=== PATIENT | male | born 1955 | race African-American/Black ===

== ENCOUNTER 2016-08-20 02:51 | Emergency (ER) | payer MEDICAID ==
[~2016-08-20] VITALS: Ht 165.1 cm; Wt 68.9 kg
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
[2016-08-20] MEDS ORDERED: Norco 5mg/325mg tab ORAL ONE (03:15)
[2016-08-20 03:28] VITALS: BP 137/73
[2016-08-20] MEDS ORDERED: IBUPROFEN600 MG ORAL (04:22)
[2016-08-20] MEDS ORDERED: TRAMADOL HCL50 MG ORAL (04:22)
[2016-08-20 04:26] VITALS: BP 137/73
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
== END 2016-08-20 04:26 | disposition home or self-care (01) ==
LOC: EMR 03:10
DX: S20.212A Contusion of left front wall of thorax, initial encounter (principal); E11.9 Type 2 diabetes mellitus without complications; V47.0XXA Car driver injured in collision with fixed or stationary object in nontraffic accident, initial encounter; Y93.9 Activity, unspecified; Y92.9 Unspecified place or not applicable; F17.200 Nicotine dependence, unspecified, uncomplicated
CPT/HCPCS: 99284

== ENCOUNTER 2016-11-26 05:18 | Emergency (ER) | payer MEDICAID ==
[~2016-11-26] VITALS: Ht 165.1 cm; Wt 67.6 kg
[~2016-11-26 05:18] MED LIST: IBUPROFEN600 MG ORAL; TRAMADOL HCL50 MG ORAL
[2016-11-26] MEDS ORDERED: NKM (05:36)
[2016-11-26 05:40] VITALS: BP 130/86
[2016-11-26] MEDS ORDERED: HYDROCODON-ACE1 EA15 ORAL (05:45)
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
[2016-11-26 05:52] VITALS: BP 130/86
== END 2016-11-26 05:52 | disposition home or self-care (01) ==
LOC: EMR 05:30
DX: S52.502D Unspecified fracture of the lower end of left radius, subsequent encounter for closed fracture with routine healing (principal); X58.XXXD Exposure to other specified factors, subsequent encounter; E11.9 Type 2 diabetes mellitus without complications
CPT/HCPCS: 99283

== ENCOUNTER 2016-12-16 07:13 | Emergency (ER) | payer MEDICAID ==
[~2016-12-16] VITALS: Ht 165.1 cm; Wt 67.1 kg
[~2016-12-16 07:13] MED LIST changes: +HYDROCODON-ACE1 EA15 ORAL; +NKM
[2016-12-16 07:36] VITALS: BP 126/89
[2016-12-16] MEDS ORDERED: IBUPROFEN600 MG ORAL (07:43)
[2016-12-16] MEDS ORDERED: TRAMADOL HCL50 MG ORAL (07:43)
[2016-12-16 07:50] VITALS: BP 126/89
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
== END 2016-12-16 07:50 | disposition home or self-care (01) ==
LOC: EMR 07:48
DX: S62.102D Fracture of unspecified carpal bone, left wrist, subsequent encounter for fracture with routine healing (principal); E11.9 Type 2 diabetes mellitus without complications
CPT/HCPCS: 99284

== ENCOUNTER 2017-02-06 05:04 | Emergency (ER) | payer MEDICAID ==
[~2017-02-06] VITALS: Ht 165.1 cm; Wt 64.4 kg
[2017-02-06 05:27] VITALS: BP 116/79
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
[2017-02-06] MEDS ORDERED: IBUPROFEN600 MG ORAL (05:45)
[2017-02-06 05:58] VITALS: BP 110/76
--- NOTE | 2017-02-06 11:25 | Diagnostic Imaging Report ---
Clinical Indication:PAIN Technique: 3 views of the left wrist Comparison: None Findings: There is an impacted comminuted posteriorly angulated fracture deformity of the distal radius, which enters the joint surface. No definite associated ulnar fracture. No ulnar styloid is visualized, however. No carpal fracture. Bones are osteoporotic. Impression: Positive for distal radial fracture, age indeterminate. Correlate with clinical findings This agrees with the ER physician findings reported in the electronic medical record
--- NOTE | 2017-02-06 11:25 | Diagnostic Imaging Report ---
Indication: SOB Technique: One view of the chest Comparison: none Findings: Lungs and pleural spaces are clear. Heart size is normal. Impression: No acute process
== END 2017-02-06 05:58 | disposition home or self-care (01) ==
LOC: EMR 05:23
DX: S52.502A Unspecified fracture of the lower end of left radius, initial encounter for closed fracture (principal); X58.XXXA Exposure to other specified factors, initial encounter; Y92.9 Unspecified place or not applicable; E11.9 Type 2 diabetes mellitus without complications
CPT/HCPCS: 71010; 99284

== ENCOUNTER 2017-11-03 10:34 | Emergency (ER) | payer MEDICAID ==
[~2017-11-03] VITALS: Ht 175.3 cm; Wt 61.2 kg
[2017-11-03 10:39] VITALS: BP 157/89
[2017-11-03] MEDS ORDERED: Norco 5mg/325mg tab ORAL ONE (11:00)
[2017-11-03] MEDS ORDERED: Tetanus/Diptheria/Pertussis Vaccine 0.5ml Syr IM ONE (11:00)
--- NOTE | 2017-11-03 11:54 | Diagnostic Imaging Report ---
EXAM: CT Chest Without Intravenous Contrast CLINICAL HISTORY: PAIN TECHNIQUE: Axial computed tomography images of the chest without intravenous contrast. For the combined chest, abdomen, and pelvis exams, CTDI is 10. 91 mGy and DLP is 701 mGy-cm. One or more of the following dose reduction techniques were used: automated exposure control, adjustment of the mA and/or kV according to patient size, use of iterative reconstruction technique. COMPARISON: No relevant prior studies available. FINDINGS: Lungs: Scattered paraseptal emphysematous changes prominently in the upper lung zones. The lungs are otherwise clear. Pleural space: Unremarkable. No pneumothorax. No significant effusion. Heart: Unremarkable. No cardiomegaly. No significant pericardial effusion. Bones/joints: Remote healed fracture deformities of the anterolateral aspects of the left fourth and fifth ribs. No dislocation. Soft tissues: Unremarkable. Vasculature: Atherosclerotic calcifications are noted within the aortic arch. No aneurysmal dilatation seen in the thoracic aorta. Lymph nodes: Unremarkable. No enlarged lymph nodes. IMPRESSION: 1. Scattered paraseptal emphysematous changes prominently in the upper lung zones. 2. Remote healed fracture deformities of the anterolateral aspects of the left fourth and fifth ribs. EXAM: CT Abdomen and Pelvis Without Intravenous Contrast CLINICAL HISTORY: PAIN TECHNIQUE: Axial computed tomography images of the abdomen and pelvis without intravenous contrast. For the combined chest, abdomen, and pelvis exams, CTDI is 10.91 mGy and DLP is 701 mGy-cm. One or more of the following dose reduction techniques were used: automated exposure control, adjustment of the mA and/or kV according to patient size, use of iterative reconstruction technique. COMPARISON: No relevant prior studies available. FINDINGS: Lung bases: Unremarkable. No mass. No consolidation. ABDOMEN: Liver: Mild hepatomegaly, measuring 19.6 cm craniocaudally. The liver otherwise appears unremarkable. Gallbladder and bile ducts: Unremarkable. No calcified stones. No ductal dilation. Pancreas: Unremarkable. No ductal dilation. Spleen: Unremarkable. No splenomegaly. Adrenals: Unremarkable. No mass. Kidneys and ureters: Unremarkable. No obstructing stones. No hydronephrosis. Stomach and bowel: Mild gaseous distention of the sigmoid colon, nonspecific. Otherwise appears unremarkable without focal wall thickening. No evidence of obstruction. Normal caliber of small bowel loops. Stomach and GE junction appear unremarkable. PELVIS: Appendix: No findings to suggest acute appendicitis. Bladder: Unremarkable. No stones. Reproductive: Unremarkable as visualized. ABDOMEN and PELVIS: Intraperitoneal space: Unremarkable. No free air. No significant fluid collection. Bones/joints: No acute fracture. No dislocation. Soft tissues: Unremarkable. Vasculature: Unremarkable. No abdominal aortic aneurysm. Lymph nodes: Unremarkable. No enlarged lymph nodes. IMPRESSION: 1. Mild hepatomegaly, measuring 19.6 cm craniocaudally. 2. Mild gaseous distention of the sigmoid colon, nonspecific.
--- NOTE | 2017-11-03 12:00 | Diagnostic Imaging Report ---
EXAM: CT Maxillofacial Without Intravenous Contrast CLINICAL HISTORY: PAIN TECHNIQUE: Axial computed tomography images of the face without intravenous contrast. CTDI is 28.19 mGy and DLP is 532.82 mGy-cm. One or more of the following dose reduction techniques were used: automated exposure control, adjustment of the mA and/or kV according to patient size, use of iterative reconstruction technique. COMPARISON: No relevant prior studies available. FINDINGS: Bones/joints: Comminuted mildly displaced nasal bone fracture with overlying soft tissue swelling. Mildly displaced fracture of the left anterior maxillary sinus wall. Dehiscence of the right lamina papyracea/medial right orbital wall. Soft tissues: Bilateral periorbital and maxillary soft tissue swelling. Orbits: See above. Orbits otherwise appear intact. Sinuses: Fluid level in the left maxillary sinus, opacification of the right maxillary sinus, and mucosal thickening in the ethmoid and sphenoid sinuses. IMPRESSION: 1. Comminuted and mildly displaced nasal bone fracture with overlying soft tissue swelling. 2. Mildly displaced fracture of the left anterior maxillary sinus wall. 3. Dehiscence of the right lamina papyracea/medial right orbital wall. 4. Fluid level in the left maxillary sinus, opacification of the right maxillary sinus, and mucosal thickening in the ethmoid and sphenoid sinuses. 5. Bilateral periorbital and maxillary soft tissue swelling.
--- NOTE | 2017-11-03 12:10 | Diagnostic Imaging Report ---
EXAM: CT Head Without Intravenous Contrast CLINICAL HISTORY: PAIN TECHNIQUE: Axial computed tomography images of the head/brain without intravenous contrast. CTDI is 70.38 mGy and DLP is 1316 mGy-cm. One or more of the following dose reduction techniques were used: automated exposure control, adjustment of the mA and/or kV according to patient size, use of iterative reconstruction technique. COMPARISON: CT of the facial bones dated 11/03/17 FINDINGS: Brain: Unremarkable. No evidence of acute intracranial hemorrhage. No significant white matter disease. No edema. No mass effect or midline shift. Ventricles: Unremarkable. No ventriculomegaly. Bones/joints: Dehiscence of the right lamina papyracea. Soft tissues: Bilateral periorbital soft tissue swelling. Sinuses: Mucosal thickening in the ethmoid and sphenoid sinuses with a fluid level in the left maxillary sinus and opacification of the right maxillary sinus. Mastoid air cells: Unremarkable as visualized. No mastoid effusion. IMPRESSION: 1. No acute intracranial findings. 2. Mucosal thickening in the ethmoid and sphenoid sinuses with a fluid level in the left maxillary sinus and opacification of the right maxillary sinus. 3. Bilateral periorbital soft tissue swelling.
[2017-11-03] MEDS ORDERED: NORCO 5-325 TA1 EACH ORAL (13:22)
[2017-11-03] MEDS ORDERED: AMOXICILLIN500 MG ORAL (13:22)
[2017-11-03 13:51] VITALS: BP 150/74
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
== END 2017-11-03 13:52 | disposition home or self-care (01) ==
LOC: EDBD 10:34 → EMR 11:47
DX: S02.2XXA Fracture of nasal bones, initial encounter for closed fracture (principal); S02.40DA Maxillary fracture, left side, initial encounter for closed fracture; S00.01XA Abrasion of scalp, initial encounter; Y04.2XXA Assault by strike against or bumped into by another person, initial encounter; Y92.9 Unspecified place or not applicable; Z23 Encounter for immunization
CPT/HCPCS: 70450; 70486; 71250; 74176; 90471; 90715; 99284

== ENCOUNTER 2019-06-22 16:40 | Emergency (ER) | payer MEDICARE, MEDICAID ==
[~2019-06-22] VITALS: Ht 165.1 cm; Wt 63.5 kg
[~2019-06-22 16:40] MED LIST changes: +AMOXICILLIN500 MG ORAL; +NORCO 5-325 TA1 EACH ORAL
[2019-06-22 16:45] VITALS: BP 126/92
--- NOTE | 2019-06-22 16:45 | NUR ---
ED Nurse Note: Patient was BIBA RA 67 from work for syncopal episode. PT admits to loss of conscious, denies any injury. AAO x4, VSS at this time.
--- NOTE | 2019-06-22 16:46 | NUR ---
ED Nurse Note: Patient presented with open wound on his left ring finger, stated it was a cut, and it got infected.
--- NOTE | 2019-06-22 17:15 | NUR ---
ED Nurse Note: blood specimen collected sent down
[2019-06-22 17:49] LABS: BASOPHILS % (AUTO) 1.3 % (0.0-2.0); EOSINOPHILS % (AUTO) 0.2 % (0.0-3.0); HEMATOCRIT 36.1 % (42.0-52.0); LYMPHOCYTES % (AUTO) 10.6 % (20.0-45.0); MEAN CORPUSCULAR VOLUME 100 FL (80-99); MONOCYTES % (AUTO) 7.1 % (1.0-10.0); NEUTROPHILS % (AUTO) 80.7 % (45.0-75.0); PLATELET COUNT 240 K/UL (150-450); RED CELL DISTRIBUTION WIDTH 16.7 % (11.6-14.8); WHITE BLOOD COUNT 10.6 K/UL (4.8-10.8)
[2019-06-22 17:55] LABS: INR 1.3 (0.9-1.1)
[2019-06-22 18:01] LABS: ANION GAP 13 mmol/L (5-15); BLOOD UREA NITROGEN 6 mg/dL (7-18); CALCIUM 8.6 MG/DL (8.5-10.1); CARBON DIOXIDE 22 MMOL/L (21-32); CHLORIDE 103 MMOL/L (98-107); CREATININE 1.3 MG/DL (0.55-1.30); POTASSIUM 3.2 MMOL/L (3.5-5.1); SODIUM 138 MMOL/L (136-145)
[2019-06-22 18:13] LABS: ALANINE AMINOTRANSFERASE 66 U/L (12-78); ALBUMIN 2.3 G/DL (3.4-5.0); ALBUMIN/GLOBULIN RATIO 0.4 (1.0-2.7); ALKALINE PHOSPHATASE 447 U/L (46-116); ASPARTATE AMINO TRANSFERASE 128 U/L (15-37); BILIRUBIN,TOTAL 2.4 MG/DL (0.2-1.0)
[2019-06-22 18:15] LABS: BILIRUBIN,DIRECT 1.4 MG/DL (0.0-0.3)
[2019-06-22 18:40] VITALS: BP 118/88
--- NOTE | 2019-06-22 18:41 | NUR ---
ED Nurse Note: Patient resting in the bed with eyes closed, VSS at this time, no acute distres toned.
--- NOTE | 2019-06-22 19:44 | NUR ---
HAND-OFF: Report given to Willie Hernandez RN.
[2019-06-22 20:00] VITALS: BP 121/79
--- NOTE | 2019-06-22 21:27 | NUR ---
ED Nurse Note: report given to luisa cruz of [facility]. patient to be admitted to [place] [id number] under the care of laura wallace.
--- NOTE | 2019-06-22 22:14 | Emergency Room Report ---
History of Present Illness General Chief Complaint: Syncope Source: Patient, EMS Present Illness HPI This patient states earlier today he was feeling lightheaded and had a syncopal episode at work. He denies injury or head trauma. He states that he has not felt very well the past few days. He states he has been coughing. He denies fever chills. He denies nausea or vomiting. He has no other complaints. Allergies: Coded Allergies: No Known Allergies (Unverified , 08/20/16) Patient History Past Medical History: see triage record, DM, HTN, other - HEP C Social History: Reports: drug use; Denies: smoking, alcohol use Reviewed Nursing Documentation: PMH: Agreed; PSxH: Agreed Nursing Documentation-PMH Past Medical History: No History, Except For Hx Hypertension: Yes Hx Diabetes: Yes Hx Neurological Problems: No - Left Radius fracture Review of Systems All Other Systems: negative except mentioned in HPI Physical Exam Vital Signs Date Time Temp Pulse Resp B/P (MAP) Pulse Ox O2 Delivery O2 Flow Rate FiO2 06/22/19 16:36 98.1 86 12 126/92 (103) 100 Room Air Sp02 EP Interpretation: reviewed, normal General Appearance: no apparent distress, alert, GCS 15, non-toxic Head: normocephalic, atraumatic Eyes: bilateral eye normal inspection, bilateral eye PERRL ENT: hearing grossly normal, normal pharynx, no angioedema, normal voice Neck: full range of motion, supple/symm/no masses Respiratory: chest non-tender, lungs clear, normal breath sounds, no respiratory distress, no retraction, no accessory muscle use, speaking full sentences Cardiovascular #1: regular rate, rhythm, no edema Gastrointestinal: normal bowel sounds, non tender, soft, non-distended, no guarding, no rebound Rectal: deferred Musculoskeletal: back normal, normal range of motion, gait/station normal, non- tender, other - Non-healing wound between the 4t and 5th digitis at the web space. Irregular and approximately 2cm. Neurologic: alert, motor strength/tone normal, oriented x3, sensory intact, responsive, speech normal Psychiatric: judgement/insight normal, memory normal, mood/affect normal, no suicidal/homicidal ideation Skin: no rash, normal color Medical Decision Making Diagnostic Impression: Primary Impression: Syncope Additional Impression: non-healing wound of hand ER Course This patient presents with multiple syncopal episodes. Overall, the patient is well-appearing. He denies head injury. He is neurologically intact. The patient's work-up in the emergency department is unremarkable. I feel that this patient should be admitted for further evaluation by cardiology and observation on telemetry. No acute emergency medical condition was identified. The patient was stable for transfer and was transferred to a contracted hospital at the request of the insurance company. Laboratory Tests Test 06/22/19 17:05 White Blood Count 10.6 K/UL (4.8-10.8) Red Blood Count 3.60 M/UL (4.70-6.10) L Hemoglobin 11.0 G/DL (14.2-18.0) L Hematocrit 36.1 % (42.0-52.0) L Mean Corpuscular Volume 100 FL (80-99) H Mean Corpuscular Hemoglobin 30.6 PG (27.0-31.0) Mean Corpuscular Hemoglobin Concent 30.6 G/DL (32.0-36.0) L Red Cell Distribution Width 16.7 % (11.6-14.8) H Platelet Count 240 K/UL (150-450) Mean Platelet Volume 8.8 FL (6.5-10.1) Neutrophils (%) (Auto) 80.7 % (45.0-75.0) H Lymphocytes (%) (Auto) 10.6 % (20.0-45.0) L Monocytes (%) (Auto) 7.1 % (1.0-10.0) Eosinophils (%) (Auto) 0.2 % (0.0-3.0) Basophils (%) (Auto) 1.3 % (0.0-2.0) Prothrombin Time 13.5 SEC (9.30-11.50) H Prothrombin Time INR 1.3 (0.9-1.1) H Activated Partial Thromboplast Time 25 SEC (23-33) Sodium Level 138 MMOL/L (136-145) Potassium Level 3.2 MMOL/L (3.5-5.1) L Chloride Level 103 MMOL/L (98-107) Carbon Dioxide Level 22 MMOL/L (21-32) Anion Gap 13 mmol/L (5-15) Blood Urea Nitrogen 6 mg/dL (7-18) L Creatinine 1.3 MG/DL (0.55-1.30) Estimate Glomerular Filtration Rate > 60 mL/min (>60) Glucose Level 177 MG/DL (74-106) H Calcium Level 8.6 MG/DL (8.5-10.1) Total Bilirubin 2.4 MG/DL (0.2-1.0) H Direct Bilirubin 1.4 MG/DL (0.0-0.3) H Aspartate Amino Transferase (AST) 128 U/L (15-37) H Alanine Aminotransferase (ALT) 66 U/L (12-78) Alkaline Phosphatase 447 U/L (46-116) H Troponin I 0.003 ng/mL (0.000-0.056) Total Protein 8.0 G/DL (6.4-8.2) Albumin 2.3 G/DL (3.4-5.0) L Globulin 5.7 g/dL Albumin/Globulin Ratio 0.4 (1.0-2.7) L EKG Diagnostic Results Rate: normal Rhythm: NSR ST Segments: other - NSST findings Rhythm Strip Diag. Results EP Interpretation: yes Rate: 80's Rhythm: NSR, no PVC's, no ectopy Chest X-Ray Diagnostic Results Chest X-Ray Diagnostic Results : Chest X-Ray Ordered: Yes # of Views/Limited/Complete: 1 View Indication: Other EP Interpretation: Yes Interpretation: no consolidation, no effusion, no pneumothorax, no acute cardiopulmonary disease Impression: No acute disease Electronically Signed by: Dayanna Zuñiga DO Last Vital Signs Date Time Temp Pulse Resp B/P (MAP) Pulse Ox O2 Delivery O2 Flow Rate FiO2 06/22/19 18:40 98.1 82 18 118/88 100 Room Air Disposition: ADMITTED INPATIENT Condition: Stable Referrals: NON PHYSICIAN (PCP) Dayanna Zuñiga DO Jun 22, 2019 22:14
[2019-06-22 22:30] VITALS: BP 121/79
[2019-06-22] MEDS ORDERED: Vancomycin 1 GM in NS 275 ML IVPB ONE (22:30)
--- NOTE | 2019-06-22 22:30 | NUR ---
ED Nurse Note: report given to [facility]. patient stable for transport. iv intact and patent. patient left ed via gurney with all belongings and transfer packet.
--- NOTE | 2019-06-23 10:54 | Diagnostic Imaging Report ---
Indication: Chest pain Technique: One view of the chest Comparison: 02/06/2017 Findings: Lungs and pleural spaces are clear. Heart size is normal. The aorta is tortuous. Findings are unchanged Impression: No acute process
== END 2019-06-22 22:30 | disposition other institution (70) ==
LOC: EDBD 16:40 → EMR 17:20
DX: R55 Syncope and collapse (principal); S61.402A Unspecified open wound of left hand, initial encounter; X58.XXXA Exposure to other specified factors, initial encounter; Y92.9 Unspecified place or not applicable; E11.9 Type 2 diabetes mellitus without complications; I10 Essential (primary) hypertension; Z86.19 Personal history of other infectious and parasitic diseases; R05 Cough; R07.9 Chest pain, unspecified
CPT/HCPCS: 36415; 71045; 80053; 82248; 84484; 85025; 85610; 85730; 93005; 96361; 96365; 99284; J3370; J7030; J7050

== ENCOUNTER 2019-07-12 05:05 | Inpatient (IN) | payer MEDICARE, MEDICAID ==
[~2019-07-12] VITALS: Ht 177.8 cm; Wt 72.6 kg
[2019-07-12 05:10] VITALS: BP 154/91
--- NOTE | 2019-07-12 05:10 | NUR ---
ED Nurse Note: Pt brought into ED from the street by JODIE AMADOR for c/o shortness of breath, cough and reported fever. Pt states he has been feeling short of breath for the last month and it has become worse. Pt was recently DC from [facility] days ago. Per JODIE, pt was given 1 breathing treatment en route with no relief. Audible wheezing noted. Pt is aaox4, breathing is labored, no cardiac distress. Pt connected to director pharmacovigilance and placed into gown. Pt oxgen saturation is 99% on room air at this time.
--- NOTE | 2019-07-12 05:10 | NUR ---
ED Nurse Note: Pt is wearing a mask upon ED arrival.
--- NOTE | 2019-07-12 05:10 | NUR ---
ED Nurse Note: Pt has open wound approx 1-2 inches in length to L 5th digit on hand with yellow discharge and foul odor. Pt placed in trauma room, COVID-19 precuations taken and safety measures in place. Pt has no fever at this time, temp is 98.1F rectal. Will continue to monitor pt.
--- NOTE | 2019-07-12 05:15 | NUR ---
ED Nurse Note: IV line established, blood drawn by RN and sent to lab.
--- NOTE | 2019-07-12 05:25 | Emergency Room Report ---
History of Present Illness General Chief Complaint: Dyspnea/Respdistress Source: Patient, Medical Record, EMS (Ronnie Easley MD) Present Illness HPI This is a 64-year-old male with history of high blood pressure and diabetes. He presents with complaint shortness of breath. Onset for 1 to 2 months per patient. Worse in the last few days. Fever started today. He was just discharged from [facility] after being seen here and transferred there for syncope. He said he was there for 5 days. He was just discharged 4 days ago. Symptoms worsened since he got discharged. Hard time breathing. EMS gave him breathing treatment and sent him here. Patient denies any nausea vomiting. Said he felt weak. Still smoking. Last cocaine use was a week ago. Denies any chest pain. Nothing made it better. Nothing made it worse. Nothing is nonproductive in nature. (Ronnie Easley MD) Allergies: Coded Allergies: No Known Allergies (Unverified , 08/20/16) COVID-19 Screening Contact w/high risk pt: Yes Recent Travel to affected area: No Experienced COVID-19 symptoms?: Yes COVID-19 symptoms experienced: Fever (T>100.4F or >38C), Shortness of Breath, Cough (Ronnie Easley MD) Patient History Past Medical History: see triage record, old chart reviewed, DM, HTN, COPD Past Surgical History: other Pertinent Family History: none Social History: Reports: smoking, alcohol use, drug use Immunizations: other Reviewed Nursing Documentation: PMH: Agreed; PSxH: Agreed (Ronnie Easley MD) Nursing Documentation-PMH Hx Hypertension: Yes Hx Diabetes: Yes Hx Neurological Problems: No - Left Radius fracture (Ronnie Easley MD) Review of Systems Constitutional: Reports: chills, fever, malaise, weakness Eye: Denies: eye pain, blurred vision ENT: Denies: ear pain, nose congestion, throat swelling Respiratory: Reports: cough, shortness of breath Cardiovascular: Denies: chest pain, palpitations Gastrointestinal: Denies: abdominal pain, diarrhea, nausea, vomiting Musculoskeletal: Denies: back pain, joint pain Skin: Denies: rash Neurological: Denies: headache, numbness Endocrine: Denies: increased thirst, increased urine Hematologic/Lymphatic: Denies: easy bruising All Other Systems: negative except mentioned in HPI (Ronnie Easley MD) Physical Exam Vital Signs Date Time Temp Pulse Resp B/P (MAP) Pulse Ox O2 Delivery O2 Flow Rate FiO2 07/12/19 05:02 100.0 100 22 136/72 (93) 92 Room Air Vitals with fever and hypoxia Sp02 EP Interpretation: reviewed, normal General Appearance: alert, mild distress, other - Ill-appearing Head: normocephalic, atraumatic Eyes: bilateral eye PERRL, bilateral eye EOMI ENT: hearing grossly normal, normal pharynx Neck: full range of motion, supple, no meningismus Respiratory: chest non-tender, decreased breath sounds, rhonchi - Mild Cardiovascular #1: regular rate, rhythm, no murmur Gastrointestinal: normal bowel sounds, non tender, no mass, no organomegaly, no bruit, non-distended Musculoskeletal: back normal, normal range of motion, gait/station normal Psychiatric: mood/affect normal (Ronnie Easley MD) Medical Decision Making Diagnostic Impression: Primary Impression: Suspected COVID-19 virus infection Additional Impressions: Community acquired pneumonia Qualified Codes: J18.9 - Pneumonia, unspecified organism Respiratory distress COPD exacerbation Cocaine abuse ER Course Patient presents with respiratory distress. He does have a low-grade fever with cough and congestion. On physical exam, laboratory data and diagnostic study, patient suspected to have coronavirus infection. Antibiotics given. CT scan pending. Patient is stable for transfer based on insurance will admit here. No evidence of ACS, PE, dissection to name a few. I will sign this patient out to Dr. Vera for final disposition. (Ronnie Easley MD) EKG Diagnostic Results Rate: normal Rhythm: NSR ST Segments: other - NSST changes (Ronnie Easley MD) Rhythm Strip Diag. Results EP Interpretation: yes Rate: 92 Rhythm: NSR, no PVC's, no ectopy (Ronnie Easley MD) Chest X-Ray Diagnostic Results Chest X-Ray Diagnostic Results : Chest X-Ray Ordered: Yes # of Views/Limited/Complete: 1 View Indication: Shortness of Breath EP Interpretation: Yes Interpretation: no effusion, no pneumothorax, other - Interstitial infiltrate in the right lower lobe Impression: Other - RLL interstitial infiltrate Electronically Signed by: Ronnie Easley MD (Ronnie Easley MD) CT/MRI/US Diagnostic Results CT/MRI/US Diagnostic Results : Impression Final Report EXAM: CT Chest Without Intravenous Contrast CLINICAL HISTORY: SOB TECHNIQUE: Axial computed tomography images of the chest without intravenous contrast. CTDI is 4.6 mGy and DLP is 161 mGy-cm. One or more of the following dose reduction techniques were used: automated exposure control, adjustment of the mA and/or kV according to patient size, use of iterative reconstruction technique. COMPARISON: 11/03/17 FINDINGS: Lungs: Exam mildly limited by patient respiratory motion. There is no evidence of airspace consolidation. No pulmonary edema. Mild emphysematous changes again seen with peripheral bulla in both upper lobes. Pleural space: Unremarkable. No pneumothorax. No significant effusion. Heart: Unremarkable. No cardiomegaly. No significant pericardial effusion. Bones/joints: No acute fracture or dislocation. Old, healed left-sided rib fractures again seen. Soft tissues: Unremarkable. Vasculature: Unremarkable. No thoracic aortic aneurysm. Lymph nodes: Unremarkable. No enlarged lymph nodes. IMPRESSION: No evidence of airspace consolidation or acute interstitial abnormality. Mild emphysematous changes. No pleural effusions or pneumothorax. Radiologist: Frank Mcelroy M.D. Electronically Signed: 07/12/19 07:38 Study ready at 07:31 and initial results transmitted at 07:38 (Robbie Vera MD) Last Vital Signs Date Time Temp Pulse Resp B/P (MAP) Pulse Ox O2 Delivery O2 Flow Rate FiO2 07/12/19 05:02 100.0 100 22 136/72 (93) 92 Room Air Status: improved (Ronnie Easley MD) Reevaluation Time: 08:43 Reevaluation Impression Assumed care of the patient approximately 6:30 AM from previous provider. Briefly, this 64-year-old male presenting for shortness of breath, cough with low-grade fever. Labs have returned largely within normal limits aside from elevated liver enzymes and bilirubin, cocaine positive, slight anemia. At the time of signout we are awaiting CT scan. Show no pleural effusion, no interstitial abnormality, no consolidation but note mild emphysematous changes. The patient received steroids, MDI inhaler, ceftriaxone azithromycin. The patient's symptoms and history are concerning for COVID-19 infection. Flu swabs are negative. Will send coronavirus swabs. Patient will be admitted with isolation precautions. Admit to panel physician. (Robbie Vera MD) Disposition: ADMITTED INPATIENT Condition: Serious Ronnie Easley MD Jul 12, 2019 05:25 Robbie Vera MD Jul 12, 2019 08:46
[2019-07-12] MEDS ORDERED: Acetaminophen 500mg (ES) tab ORAL ONE (05:30)
--- NOTE | 2019-07-12 05:35 | NUR ---
ED Nurse Note: Urine collected and sent to lab.
[2019-07-12 05:38] LABS: BASOPHILS % (AUTO) 1.2 % (0.0-2.0); EOSINOPHILS % (AUTO) 2.3 % (0.0-3.0); HEMATOCRIT 31.9 % (42.0-52.0); HEMOGLOBIN 10.5 G/DL (14.2-18.0); LYMPHOCYTES % (AUTO) 40.2 % (20.0-45.0); MEAN CORPUSCULAR VOLUME 94 FL (80-99); MONOCYTES % (AUTO) 15.8 % (1.0-10.0); NEUTROPHILS % (AUTO) 40.5 % (45.0-75.0); PLATELET COUNT 286 K/UL (150-450); RED CELL DISTRIBUTION WIDTH 15.1 % (11.6-14.8); WHITE BLOOD COUNT 9.1 K/UL (4.8-10.8)
[2019-07-12 05:59] LABS: ANION GAP 9 mmol/L (5-15); BLOOD UREA NITROGEN 9 mg/dL (7-18); CALCIUM 8.1 MG/DL (8.5-10.1); CARBON DIOXIDE 26 MMOL/L (21-32); CHLORIDE 105 MMOL/L (98-107); CREATININE 0.9 MG/DL (0.55-1.30); INR 1.1 (0.9-1.1); POTASSIUM 3.3 MMOL/L (3.5-5.1); SODIUM 140 MMOL/L (136-145)
[2019-07-12 06:08] LABS: APPEARANCE,URINE CLEAR; BILIRUBIN, URINE NEGATIVE (NEGATIVE); COLOR,URINE BROWN; GLUCOSE, URINE (UA) NEGATIVE (NEGATIVE); KETONES,URINE NEGATIVE (NEGATIVE); LEUKOCYTE ESTERASE ,URINE NEGATIVE (NEGATIVE); NITRITE,URINE NEGATIVE (NEGATIVE); PH,URINE 6 (4.5-8.0); PROTEIN,URINE 2+ (NEGATIVE); UROBILINOGEN,URINE 12 MG/DL (0.0-1.0)
[2019-07-12 06:12] LABS: ALANINE AMINOTRANSFERASE 89 U/L (12-78); ALBUMIN 2.7 G/DL (3.4-5.0); ALBUMIN/GLOBULIN RATIO 0.5 (1.0-2.7); ALKALINE PHOSPHATASE 416 U/L (46-116); ASPARTATE AMINO TRANSFERASE 156 U/L (15-37); BILIRUBIN,TOTAL 1.1 MG/DL (0.2-1.0); CKMB 2.8 NG/ML (0.0-3.6); CREATINE KINASE 272 U/L (26-308)
[2019-07-12 06:13] LABS: BILIRUBIN,DIRECT 0.9 MG/DL (0.0-0.3)
[2019-07-12] MEDS ORDERED: Azithromycin 500 MG in NS 275 ML IV ONE (06:30)
[2019-07-12] MEDS ORDERED: Solu-MEDROL 125mg Inj IVP ONE (06:30)
[2019-07-12] MEDS ORDERED: cefTRIAXone 1 GM in NS 55 ML IVPB ONE (06:30)
--- NOTE | 2019-07-12 06:30 | NUR ---
ED Nurse Note: Pt is sleeping at this time. No acute distress noted. Pt does not appear to be short of breath. IV antibx initiated. Will continue to monitor. All COVID-19 precautions taken, pt is wearing a mask.
[2019-07-12 06:40] VITALS: BP 123/71
--- NOTE | 2019-07-12 07:07 | Diagnostic Imaging Report ---
EXAM: XR Chest, 1 View CLINICAL HISTORY: SOB TECHNIQUE: Frontal view of the chest. COMPARISON: 06/22/19. FINDINGS: Lungs: Lungs are slightly hypoinflated. No definite airspace consolidation. No pulmonary edema. Minimal atelectasis seen in the lung bases. Pleural space: Unremarkable. No pneumothorax. Heart: Unremarkable. No cardiomegaly. Mediastinum: No mediastinal widening or shift. Bones/joints: No acute osseous abnormality. IMPRESSION: No definite acute cardiopulmonary abnormality.
--- NOTE | 2019-07-12 07:08 | NUR ---
ED Nurse Note: Pt in radiology
--- NOTE | 2019-07-12 07:08 | NUR ---
HAND-OFF: Report given to GUS Mckeon Pt is in CT scan at this time. No acute distress noted. Vital signs are stable.
--- NOTE | 2019-07-12 07:11 | NUR ---
ED Nurse Note: Report received from GUS Tiwari. Plan of care endorsed. Pt currently in radiology
--- NOTE | 2019-07-12 07:14 | NUR ---
ED Nurse Note: Pt back from radiology
--- NOTE | 2019-07-12 07:27 | NUR ---
ED Nurse Note: Pt sleeping comfortably in bed with stable vital signs. No signs of acute distress noted. Respirations even and unlabored on room air. 95% O2 saturation. Pt running azithromycin at prescribed rate.
--- NOTE | 2019-07-12 07:39 | Diagnostic Imaging Report ---
EXAM: CT Chest Without Intravenous Contrast CLINICAL HISTORY: SOB TECHNIQUE: Axial computed tomography images of the chest without intravenous contrast. CTDI is 4.6 mGy and DLP is 161 mGy-cm. One or more of the following dose reduction techniques were used: automated exposure control, adjustment of the mA and/or kV according to patient size, use of iterative reconstruction technique. COMPARISON: 11/03/17 FINDINGS: Lungs: Exam mildly limited by patient respiratory motion. There is no evidence of airspace consolidation. No pulmonary edema. Mild emphysematous changes again seen with peripheral bulla in both upper lobes. Pleural space: Unremarkable. No pneumothorax. No significant effusion. Heart: Unremarkable. No cardiomegaly. No significant pericardial effusion. Bones/joints: No acute fracture or dislocation. Old, healed left-sided rib fractures again seen. Soft tissues: Unremarkable. Vasculature: Unremarkable. No thoracic aortic aneurysm. Lymph nodes: Unremarkable. No enlarged lymph nodes. IMPRESSION: No evidence of airspace consolidation or acute interstitial abnormality. Mild emphysematous changes. No pleural effusions or pneumothorax.
--- NOTE | 2019-07-12 08:25 | NUR ---
ED Nurse Note: Pt desating to 88-90% on room air. Applied 2 L NC, pt now 95%. Respirations even and unlabored. No SOB noted.
[2019-07-12 08:49] VITALS: BP 129/74
--- NOTE | 2019-07-12 08:49 | NUR ---
ED Nurse Note: Report given to GUS Reyna in SDU
--- NOTE | 2019-07-12 09:10 | NUR ---
ED Nurse Note: Pt transferred safely on the monitor to SDU with rule out COVID precautions in place. Belongings list verified @ bedside
--- NOTE | 2019-07-12 09:10 | NUR ---
NURSE NOTES: received patient report from slime cruz from ER. patient came in via gurney. patient came in droplet px. on 2 Li NC. cardiac monitor technician initiated. SR on the monitor. IV line noted. VS taken and recorded.noted to be alert oriented. belongings checked. patient was oriented to the floor.under the care of Dr Alan. will continue to monitor.
[2019-07-12 09:22] VITALS: BP 145/78
--- NOTE | 2019-07-12 10:30 | NUR ---
NURSE NOTES: ATTEMPTED TO CALL DR FERNANDEZ FOR ADMISSION ORDERS. VOICEMAIL SAYS: "SABINA FERNANDEZ IS ON THE PHONE". WILL ATTEMP AGAIN LATER.
[2019-07-12 12:00] VITALS: BP 155/80
[2019-07-12] MEDS ORDERED: Nitroglycerin Subl 0.4mg tab SL PRN (13:00)
[2019-07-12] MEDS: Aspirin Baby 81mg ORAL SCH (14:00)
[2019-07-12] MEDS: Potassium Chloride 40 MEQ in 1/2 NS 1000ml 1,000 ML IV SCH (14:00)
--- NOTE | 2019-07-12 16:14 | History and Physical Report ---
DATE OF ADMISSION: 07/12/2019 CHIEF COMPLAINT AND REASON FOR HOSPITALIZATION: The patient is a 64-year-old homeless male admitted with, "I passed out." HISTORY OF PRESENT ILLNESS: The patient is a poor historian. Apparently, he was recently in [facility] after being seen in the emergency room for syncope at [place]. There was some complaint of difficulty breathing and he came to the emergency room again. There is a history of cocaine use and smoking. A COVID-19 test was done in the emergency room and is pending. There is no fever or chills. A CT of the chest and a chest x-ray were negative. PAST MEDICAL HISTORY: Apparently, he has diabetes and hypertension, but he is not taking medications. PAST SURGICAL HISTORY: Denies. ALLERGIES: Unable to state. HABITS: He is a smoker, uses cocaine. SOCIAL HISTORY: He is homeless. SYSTEM REVIEW: HEAD, EYES, EARS, NOSE, AND THROAT: Vision and hearing is good. ENDOCRINE: History of diabetes. PULMONARY: History of smoking. He is apparently short of breath. CARDIAC: No definite angina or GA. GASTROINTESTINAL: No nausea or vomiting. GENITOURINARY: No dysuria. NEUROLOGICAL: He states he passed out. No details. He is a poor historian. PHYSICAL EXAMINATION: GENERAL: The patient is lying in bed, in no acute distress. VITAL SIGNS: Temperature 96.1, pulse 88, respirations 19, and blood pressure 145/78. O2 saturation 100%. HEAD, EYES, EARS, NOSE, AND THROAT: Sclerae are nonicteric. Ocular motions intact in all directions. Oral mucosa moist. NECK: No adenopathy. LUNGS: Clear. HEART: Regular rhythm. No murmur. ABDOMEN: Soft without organomegaly or masses. EXTREMITIES: No edema, cyanosis, or clubbing. NEUROLOGIC: He is alert, responsive, withdrawn, asking to eat. Ocular motions intact in all directions. Smile symmetric. Tongue is midline. He moves all extremities. PERTINENT LABORATORY DATA: White count 9.1, hemoglobin 10.5, and platelets 286,000. Sodium 140, potassium 3.3, creatinine 0.9, glucose 110. Troponin 0.003. Alkaline phosphatase 416, has elevated ALT and AST. Bilirubin, total 1.1. CK total 272. BNP 89. IMPRESSION: 1. Possible syncope. 2. Homeless status. 3. Complaints of shortness of breath. Exam negative. Chest x-ray negative. 4. At risk for COVID-19 due to homeless status. PLAN: The patient will be observed. We will hydrate him. In view of the fact he has elevated liver enzymes, could be having rhabdomyolysis. We will give him supportive care. Hold off on any toxic medications. Observe neurologic status and pulmonary status. Channing Alan M.D. DR: RUBÉN JOB#: [id number] CC:
--- NOTE | 2019-07-12 17:16 | Infectious Diseases Prog Note ---
Assessment/Plan Assessment/Plan Full consult: A) 1) rule covid-19 infection, fevers, uri/bronchitis, viral syndrome, ? cap 2) pmh noted 3) allergies - nkda P) 1) azithromycin, ceftriaxone 2) f/u chest x-ray 3) thank you Subjective Allergies: Coded Allergies: No Known Allergies (Unverified , 08/20/16) Objective Vital Signs Last 24 Hour Vital Signs Date Time Temp Pulse Resp B/P (MAP) Pulse Ox O2 Delivery O2 Flow Rate FiO2 07/12/19 16:00 Nasal Cannula 2.0 07/12/19 15:20 88 07/12/19 12:00 97.9 92 21 155/80 (105) 97 07/12/19 12:00 Nasal Cannula 2.0 07/12/19 11:57 129 07/12/19 11:35 96.1 07/12/19 09:38 81 07/12/19 09:28 Nasal Cannula 2.0 07/12/19 09:22 96.1 88 19 145/78 (100) 100 07/12/19 09:10 97.8 71 22 131/72 99 Nasal Cannula 2.0 07/12/19 08:49 78 22 129/74 97 Nasal Cannula 2.0 07/12/19 06:40 98.1 88 22 123/71 97 Room Air 07/12/19 05:10 98.1 94 21 154/91 99 Room Air 07/12/19 05:10 100 22 Room Air 07/12/19 05:02 100.0 100 22 136/72 (93) 92 Room Air Height (Feet): 5 Height (Inches): 10.00 Weight (Pounds): 160 Microbiology Date/Time Source Procedure Growth Status 07/12/19 05:25 Nasal Nares - Final Complete 07/12/19 05:25 Nasal Nares - Final Complete 07/12/19 05:35 Rectum Received Laboratory Tests Test 07/12/19 05:15 07/12/19 05:40 White Blood Count 9.1 K/UL (4.8-10.8) Red Blood Count 3.40 M/UL (4.70-6.10) L Hemoglobin 10.5 G/DL (14.2-18.0) L Hematocrit 31.9 % (42.0-52.0) L Mean Corpuscular Volume 94 FL (80-99) Mean Corpuscular Hemoglobin 30.8 PG (27.0-31.0) Mean Corpuscular Hemoglobin Concent 32.7 G/DL (32.0-36.0) Red Cell Distribution Width 15.1 % (11.6-14.8) H Platelet Count 286 K/UL (150-450) Mean Platelet Volume 6.6 FL (6.5-10.1) Neutrophils (%) (Auto) 40.5 % (45.0-75.0) L Lymphocytes (%) (Auto) 40.2 % (20.0-45.0) Monocytes (%) (Auto) 15.8 % (1.0-10.0) H Eosinophils (%) (Auto) 2.3 % (0.0-3.0) Basophils (%) (Auto) 1.2 % (0.0-2.0) Prothrombin Time 12.1 SEC (9.30-11.50) H Prothromb Time International Ratio 1.1 (0.9-1.1) Activated Partial Thromboplast Time 27 SEC (23-33) Sodium Level 140 MMOL/L (136-145) Potassium Level 3.3 MMOL/L (3.5-5.1) L Chloride Level 105 MMOL/L (98-107) Carbon Dioxide Level 26 MMOL/L (21-32) Anion Gap 9 mmol/L (5-15) Blood Urea Nitrogen 9 mg/dL (7-18) Creatinine 0.9 MG/DL (0.55-1.30) Estimat Glomerular Filtration Rate > 60 mL/min (>60) Glucose Level 110 MG/DL (74-106) H Lactic Acid Level 1.60 mmol/L (0.4-2.0) Calcium Level 8.1 MG/DL (8.5-10.1) L Total Bilirubin 1.1 MG/DL (0.2-1.0) H Direct Bilirubin 0.9 MG/DL (0.0-0.3) H Aspartate Amino Transf (AST/SGOT) 156 U/L (15-37) H Alanine Aminotransferase (ALT/SGPT) 89 U/L (12-78) H Alkaline Phosphatase 416 U/L (46-116) H Total Creatine Kinase 272 U/L (26-308) Creatine Kinase MB 2.8 NG/ML (0.0-3.6) Creatine Kinase MB Relative Index 1.0 Troponin I 0.003 ng/mL (0.000-0.056) Pro-B-Type Natriuretic Peptide 89 pg/mL (0-125) Total Protein 8.6 G/DL (6.4-8.2) H Albumin 2.7 G/DL (3.4-5.0) L Globulin 5.9 g/dL Albumin/Globulin Ratio 0.5 (1.0-2.7) L Urine Color Brown Urine Appearance Clear Urine pH 6 (4.5-8.0) Urine Specific Boaz 1.020 (1.005-1.035) Urine Protein 2+ (NEGATIVE) H Urine Glucose (UA) Negative (NEGATIVE) Urine Ketones Negative (NEGATIVE) Urine Blood 2+ (NEGATIVE) H Urine Nitrite Negative (NEGATIVE) Urine Bilirubin Negative (NEGATIVE) Urine Urobilinogen 12 MG/DL (0.0-1.0) H Urine Leukocyte Esterase Negative (NEGATIVE) Urine RBC 2-4 /HPF (0 - 0) H Urine WBC 0-2 /HPF (0 - 0) Urine Squamous Epithelial Cells Occasional /LPF Urine Amorphous Sediment Few /LPF (NONE) H Urine Bacteria Few /HPF (NONE) Urine Mucus Few /LPF (NONE/OCC) H Urine Opiates Screen Negative (NEGATIVE) Urine Barbiturates Screen Negative (NEGATIVE) Phencyclidine (PCP) Screen Negative (NEGATIVE) Urine Amphetamines Screen Negative (NEGATIVE) Urine Benzodiazepines Screen Negative (NEGATIVE) Urine Cocaine Screen Positive (NEGATIVE) H Urine Marijuana (THC) Screen Negative (NEGATIVE) Current Medications Medications (Trade) Dose Ordered Sig/Pop Route PRN Reason Start Time Stop Time Status Last Admin Dose Admin Acetaminophen (Tylenol) 650 mg Q4H PRN ORAL Mild Pain or Fever 07/12/19 11:45 08/11/19 11:44 Aspirin (ASA) 81 mg DAILY ORAL 07/12/19 13:00 08/26/19 12:59 07/12/19 14:00 Azithromycin (Zithromax) 250 mg DAILY ORAL 07/13/19 09:00 07/20/19 08:59 Dextrose (Dextrose 50%) 25 ml Q30M PRN IV Hypoglycemia 07/12/19 13:00 10/10/19 12:59 Dextrose (Dextrose 50%) 50 ml Q30M PRN IV Hypoglycemia 07/12/19 13:00 10/10/19 12:59 Heparin Sodium (Porcine) (Heparin 5000 units/ml) 5,000 units EVERY 12 HOURS SUBQ 07/12/19 21:00 08/26/19 20:59 Nitroglycerin (Ntg) 0.4 mg Q5M PRN SL Prn Chest Pain 07/12/19 13:00 08/11/19 12:59 Potassium Chloride 40 meq/ Sodium Chloride 1,020 ml @ 75 mls/hr [id number] IV 07/12/19 13:30 08/11/19 13:29 07/12/19 14:00 Phong Singleton MD Jul 12, 2019 17:16
[2019-07-12] MEDS ORDERED: NS 275ml ONE (17:27)
--- NOTE | 2019-07-12 19:14 | NUR ---
HAND-OFF: Report given to gary cruz.
--- NOTE | 2019-07-12 19:15 | NUR ---
NURSE NOTES: Received patient from GUS Reyna. Patient is aaox4, vss, and no acute distress. Patient is cooperative, clean, on room air, and on sports bookmaker. IV site on left hand 22g and is patent and intact. Left hand 5th digit has an open wound nondraining covered with a bandage. Bed at its lowest position, call light in reach and x3 bed rails are up.
--- NOTE | 2019-07-12 19:15 | NUR ---
NURSE NOTES: Received report from Rod Blake RN. Addendum: 07/12/19 at 2249 by Ben Gabriel RN Wrong patient
[2019-07-12 20:00] VITALS: BP 153/89
--- NOTE | 2019-07-12 20:15 | Consultation ---
DATE OF CONSULTATION: 07/12/2019 INFECTIOUS DISEASE CONSULTATION CONSULTING PHYSICIAN: Phong Singleton M.D. ATTENDING PHYSICIAN: Channing Alan M.D. REFERRING PHYSICIAN: Channing Alan M.D. REASON FOR CONSULTATION: Possible COVID-19 infection, possible community-acquired pneumonia, fevers. CHIEF COMPLAINT: The patient's chief complaint coming into the hospital is pneumonia with possible COVID-19 infection or Coronavirus-19 infection. HISTORY OF PRESENT ILLNESS: This is a very pleasant 64-year-old male who comes in to [facility] with cough and congestion. The patient had low-grade fevers. The patient has had symptoms for at least several days. Imaging showed the following. Chest x-ray showed no acute disease and also CT scan of the chest showed the following, it showed no evidence airspace consolidations, just shows emphysematous changes. Infectious Disease consultation is requested. He is being treated empirically for community-acquired pneumonia with Rocephin and azithromycin. Saturations are fairly stable on 2 liters at 97%. Case communicated with Dr. Johnny Alan. Discussed with RN in the [facility]. We will continue Rocephin and azithromycin for now pending workup. The patient also has been given steroids. REVIEW OF SYSTEMS: CONSTITUTIONAL: Main issue is low-grade fevers. No chills. No weight loss or night sweats mentioned. HEAD AND NECK: No headache or neck stiffness. No dysphagia or thrush. CARDIAC: No chest pain or palpitations. GASTROINTESTINAL: No nausea, vomiting, abdominal pain, or diarrhea. GENITOURINARY: No dysuria or frequency. No Rodgers. No central line. PULMONARY: He has cough and congestion. No significant sputum production dry cough. Mild shortness of breath. SKIN: No rash. EXTREMITIES: No extremity pain. NEUROLOGIC: No seizures or focal changes. Generalized fatigue may be, but no focal weakness. PAST MEDICAL HISTORY: The patient has a past medical history of diabetes and hypertension. He also has history of COPD and also looks like emphysema. ALLERGIES: No known drug allergies. No antibiotic allergies. SOCIAL HISTORY: Positive for smoking. No alcohol. No IV drug abuse. It looks he does have history of cocaine use, but most significantly has history of smoking. FAMILY HISTORY: Noncontributory. Negative for tuberculosis or cancer. MEDICATIONS: Upon reviewing the MAR, the patient is on following medications. He is on azithromycin, Rocephin heparin, potassium, aspirin, nitroglycerin, IV fluids. He has been given methylprednisolone also. Again antibiotics Rocephin and azithromycin. Outside medications noted and reconciliated. PHYSICAL EXAMINATION: VITAL SIGNS: Temperature 97.9, pulse rate is 92, respiratory rate 21, blood pressure 155/80, saturation 97% on 2 liters, T-max 100.0. GENERAL: Alert, responsive, no acute distress. He has a cough. He has a face mask for COVID-19 isolation. He is in COVID-19 isolation. HEAD AND NECK: Normocephalic. No JVD. No icterus HEART: Regular. No gallop or murmur. ABDOMEN: Soft. Positive bowel sounds. Nontender. LUNGS: Fairly clear. Maybe occasional rhonchi, but no obvious rales. SKIN: No rash or dermatitis. MUSCULOSKELETAL: No effusion. Legs without cellulitis. PERIPHERAL VASCULAR: No cyanosis or gangrene. GENITOURINARY: No Rodgers. LINE SITES: Without phlebitis. NEUROLOGIC: Intact. Nonfocal. Alert and oriented. LABORATORY DATA: Creatinine 0.9. White count 9.1, hemoglobin 10.5. Influenza screen negative. IMAGING STUDIES: Chest x-ray shows no acute disease noted and reviewed. CT scan of the chest showed no airspace disease noted and reviewed. ASSESSMENT AND PLAN: 1. The patient has possible COVID-19 infection. He has fevers and respiratory symptoms. I would continue COVID-19 isolation. Await COVID-19 testing, which was done. He also certainly has upper respiratory infection/bronchitis with COPD exacerbation. He has emphysema. Rule out underlying other viral syndrome. However, influenza screen is negative. Rule out community-acquired pneumonia. This time, I agree with Rocephin and azithromycin for Streptococcus pneumoniae coverage and atypical coverage. Continue Rocephin and azithromycin for possible community-acquired pneumonia. At this time, I do not think there is indication for hydroxychloroquine based on negative chest x-ray and CT scanning and respiratory status been stable at this time. Monitor closely. If there is any worsening respiratory status, we will consider starting hydroxychloroquine in addition to azithromycin. Monitor the patient clinically. Continue isolation pending COVID-19 testing. 2. The patient has history of emphysema and COPD. 3. Diabetes. 4. Hypertension. 5. Blood sugar and blood pressure treatment per primary care team for diabetes and hypertension. 6. No known drug allergies. 7. Social history positive for smoking. 8. Family history noncontributory. 9. MAR was noted. 10. Case was discussed with RN. 11. Case was discussed with Dr. Alan. 12. Case was discussed with RN about isolation and treatment. 13. Continue treatment per primary consultants. Phong Singleton M.D. DR: GEN JOB#: [id number] CC:
[2019-07-12] MEDS: Heparin 5000 units/ml inj SUBQ SCH (20:25)
[2019-07-13] VITALS: BP 148/79
[2019-07-13] MEDS: Potassium Chloride 40 MEQ in 1/2 NS 1000ml 1,000 ML IV SCH (03:26)
[2019-07-13 04:00] VITALS: BP 135/80
--- NOTE | 2019-07-13 04:27 | NUR ---
NURSE NOTES: Patient resting well with no complaints. Patient is cooperative and expresses his appreciation.
[2019-07-13 05:11] LABS: BASOPHILS % (AUTO) 0.4 % (0.0-2.0); HEMATOCRIT 27.9 % (42.0-52.0); HEMOGLOBIN 9.3 G/DL (14.2-18.0); LYMPHOCYTES % (AUTO) 14.9 % (20.0-45.0); MEAN CORPUSCULAR VOLUME 95 FL (80-99); MONOCYTES % (AUTO) 9.3 % (1.0-10.0); NEUTROPHILS % (AUTO) 75.4 % (45.0-75.0); PLATELET COUNT 247 K/UL (150-450); RED BLOOD COUNT 2.94 M/UL (4.70-6.10); WHITE BLOOD COUNT 13.4 K/UL (4.8-10.8)
[2019-07-13 05:23] LABS: ALANINE AMINOTRANSFERASE 74 U/L (12-78); ALBUMIN 2.2 G/DL (3.4-5.0); ALBUMIN/GLOBULIN RATIO 0.4 (1.0-2.7); ALKALINE PHOSPHATASE 333 U/L (46-116); ANION GAP 11 mmol/L (5-15); ASPARTATE AMINO TRANSFERASE 120 U/L (15-37); BILIRUBIN,TOTAL 1.2 MG/DL (0.2-1.0); BLOOD UREA NITROGEN 12 mg/dL (7-18); CALCIUM 8.4 MG/DL (8.5-10.1); CARBON DIOXIDE 20 MMOL/L (21-32); CHLORIDE 107 MMOL/L (98-107); CREATINE KINASE 227 U/L (26-308); CREATININE 0.8 MG/DL (0.55-1.30); POTASSIUM 5.5 MMOL/L (3.5-5.1); SODIUM 138 MMOL/L (136-145)
[2019-07-13 05:35] LABS: BILIRUBIN,DIRECT 0.4 MG/DL (0.0-0.3)
[2019-07-13] MEDS: cefTRIAXone 1 GM in D5W 50 ML IVPB SCH (05:42)
--- NOTE | 2019-07-13 06:54 | NUR ---
HAND-OFF: Report given to GUS Reyna.
--- NOTE | 2019-07-13 07:02 | NUR ---
NURSE NOTES: received patient report from gary cruz. patient is on bed asleep. not in acute distress.no acute events from last night. bed i slow and locked for safety. will follow plan of care.
[2019-07-13 08:00] VITALS: BP 156/89
[2019-07-13] MEDS: Aspirin Baby 81mg ORAL SCH (08:58)
[2019-07-13] MEDS: Azithromycin 250mg tab ORAL SCH (08:58)
[2019-07-13] MEDS: Heparin 5000 units/ml inj SUBQ SCH ×2 (08:59→22:09)
--- NOTE | 2019-07-13 09:00 | NUR ---
NURSE NOTES: dr lawson made aware that patients K level today is 5.5. Per dr lawson, he will check the labs. no new order recieved.
--- NOTE | 2019-07-13 10:26 | NUR ---
NURSING AUTOMATIC TRANSMISSION MECHANIC NOTE: Received phone call from RN Maribell Guthrie stating that she was having difficulty reaching Dr. Alan regarding patient's elevated Potassium. I called his office number and received a recording asking to leave a message, but system then disconnected. I called Dr. Alan on his cell phone and relayed message that Maribell needs to speak to him about lab values. Dr. Alan replied that he would look at EMR now
--- NOTE | 2019-07-13 10:43 | General Progress Note ---
Assessment/Plan Problem List: (1) Cocaine abuse ICD Codes: F14.10 - Cocaine abuse, uncomplicated SNOMED: 24891906 (2) COPD exacerbation ICD Codes: J44.1 - Chronic obstructive pulmonary disease with (acute) exacerbation SNOMED: 420659141 (3) Suspected COVID-19 virus infection ICD Codes: R68.89 - Other general symptoms and signs SNOMED: 034690926 (4) Syncopal episodes ICD Codes: R55 - Syncope and collapse SNOMED: 853856263 Assessment/Plan: poor historian, no distress, K 5.5 dc kcl, await covid 19, not clear if really had syncope, homeless SW eval Subjective Constitutional: Reports: weakness HEENT: Reports: no symptoms Cardiovascular: Reports: no symptoms Respiratory: Reports: cough Gastrointestinal/Abdominal: Reports: no symptoms Genitourinary: Reports: no symptoms Neurologic/Psychiatric: Reports: no symptoms Endocrine: Reports: no symptoms Hematologic/Lymphatic: Reports: anemia Allergies: Coded Allergies: No Known Allergies (Unverified , 08/20/16) Objective Last 24 Hour Vital Signs Date Time Temp Pulse Resp B/P (MAP) Pulse Ox O2 Delivery O2 Flow Rate FiO2 07/13/19 08:00 97.2 79 21 156/89 (111) 96 07/13/19 08:00 75 07/13/19 07:15 Nasal Cannula 2.0 07/13/19 04:00 98.6 83 18 135/80 (98) 97 07/13/19 04:00 Nasal Cannula 2.0 07/13/19 03:37 90 07/13/19 00:00 98.2 82 16 148/79 (102) 100 07/13/19 00:00 Nasal Cannula 2.0 07/12/19 23:30 111 07/12/19 20:00 98.8 88 18 153/89 (110) 98 07/12/19 20:00 84 07/12/19 20:00 Nasal Cannula 2.0 07/12/19 16:00 Nasal Cannula 2.0 07/12/19 15:20 88 07/12/19 12:00 97.9 92 21 155/80 (105) 97 07/12/19 12:00 Nasal Cannula 2.0 07/12/19 11:57 129 07/12/19 11:35 96.1 Intake and Output 07/12/19 07/13/19 19:00 07:00 Intake Total 300 ml 1322.5 ml Output Total 1300 ml Balance 300 ml 22.5 ml Intake Oral 500 ml IV Total 300 ml 822.5 ml Output Urine Total 1300 ml # Voids 3 4 # Bowel Movements 1 Laboratory Tests 07/13/19 03:35: White Blood Count 13.4H, Red Blood Count 2.94L, Hemoglobin 9.3L, Hematocrit 27.9L, Mean Corpuscular Volume 95, Mean Corpuscular Hemoglobin 31.5H, Mean Corpuscular Hemoglobin Concent 33.2, Red Cell Distribution Width 15.0H, Platelet Count 247, Mean Platelet Volume 7.5, Neutrophils (%) (Auto) 75.4H, Lymphocytes (%) (Auto) 14.9L, Monocytes (%) (Auto) 9.3, Eosinophils (%) (Auto) 0.0, Basophils (%) (Auto) 0.4, Sodium Level 138, Potassium Level 5.5#H, Chloride Level 107, Carbon Dioxide Level 20L, Anion Gap 11, Blood Urea Nitrogen 12, Creatinine 0.8, Estimat Glomerular Filtration Rate > 60, Glucose Level 114H , Calcium Level 8.4L, Total Bilirubin 1.2H, Direct Bilirubin 0.4H, Aspartate Amino Transf (AST/SGOT) 120H, Alanine Aminotransferase (ALT/SGPT) 74, Alkaline Phosphatase 333H, Total Creatine Kinase 227, Troponin I 0.004, Total Protein 7.8 , Albumin 2.2L, Globulin 5.6, Albumin/Globulin Ratio 0.4L Height (Feet): 5 Height (Inches): 10.00 Weight (Pounds): 160 General Appearance: no apparent distress, alert EENT: normal ENT inspection Neck: normal alignment Cardiovascular: normal rate Respiratory/Chest: lungs clear Abdomen: non tender Edema: no edema noted Arm (L), no edema noted Arm (R), no edema noted Leg (L), no edema noted Leg (R), no edema noted Pedal (L), no edema noted Pedal (R), no edema noted Generalized Neurologic: crystal mounter II-XII grossly normal Channing Alan MD Jul 13, 2019 10:43
--- NOTE | 2019-07-13 11:03 | NUR ---
*-* NO INSURANCE INFORMATION ON THE BAT UNABLE TO SEND CLINICALS OR REVIEWS *-*
[2019-07-13 12:00] VITALS: BP 157/98
--- NOTE | 2019-07-13 12:54 | Pulmonology Progress Note ---
Assessment/Plan Assessment/Plan Pulmonary Consultation HPI Patient is a 64-year-old male with a past medical history of COPD, Emphysema, Hypertension and Diabetes. He presents with complaint shortness for 1 to 2 months, worse in the last few days. Feverish for one day, feeling weak, malaise. Recently admitted to [facility] with syncope, patient is homeless, smoking history. Denies any nausea vomiting. Last cocaine use was a week ago. Denies any chest pain. Being r/o for Covid19 Allergies: Coded Allergies: No Known Allergies Past Medical History: COPD, Emphysema, Hypertension and Diabetes, left radius fracture All Other Systems: negative except mentioned in HPI Physical Exam Vital Signs Noted General Appearance: alert, comfortable Head: normocephalic, atraumatic Eyes: bilateral eye PERRL, bilateral eye EOMI ENT: hearing grossly normal, normal pharynx Neck: full range of motion, supple, no meningismus Respiratory: chest non-tender, decreased breath sounds, occasional rhonchi Cardiovascular: regular rate, rhythm, normal HS1/HS2, no murmur Gastrointestinal: normal bowel sounds, non tender, no mass, no organomegaly, no bruit, non-distended Musculoskeletal: back normal, normal range of motion, gait/station normal, no edema Impression: COPD exacerbation Emphysema On empiric antibiotics per ID Suspected COVID-19 virus infection - awaiting r/o No pneumonia on CT chest Hypertension Diabetes Cocaine abuseSmoking history Homeless Plan: Continue current AB Bronchodilators Solumedrol PPX O2 PRN PRACTICING UROLOGIST medications Await cultures/viral studies EKG: Rate: normal Rhythm: NSR ST Segments: other - NSST changes Chest X-Ray: no effusion, no pneumothorax, no infiltrates i CT Chest : Lungs: Exam mildly limited by patient respiratory motion. There is no evidence of airspace consolidation. No pulmonary edema. Mild emphysematous changes again seen with peripheral bulla in both upper lobes. Pleural space: Unremarkable. No pneumothorax. No significant effusion. Heart: Unremarkable. No cardiomegaly. No significant pericardial effusion. Bones/joints: No acute fracture or dislocation. Old, healed left-sided rib fractures again seen. Soft tissues: Unremarkable. Vasculature: Unremarkable. No thoracic aortic aneurysm. Lymph nodes: Unremarkable. No enlarged lymph nodes. IMPRESSION: No evidence of airspace consolidation or acute interstitial abnormality. Mild emphysematous changes. No pleural effusions or pneumothorax. Subjective ROS Limited/Unobtainable: No Constitutional: Reports: fever Respiratory: Reports: dry cough, shortness of breath Allergies: Coded Allergies: No Known Allergies (Unverified , 08/20/16) Objective Last 24 Hour Vital Signs Date Time Temp Pulse Resp B/P (MAP) Pulse Ox O2 Delivery O2 Flow Rate FiO2 07/13/19 12:00 97.3 76 20 157/98 (117) 96 07/13/19 08:00 97.2 79 21 156/89 (111) 96 07/13/19 08:00 75 07/13/19 07:15 Nasal Cannula 2.0 07/13/19 04:00 98.6 83 18 135/80 (98) 97 07/13/19 04:00 Nasal Cannula 2.0 07/13/19 03:37 90 07/13/19 00:00 98.2 82 16 148/79 (102) 100 07/13/19 00:00 Nasal Cannula 2.0 07/12/19 23:30 111 07/12/19 20:00 98.8 88 18 153/89 (110) 98 07/12/19 20:00 84 07/12/19 20:00 Nasal Cannula 2.0 07/12/19 16:00 Nasal Cannula 2.0 07/12/19 15:20 88 Intake and Output 07/12/19 07/13/19 19:00 07:00 Intake Total 300 ml 1322.5 ml Output Total 1300 ml Balance 300 ml 22.5 ml Intake Oral 500 ml IV Total 300 ml 822.5 ml Output Urine Total 1300 ml # Voids 3 4 # Bowel Movements 1 Microbiology Date/Time Source Procedure Growth Status 07/12/19 05:30 Blood Blood Culture - Preliminary NO GROWTH AFTER 24 HOURS Resulted 07/12/19 05:15 Blood Blood Culture - Preliminary NO GROWTH AFTER 24 HOURS Resulted 07/12/19 05:25 Nasal Nares - Final Complete 07/12/19 05:25 Nasal Nares - Final Complete 07/12/19 05:35 Rectum Received Laboratory Tests 07/13/19 03:35: White Blood Count 13.4H, Red Blood Count 2.94L, Hemoglobin 9.3L, Hematocrit 27.9L, Mean Corpuscular Volume 95, Mean Corpuscular Hemoglobin 31.5H, Mean Corpuscular Hemoglobin Concent 33.2, Red Cell Distribution Width 15.0H, Platelet Count 247, Mean Platelet Volume 7.5, Neutrophils (%) (Auto) 75.4H, Lymphocytes (%) (Auto) 14.9L, Monocytes (%) (Auto) 9.3, Eosinophils (%) (Auto) 0.0, Basophils (%) (Auto) 0.4, Sodium Level 138, Potassium Level 5.5#H, Chloride Level 107, Carbon Dioxide Level 20L, Anion Gap 11, Blood Urea Nitrogen 12, Creatinine 0.8, Estimat Glomerular Filtration Rate > 60, Glucose Level 114H , Calcium Level 8.4L, Total Bilirubin 1.2H, Direct Bilirubin 0.4H, Aspartate Amino Transf (AST/SGOT) 120H, Alanine Aminotransferase (ALT/SGPT) 74, Alkaline Phosphatase 333H, Total Creatine Kinase 227, Troponin I 0.004, Total Protein 7.8 , Albumin 2.2L, Globulin 5.6, Albumin/Globulin Ratio 0.4L Current Medications Medications (Trade) Dose Ordered Sig/Pop Route PRN Reason Start Time Stop Time Status Last Admin Dose Admin Acetaminophen (Tylenol) 650 mg Q4H PRN ORAL Mild Pain or Fever 07/12/19 11:45 08/11/19 11:44 Aspirin (ASA) 81 mg DAILY ORAL 07/12/19 13:00 08/26/19 12:59 07/13/19 08:58 Azithromycin (Zithromax) 250 mg DAILY ORAL 07/13/19 09:00 07/20/19 08:59 07/13/19 08:58 Ceftriaxone Sodium 1 gm/ Dextrose 50 ml @ 100 mls/hr Q24H IVPB 07/13/19 06:00 07/20/19 05:59 07/13/19 05:42 Dextrose (Dextrose 50%) 25 ml Q30M PRN IV Hypoglycemia 07/12/19 13:00 10/10/19 12:59 Dextrose (Dextrose 50%) 50 ml Q30M PRN IV Hypoglycemia 07/12/19 13:00 10/10/19 12:59 Heparin Sodium (Porcine) (Heparin 5000 units/ml) 5,000 units EVERY 12 HOURS SUBQ 07/12/19 21:00 08/26/19 20:59 07/13/19 08:59 Nitroglycerin (Ntg) 0.4 mg Q5M PRN SL Prn Chest Pain 07/12/19 13:00 08/11/19 12:59 Sodium Chloride 1,000 ml @ 100 mls/hr Q10H IV 07/13/19 10:45 08/12/19 10:44 07/13/19 12:36 Gerry Suarez MD Jul 13, 2019 12:54
--- NOTE | 2019-07-13 13:15 | Diagnostic Imaging Report ---
Indication: Dyspnea Comparison: 07/12/2019 A single view chest radiograph was obtained. Findings: No definite infiltrate or pulmonary vascular congestion identified. The heart is enlarged. The aorta is mildly enlarged consistent with atherosclerotic vascular disease. The bones are osteopenic. There are thoracic vertebral enthesophytes at multiple levels. Impression: No acute disease
--- NOTE | 2019-07-13 13:20 | NUR ---
Social Work This Sw received a consult due to homelessness. Patient is in isolation, coughing. This sW spoke with patient via intercom into his room, who admits he has been living in a car with friend, Martin "[place]." Patient admitted to substance abuse (Cocaine), while denied any mental health concerns (denied SI/HI, depression or anxiety). This SW provided safety education regarding living with friend in car, regarding any contagious illness.' Patient explains he has some other friends who are helping him with other housing options, but uncertain when this will be. This SW educated patient regarding applying for low income housing, along with providing additional winter longterm, Board/Care placement, Transitional Housing and Share Housing information. Patient explains he receives 800-900 dollars per month from [employer] and planning to apply for low income housing. This SW also educated the health risks involved regarding substance abuse and encouraged to quit using (substance abuse resources provided). Clothing provided (pants, t-shirt and light sweatshirt). Patient was unable to identify definite plans for discharge location at this time, stating the possibility to discharge back to the car with his friend. Nursing to assist with transportation, when medically cleared. Homeless Discharge Planning checklist to completed with patient, prior to discharge. No other needs/concern present at this time.
--- NOTE | 2019-07-13 14:13 | NUR ---
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 100.1 HR 100 RR 22 B/P 136/72 K 3.3 AST 156 ALT 89 ALK PHOS 416 COVID-19 PENDING UA+ PROTEIN,BLOOD,UROBILINOGEN,RBC,WBC,BACTERIA,MUCUS URINE TOX+ COCAINE CXR= NEGATIVE CHEST CT= Mild emphysematous changes. IS: SOLU MEDROL IV AZITHROMYCIN IV TYLENOL ROCEPHIN IV DROPLET ISOLATION ADMITTED TO STEP DOWN STEP DOWN STATUS DCP PENDING HOSPITAL STAY
[2019-07-13 16:00] VITALS: BP 145/73
--- NOTE | 2019-07-13 19:40 | NUR ---
NURSE NOTES: Received pt from GUS Reyna. will continue plan of care.
[2019-07-13 20:00] VITALS: BP 157/108
--- NOTE | 2019-07-13 20:30 | NUR ---
NURSE NOTES: pt observed resting in bed, AO X4, denies pain at this time. pt is on room air, saturation: 100%; no s/sx of respiratory distress noted. air sampling and monitoring shows SR at this time; no acute cardiac distress noted. LH 22 g IV site is patent and intact, running 1/2 NS at 100 cc/hr. skin alterations noted. urinal at bedside. bed in lowest position and locked, siderails up X3, call light within reach. will continue to monitor.
--- NOTE | 2019-07-13 22:15 | NUR ---
NURSE NOTES: pt c/o nausea and vomiting; BP noted to be elevated at 157/108. will inform Dr. Alan.
--- NOTE | 2019-07-13 22:27 | NUR ---
NURSE NOTES: called and spoke with Dr. Alan regarding pt's BP of 157/108 and pt's complaint of upset stomach and nausea. per Dr. Alan, not treating BP at this time. order given for Tiny. will carry out new orders.
[2019-07-14] VITALS: BP 141/92
[2019-07-14 04:00] VITALS: BP 149/96
[2019-07-14] MEDS: cefTRIAXone 1 GM in D5W 50 ML IVPB SCH (05:31)
[2019-07-14 06:36] LABS: BASOPHILS % (AUTO) 0.8 % (0.0-2.0); EOSINOPHILS % (AUTO) 1.1 % (0.0-3.0); HEMOGLOBIN 11.7 G/DL (14.2-18.0); LYMPHOCYTES % (AUTO) 22.3 % (20.0-45.0); MEAN CORPUSCULAR VOLUME 94 FL (80-99); MONOCYTES % (AUTO) 8.6 % (1.0-10.0); NEUTROPHILS % (AUTO) 67.2 % (45.0-75.0); PLATELET COUNT 275 K/UL (150-450); RED BLOOD COUNT 3.83 M/UL (4.70-6.10); RED CELL DISTRIBUTION WIDTH 14.6 % (11.6-14.8); WHITE BLOOD COUNT 9.5 K/UL (4.8-10.8)
[2019-07-14 06:48] LABS: ALANINE AMINOTRANSFERASE 93 U/L (12-78); ALBUMIN 2.3 G/DL (3.4-5.0); ALBUMIN/GLOBULIN RATIO 0.4 (1.0-2.7); ALKALINE PHOSPHATASE 373 U/L (46-116); ANION GAP 13 mmol/L (5-15); ASPARTATE AMINO TRANSFERASE 169 U/L (15-37); BILIRUBIN,TOTAL 1.8 MG/DL (0.2-1.0); BLOOD UREA NITROGEN 10 mg/dL (7-18); CALCIUM 8.4 MG/DL (8.5-10.1); CARBON DIOXIDE 21 MMOL/L (21-32); CHLORIDE 103 MMOL/L (98-107); POTASSIUM 3.9 MMOL/L (3.5-5.1); SODIUM 137 MMOL/L (136-145)
[2019-07-14 06:53] LABS: BILIRUBIN,DIRECT 1.3 MG/DL (0.0-0.3)
[2019-07-14 07:22] LABS: AMMONIA 63 umol/L (11-32)
--- NOTE | 2019-07-14 07:43 | NUR ---
HAND-OFF: Report given to GUS Del Toro. endorsed plan of care.
--- NOTE | 2019-07-14 08:00 | NUR ---
NURSE NOTES: Report received from Marleny WEBER. Patient is observed in bed, awake, alert, oriented, and able to make needs known. Respiratory even and unlabored. Denies pain at this time. Bed is in lowest position with side rails up x2 and brakes are engaged. Encouraged patient to use call light when in need of assistance, pt verbalized understanding. Will continue to monitor.
[2019-07-14 08:20] VITALS: BP 148/82
[2019-07-14] MEDS: Aspirin Baby 81mg ORAL SCH (08:34)
[2019-07-14] MEDS: Azithromycin 250mg tab ORAL SCH (08:34)
[2019-07-14] MEDS: Heparin 5000 units/ml inj SUBQ SCH (08:37)
--- NOTE | 2019-07-14 08:48 | General Progress Note ---
Assessment/Plan Problem List: (1) Cocaine abuse ICD Codes: F14.10 - Cocaine abuse, uncomplicated SNOMED: 86656224 (2) COPD exacerbation ICD Codes: J44.1 - Chronic obstructive pulmonary disease with (acute) exacerbation SNOMED: 768257485 (3) Suspected COVID-19 virus infection ICD Codes: R68.89 - Other general symptoms and signs SNOMED: 026274602 (4) Syncopal episodes ICD Codes: R55 - Syncope and collapse SNOMED: 453353003 Assessment/Plan: poor historian, no distress, K 5.5 dc kcl, await covid 19, negative, not clear if really had syncope, homeless SW eval elevated lft may be from drugs or etoh, no distress, dc home after SW eval Subjective Constitutional: Reports: weakness HEENT: Reports: no symptoms Cardiovascular: Reports: no symptoms Respiratory: Reports: cough Gastrointestinal/Abdominal: Reports: no symptoms Genitourinary: Reports: no symptoms Neurologic/Psychiatric: Reports: no symptoms Endocrine: Reports: no symptoms Allergies: Coded Allergies: No Known Allergies (Unverified , 08/20/16) Objective Last 24 Hour Vital Signs Date Time Temp Pulse Resp B/P (MAP) Pulse Ox O2 Delivery O2 Flow Rate FiO2 07/14/19 08:20 98.0 77 22 148/82 (104) 97 07/14/19 07:46 Nasal Cannula 2.0 07/14/19 04:00 98.3 76 22 149/96 (113) 97 07/14/19 04:00 Nasal Cannula 2.0 07/14/19 04:00 78 07/14/19 00:00 99.2 85 22 141/92 (108) 97 07/14/19 00:00 Nasal Cannula 2.0 07/14/19 00:00 81 07/13/19 20:00 Nasal Cannula 2.0 07/13/19 20:00 97.7 77 22 157/108 (124) 100 07/13/19 20:00 74 07/13/19 16:00 97.6 87 19 145/73 (97) 95 07/13/19 16:00 Room Air 07/13/19 15:12 74 07/13/19 12:00 Nasal Cannula 2.0 07/13/19 12:00 97.3 76 20 157/98 (117) 96 07/13/19 11:38 70 Intake and Output 07/13/19 07/14/19 19:00 07:00 Intake Total 1190 ml 1244.99 ml Output Total 1200 ml 1150 ml Balance -10 ml 94.99 ml Intake Oral 550 ml 60 ml IV Total 640 ml 1184.99 ml Output Urine Total 1200 ml 1150 ml # Voids 4 Laboratory Tests 07/14/19 05:40: White Blood Count 9.5, Red Blood Count 3.83L, Hemoglobin 11.7L, Hematocrit 36.0L , Mean Corpuscular Volume 94, Mean Corpuscular Hemoglobin 30.7, Mean Corpuscular Hemoglobin Concent 32.6, Red Cell Distribution Width 14.6, Platelet Count 275, Mean Platelet Volume 7.2, Neutrophils (%) (Auto) 67.2, Lymphocytes (% ) (Auto) 22.3, Monocytes (%) (Auto) 8.6, Eosinophils (%) (Auto) 1.1, Basophils ( %) (Auto) 0.8, Sodium Level 137, Potassium Level 3.9, Chloride Level 103, Carbon Dioxide Level 21, Anion Gap 13, Blood Urea Nitrogen 10, Creatinine 1.0, Estimat Glomerular Filtration Rate > 60, Glucose Level 96, Calcium Level 8.4L, Total Bilirubin 1.8H, Direct Bilirubin 1.3H, Aspartate Amino Transf (AST/SGOT) 169H, Alanine Aminotransferase (ALT/SGPT) 93H, Alkaline Phosphatase 373H, Ammonia 63H, Total Protein 8.2, Albumin 2.3L, Globulin 5.9, Albumin/Globulin Ratio 0.4L Height (Feet): 5 Height (Inches): 10.00 Weight (Pounds): 160 General Appearance: no apparent distress, alert EENT: normal ENT inspection Neck: normal alignment Cardiovascular: normal rate Respiratory/Chest: lungs clear Abdomen: non tender, soft Edema: no edema noted Arm (L), no edema noted Arm (R), no edema noted Leg (L), no edema noted Leg (R), no edema noted Pedal (L), no edema noted Pedal (R), no edema noted Generalized Neurologic: turbinated bone grinder II-XII grossly normal Channing Alan MD Jul 14, 2019 08:48
--- NOTE | 2019-07-14 10:54 | NUR ---
CORPORATION OFFICER NOTE SW notified this pt will be discharged today. SW met w/ pt and clarified DC plan. PT reports he plans to go to his car but he does not know where his car is at. Per SW note, pt reported SW that his car is located at [facility] and [facility]. Pt plans to call his uncle w/o name given, if he can p/u pt. Pt declined this SW to contact his uncle for DC planning. Pt reports he will attempt to call him by self. Pt reports he received community resource and the emergency group home list. Pt has appropriate clothing for the whether. Pt is to be discharged to his preferred location. Transportation pending P/U vs. Bus pass. EMILIA relayed all information to assigned RN.
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
--- NOTE | 2019-07-14 13:02 | NUR ---
NURSE NOTES: Charge nurse and primary RN contacted family member multiple times, however, no answer. Patient states, "He is probably on lunch. I can go home by myself." Bus pass was provided for the patient. Belongings are given back to the patient. IV catheter is removed, skin is asymptomatic, no hematoma noted. funnel setter removed and returned to the polysomnograph tech. Patient is stable. Patient verbalized understanding regarding discharge instructions.
--- NOTE | 2019-07-14 14:34 | NUR ---
*-* INSURANCE *-* ALL CLINICALS AND REVIEWS HAVE BEEN FAXED TO: [facility] P:[phone] F:[phone] (FAX ALL CLINICALS HERE AND TO [facility] [phone])
--- NOTE | 2019-07-15 13:21 | NUR ---
*-* INSURANCE *-* UNABLE TO SEND DISCHARGE SUMMARY NO IN THE SYSTEM YET
--- NOTE | 2019-07-15 14:16 | Discharge Summary ---
Discharge Summary Discharge Summary _ DATE OF ADMISSION: 07/12/2019 DATE OF DISCHARGE: 07/14/2019 DISCHARGED BY: Dr. Alan REASON FOR ADMISSION: 64 years old male, homeless, with past medical history of hypertension, COPD, diabetes mellitus, presented with low-grade fever , cough and congestion. Patient was suspected of coronavirus infection. Laboratory work-up revealed no leukocytosis, hemoglobin 10.5, hematocrit 31.9. Troponin negative. EKG revealed sinus rhythm , no acute ischemic changes. Potassium 3.3. Stable renal parameters. AST 166, ALT 89. Urinalysis revealed +2 protein, no evidence of urinary tract infection. Urine toxicology screen was positive for cocaine. Chest x-ray demonstrated no definite acute cardiopulmonary abnormality. CT of the chest showed no evidence of airspace consolidation. Mild emphysematous changes. No pleural effusion or pneumothorax. Patient subsequently admitted for further management. CONSULTANTS: pulmonary Dr. Suarez ID specialist Dr. Singleton [facility] COURSE: Patient admitted and started on IV hydration. Patient received IV Solu-Medrol in emergency department. Supplemental oxygen provided and titrated to keep pulse oximetry above 92%. Pulmonary toilet with bronchodilator provided. Patient started on empiric antibiotic as per ID specialist recommendation. Blood cultures were negative. Influenza screen was negative. Coronavirus test came back negative. DVT prophylaxis provided. Antiplatelet therapy with aspirin continued. Follow-up chest x-ray revealed no acute cardiopulmonary pathology. Renal parameters and electrolytes were closely monitored. Electrolytes corrected as needed. Elevated LFTs possibly due to drug abuse. It was unclear if patient had a syncopal episode and he claimed.. Patient clinically stabilized. Low-grade fever resolved. Patient was ready for discharge home. The treating physician and consultants had assessed and agreed that patient was medically stable for discharge to an outpatient disposition. FINAL DIAGNOSES: COPD exacerbation Emphysema Suspected COVID 19 -ruled out Viral syndrome Hypertension Diabetes Cocaine abuse Smoking history Homeless Syncopal episode DISCHARGE MEDICATIONS: See Medication Reconciliation list. DISCHARGE INSTRUCTIONS: Patient was discharged to outpatient position. Follow-up with a primary care provider in 1 week. Patient was counseled on abstinence from illicit street drugs and smoking cessation. I have been assigned to dictate discharge summary for this account. I was not involved in the patient's management. Nancy Freitas NP Jul 15, 2019 14:16
--- NOTE | 2019-07-16 10:58 | NUR ---
*-* INSURANCE *-* DISCHARGE SUMMARY HAS BEEN FAXED TO: [facility] P:[phone] F:[phone] (FAX ALL CLINICALS HERE AND TO [facility] [phone])
== END 2019-07-14 13:29 | disposition home or self-care (01) | DRG 140 ==
LOC: EDBD 05:05 → EMR 05:25 → 2W 08:34 → EDBEDREQ 08:39
DX: J44.1 Chronic obstructive pulmonary disease with (acute) exacerbation (principal); B34.9 Viral infection, unspecified; E11.9 Type 2 diabetes mellitus without complications; I10 Essential (primary) hypertension; F17.200 Nicotine dependence, unspecified, uncomplicated; F14.10 Cocaine abuse, uncomplicated; Z59.0 Homelessness; R55 Syncope and collapse; Z03.818 Encounter for observation for suspected exposure to other biological agents ruled out
CPT/HCPCS: 36415; 71045; 71250; 80053; 80307; 81003; 82140; 82248; 82550; 82553; 83605; 83880; 84484; 85025; 85610; 85730; 86710; 87040; 87081; 87635; 93005; 96365; 96368; 96375; 99285

== ENCOUNTER 2019-09-10 12:07 | Inpatient (IN) | payer MEDICARE, OTHER ==
[~2019-09-10] VITALS: Ht 165.1 cm; Wt 63.5 kg
--- NOTE | 2019-09-10 12:10 | NUR ---
ED Nurse Note: Patient was BIBA RA 68 due to generalized weakness and blurred vision. [place]. Patient stated that he's vomiting blood since last night. Patient is AAOx4.
--- NOTE | 2019-09-10 12:10 | NUR ---
ED Nurse Note: ERMD at bedside
[2019-09-10] MEDS ORDERED: Folic Acid 1 MG, Magnesium Sulfate 2,000 MG, Multivitamin - 12 Injection 10 ML, Thiamin... IV ONE ×5 (12:15)
[2019-09-10] MEDS ORDERED: Pantoprazole Inj IVP ONE (12:15)
[2019-09-10] MEDS ORDERED: Pantoprazole 80 MG in NS 250 ML IV ONE (12:15)
--- NOTE | 2019-09-10 12:23 | Emergency Room Report ---
History of Present Illness General Chief Complaint: Gastrointestinal Bleed Source: Patient, EMS Present Illness HPI Patient is a 64-year-old male past medical history of diabetes and alcohol abuse who presents to the ER after vomiting blood. Patient states that he started vomiting blood last night. He complains of generalized weakness. He states that he might of passed out. He complains of blurry vision. Patient denies any chest pain or shortness of breath. Patient complains of some upper abdominal pain. Patient denies any diarrhea or constipation. Patient was brought in by EMS. Patient is a transient. 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 Patient History Reviewed Nursing Documentation: PMH: Agreed; PSxH: Agreed Nursing Documentation-PMH Hx Cardiac Problems: Yes - htn Hx Hypertension: Yes Hx COPD: Yes Hx Diabetes: Yes Hx Neurological Problems: No Review of Systems All Other Systems: negative except mentioned in HPI Physical Exam Vital Signs Date Time Temp Pulse Resp B/P (MAP) Pulse Ox O2 Delivery O2 Flow Rate FiO2 09/10/19 12:03 98.8 100 20 112/69 (83) 100 Room Air Sp02 EP Interpretation: reviewed, normal General Appearance: alert, GCS 15, non-toxic, other - Poorly groomed dry blood on his shirt, Chronically Ill Head: normocephalic, atraumatic Eyes: bilateral eye normal inspection, bilateral eye PERRL ENT: dry mucus membranes Neck: full range of motion, supple/symm/no masses Respiratory: chest non-tender, speaking full sentences Cardiovascular #1: tachycardia Cardiovascular #2: 2+ carotid (R), 2+ carotid (L) Gastrointestinal: other - Epigastric and right upper quadrant tenderness to palpation with no guarding or rebound Rectal: deferred Genitourinary: no CVA tenderness Musculoskeletal: normal range of motion Neurologic: alert, motor strength/tone normal, oriented x3, sensory intact, responsive, speech normal Psychiatric: no suicidal/homicidal ideation, anxious Skin: no rash Lymphatic: no adenopathy Procedures Critical Care Time Critical Care Time Total critical care time: Approximately 75 minutes. Due to a high probability of clinically significant, life threatening deterioration, the patient required my highest level of preparedness to intervene emergently and I personally spent this critical care time directly and personally managing the patient. This critical care time included obtaining a history; examining the patient; pulse oximetry; ordering and review of studies; arranging urgent treatment with development of a management plan; evaluation of patient's response to treatment ; frequent reassessment; and, discussions with other providers.This critical care time was performed to assess and manage the high probability of imminent, life-threatening deterioration that could result in multi-organ failure. It was exclusive of separately billable procedures and treating other patients and teaching time. Please see MDM section and the rest of the note for further information on patient assessment and treatment. Medical Decision Making Diagnostic Impression: Primary Impression: Gastrointestinal hemorrhage Additional Impressions: Anemia Sepsis Transaminitis ER Course Patient with history of alcohol abuse and upper GI bleed. Patient pancultured. Patient has sepsis. Patient started on Protonix 80 mg IV push and started on drip at 8 mg/h. Patient also started on octreotide 50 mcg IV push and 50/h. Patient found to be anemic. 1 unit of packed red blood cells has been given. Patient also given 2 g of cefepime IV. Patient given 30 cc/kg of IV fluids. Patient also started on banana bag due to his history of alcoholism. Laboratory Tests Test 09/10/19 12:37 09/10/19 13:45 White Blood Count 11.8 K/UL (4.8-10.8) H Red Blood Count 2.35 M/UL (4.70-6.10) L Hemoglobin 7.5 G/DL (14.2-18.0) L Hematocrit 22.7 % (42.0-52.0) L Mean Corpuscular Volume 97 FL (80-99) Mean Corpuscular Hemoglobin 31.8 PG (27.0-31.0) H Mean Corpuscular Hemoglobin Concent 32.9 G/DL (32.0-36.0) Red Cell Distribution Width 18.3 % (11.6-14.8) H Platelet Count 201 K/UL (150-450) Mean Platelet Volume 6.8 FL (6.5-10.1) Neutrophils (%) (Auto) % (45.0-75.0) Lymphocytes (%) (Auto) % (20.0-45.0) Monocytes (%) (Auto) % (1.0-10.0) Eosinophils (%) (Auto) % (0.0-3.0) Basophils (%) (Auto) % (0.0-2.0) Differential Total Cells Counted 100 Neutrophils % (Manual) 76 % (45-75) H Lymphocytes % (Manual) 17 % (20-45) L Monocytes % (Manual) 6 % (1-10) Eosinophils % (Manual) 1 % (0-3) Basophils % (Manual) 0 % (0-2) Band Neutrophils 0 % (0-8) Nucleated Red Blood Cells 3 /100 WBC Platelet Estimate Adequate Platelet Morphology Normal Hypochromasia 3+ Anisocytosis 2+ Prothrombin Time 15.2 SEC (9.30-11.50) H Prothrombin Time INR 1.4 (0.9-1.1) H Activated Partial Thromboplast Time 25 SEC (23-33) Sodium Level 144 MMOL/L (136-145) Potassium Level 3.8 MMOL/L (3.5-5.1) Chloride Level 111 MMOL/L (98-107) H Carbon Dioxide Level 21 MMOL/L (21-32) Anion Gap 12 mmol/L (5-15) Blood Urea Nitrogen 30 mg/dL (7-18) H Creatinine 1.2 MG/DL (0.55-1.30) Estimated Glomerular Filtration Rate > 60 mL/min (>60) Glucose Level 106 MG/DL (74-106) Lactic Acid Level 2.50 mmol/L (0.4-2.0) H Pending Calcium Level 8.1 MG/DL (8.5-10.1) L Phosphorus Level 3.6 MG/DL (2.5-4.9) Magnesium Level 2.0 MG/DL (1.8-2.4) Total Bilirubin 3.3 MG/DL (0.2-1.0) H Direct Bilirubin 2.0 MG/DL (0.0-0.3) H Aspartate Amino Transferase (AST) 110 U/L (15-37) H Alanine Aminotransferase (ALT) 60 U/L (12-78) Alkaline Phosphatase 234 U/L (46-116) H Total Creatine Kinase 120 U/L (26-308) Troponin I 0.007 ng/mL (0.000-0.056) Total Protein 7.0 G/DL (6.4-8.2) Albumin 2.3 G/DL (3.4-5.0) L Globulin 4.7 g/dL Albumin/Globulin Ratio 0.5 (1.0-2.7) L Lipase 222 U/L (73-393) Serum Alcohol < 3 mg/dL EKG Diagnostic Results EKG Time: 12:32 EP Interpretation: mD Tuyet Rate: normal Rhythm: NSR ST Segments: no acute changes ASA given to the pt in ED: No Chest X-Ray Diagnostic Results Chest X-Ray Diagnostic Results : Chest X-Ray Ordered: Yes # of Views/Limited/Complete: 1 View Indication: Other - vomiting EP Interpretation: Yes Interpretation: no consolidation, no effusion, no pneumothorax, no acute cardiopulmonary disease Impression: No acute disease Electronically Signed by: MD Shena Benz Last Vital Signs Date Time Temp Pulse Resp B/P (MAP) Pulse Ox O2 Delivery O2 Flow Rate FiO2 09/10/19 12:03 98.8 100 20 112/69 (83) 100 Room Air Disposition: ADMITTED INPATIENT Condition: Critical Physician Consult: Dr. Yasmany Tran No Active Prescriptions or Reported Meds Referrals: NOT CHOSEN IPA/,REFERRING (PCP) Evaluation Current Stage of Sepsis: Severe Sepsis Possible Source: GI Tract/Intra-Abdominal Problems: (1) Gastrointestinal bleeding ICD Codes: K92.2 - Gastrointestinal hemorrhage, unspecified SNOMED: 26037501 (2) COPD (chronic obstructive pulmonary disease) ICD Codes: J44.9 - Chronic obstructive pulmonary disease, unspecified SNOMED: 23013164 (3) Anemia ICD Codes: D64.9 - Anemia, unspecified SNOMED: 419343081 (4) ETOH abuse ICD Codes: F10.10 - Alcohol abuse, uncomplicated SNOMED: 96094204 (5) Diabetes mellitus ICD Codes: E11.9 - Type 2 diabetes mellitus without complications SNOMED: 05992075 (6) Hepatitis C ICD Codes: B19.20 - Unspecified viral hepatitis C without hepatic coma SNOMED: 31646541 Focused Exam Allergies: Coded Allergies: No Known Allergies (Unverified , 08/20/16) Date Exam Occurred: September 10, 2019 Time Exam Occurred: 13:00 Laboratory Studies Laboratory Tests Test 09/10/19 15:25 09/10/19 16:12 09/11/19 07:25 Venous Blood pH 7.474 Venous Blood Partial Pressure CO2 25.7 Venous Blood Partial Pressure O2 202.1 Venous Blood HCO3 18.5 Venous Blood Total Carbon Dioxide 25.7 Venous Blood Base Excess -4.7 Venous Blood Carboxyhemoglobin 3.3 % (0.5-1.5) H Methemoglobin 1.3 Urine Color Pale yellow Urine Appearance Slightly cloudy Urine pH 7 (4.5-8.0) Urine Specific Crockett 1.010 (1.005-1.035) Urine Protein Negative (NEGATIVE) Urine Glucose (UA) Negative (NEGATIVE) Urine Ketones Negative (NEGATIVE) Urine Blood 2+ (NEGATIVE) H Urine Nitrite Negative (NEGATIVE) Urine Bilirubin Negative (NEGATIVE) Urine Urobilinogen Normal MG/DL (0.0-1.0) Urine Leukocyte Esterase 3+ (NEGATIVE) H Urine RBC 2-4 /HPF (0 - 0) H Urine WBC 2-4 /HPF (0 - 0) Urine Squamous Epithelial Cells None /LPF (NONE/OCC) Urine Bacteria Few /HPF (NONE) Urine Opiates Screen Negative (NEGATIVE) Urine Barbiturates Screen Negative (NEGATIVE) Phencyclidine (PCP) Screen Negative (NEGATIVE) Urine Amphetamines Screen Negative (NEGATIVE) Urine Benzodiazepines Screen Negative (NEGATIVE) Urine Cocaine Screen Positive (NEGATIVE) H Urine Marijuana (THC) Screen Negative (NEGATIVE) White Blood Count 9.1 K/UL (4.8-10.8) Red Blood Count 2.37 M/UL (4.70-6.10) L Hemoglobin 7.6 G/DL (14.2-18.0) L Hematocrit 22.2 % (42.0-52.0) L Mean Corpuscular Volume 94 FL (80-99) Mean Corpuscular Hemoglobin 31.9 PG (27.0-31.0) H Mean Corpuscular Hemoglobin Concent 34.1 G/DL (32.0-36.0) Red Cell Distribution Width 17.5 % (11.6-14.8) H Platelet Count 168 K/UL (150-450) Mean Platelet Volume 6.4 FL (6.5-10.1) L Neutrophils (%) (Auto) % (45.0-75.0) Lymphocytes (%) (Auto) % (20.0-45.0) Monocytes (%) (Auto) % (1.0-10.0) Eosinophils (%) (Auto) % (0.0-3.0) Basophils (%) (Auto) % (0.0-2.0) Differential Total Cells Counted 100 Neutrophils % (Manual) 78 % (45-75) H Lymphocytes % (Manual) 9 % (20-45) L Monocytes % (Manual) 11 % (1-10) H Eosinophils % (Manual) 2 % (0-3) Basophils % (Manual) 0 % (0-2) Band Neutrophils 0 % (0-8) Platelet Estimate Adequate Platelet Morphology Normal Anisocytosis 1+ Erythrocyte Sedimentation Rate 50 MM/HR (0-20) H Reticulocyte Count 3.5 % (0.5-2.0) H Sodium Level 142 MMOL/L (136-145) Potassium Level 3.5 MMOL/L (3.5-5.1) Chloride Level 112 MMOL/L (98-107) H Carbon Dioxide Level 22 MMOL/L (21-32) Anion Gap 8 mmol/L (5-15) Blood Urea Nitrogen 23 mg/dL (7-18) H Creatinine 1.2 MG/DL (0.55-1.30) Estimat Glomerular Filtration Rate > 60 mL/min (>60) Glucose Level 85 MG/DL (74-106) Calcium Level 7.4 MG/DL (8.5-10.1) L Iron Level 27 ug/dL (50-175) L Total Iron Binding Capacity 275 ug/dL (250-450) Percent Iron Saturation 10 % (15-50) L Unsaturated Iron Binding 248 ug/dL (112-346) Lactate Dehydrogenase 220 U/L (81-234) Carcinoembryonic Antigen Pending Vitamin B12 Level 572 PG/ML (193-986) Folate 24.7 NG/ML (8.6-58.9) Vital Signs Last 24 Hour Vital Signs Date Time Temp Pulse Resp B/P (MAP) Pulse Ox O2 Delivery O2 Flow Rate FiO2 09/11/19 12:00 Room Air 09/11/19 12:00 97.1 74 16 133/84 (100) 98 09/11/19 11:32 70 09/11/19 10:50 97.4 80 19 132/70 100 Room Air 09/11/19 10:45 81 20 128/76 98 Room Air 09/11/19 10:41 97.6 87 18 132/82 100 Nasal Cannula 3 09/11/19 08:00 68 09/11/19 08:00 98.1 79 16 127/83 (98) 98 09/11/19 08:00 97.1 78 16 129/91 (104) 97 09/11/19 08:00 Room Air 09/11/19 04:00 Room Air 09/11/19 04:00 75 09/11/19 04:00 98.0 84 17 124/74 (91) 98 09/11/19 00:00 81 09/11/19 00:00 Room Air 09/11/19 00:00 98.2 84 17 133/64 (87) 98 09/10/19 20:00 98.4 84 17 141/75 (97) 97 09/10/19 20:00 Room Air 09/10/19 19:43 Room Air 09/10/19 19:22 90 09/10/19 16:05 97.8 89 17 09/10/19 15:05 98.1 86 21 09/10/19 15:00 98.1 90 20 09/10/19 14:55 97.9 95 21 Respiratory Exam: Clear Cardiovascular Exam: RRR Capillary Refill: Less Than 2 Seconds Peripheral Pulse: Strong Shena Benz M.D. September 10, 2019 12:23
[2019-09-10] MEDS ORDERED: SandoSTATIN 50mcg Inj IV ONE (12:30)
[2019-09-10] MEDS ORDERED: SandoSTATIN 50mcg Inj IVP ONE (12:30)
--- NOTE | 2019-09-10 12:30 | NUR ---
ED Nurse Note: Patient to CT Scan
--- NOTE | 2019-09-10 12:45 | NUR ---
ED Nurse Note: Patient returned from CT
--- NOTE | 2019-09-10 13:15 | NUR ---
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
[2019-09-10 13:26] VITALS: BP 112/69
[2019-09-10] MEDS ORDERED: Thiamine HCl 100 MG in D5W 110 ML IVPB SCH (13:30)
[2019-09-10] MEDS ORDERED: Folic Acid 1 MG, Magnesium Sulfate 2,000 MG, Multivitamin - 12 Injection 10 ML in Sodiu... IV SCH (13:30)
[2019-09-10 13:31] LABS: ANION GAP 12 mmol/L (5-15); BLOOD UREA NITROGEN 30 mg/dL (7-18); CALCIUM 8.1 MG/DL (8.5-10.1); CARBON DIOXIDE 21 MMOL/L (21-32); CHLORIDE 111 MMOL/L (98-107); CREATININE 1.2 MG/DL (0.55-1.30); POTASSIUM 3.8 MMOL/L (3.5-5.1); SODIUM 144 MMOL/L (136-145)
--- NOTE | 2019-09-10 13:35 | Diagnostic Imaging Report ---
EXAM: CT CT Head no Contrast INDICATION: Altered mental status. Blurred vision. Syncope. TECHNIQUE: Axial images of the brain were obtained with subsequent sagittal and coronal reformats. All CT scans at this facility are performed using dose modulation techniques as appropriate to a performed exam including the following: automated exposure control with adjustment of the mA and/or kV according to patient size. COMPARISON STUDY: None. RADIATION DOSE: CTDIvol: 53.4 mGy DLP: 1018.8 mGy-cm Dose information generated by the CT scanner is available in PACS. FINDINGS: There is age-related volume loss. There is no acute large territory cortical infarct, hemorrhage, mass effect or shift. Ventricles and cisterns as well as brainstem and posterior fossa appear unremarkable. The sellar region is normal. Sinuses, mastoid air cells and bony calvarium appear intact. Old fracture of the medial wall right orbit noted. IMPRESSION: Age related senescent changes. No acute intracranial abnormality. Old fracture medial wall right orbit.
[2019-09-10 13:38] LABS: HEMATOCRIT 22.7 % (42.0-52.0); HEMOGLOBIN 7.5 G/DL (14.2-18.0); MEAN CORPUSCULAR VOLUME 97 FL (80-99); PLATELET COUNT 201 K/UL (150-450); RED BLOOD COUNT 2.35 M/UL (4.70-6.10); RED CELL DISTRIBUTION WIDTH 18.3 % (11.6-14.8); WHITE BLOOD COUNT 11.8 K/UL (4.8-10.8)
--- NOTE | 2019-09-10 13:40 | Diagnostic Imaging Report ---
EXAM: CT CT Abdomen Pelvis WO Contrast INDICATION: Abdominal pain. Vomiting blood. COMPARISON: 11/03/2017 TECHNIQUE: Axial images were obtained through the abdomen pelvis without intravenous contrast. Sagittal and coronal reformats are generated. All CT scans at this facility are performed using dose modulation techniques as appropriate to a performed exam including the following: automated exposure control with adjustment of the mA and/or kV according to patient size. RADIATION DOSE: CTDIvol: 3.4 mGy DLP: 176.2 mGy-cm Dose information generated by the CT scanner is available in PACS. FINDINGS: The lung bases are clear. There is a cirrhotic liver with nodular hepatic contour. No discrete space-occupying lesion identified on this nonenhanced scan. The spleen is not enlarged. Gallbladder is without sludge or stone and there is no wall thickening. The pancreas is unremarkable. Adrenals are normal in morphology. The kidneys are normal in size, shape and axis. Small bowel loops are nondistended. Mild increased stool lucencies noted throughout the colon. The appendix is not visualized. There is no free fluid or free air. No pathologic adenopathy demonstrated. Urinary bladder appears unremarkable. There is no suspicious superficial soft tissue or osseous abnormality. IMPRESSION: CIRRHOTIC LIVER. NO SPACE-OCCUPYING LESION NOTED ON THIS NONENHANCED SCAN. MILD INCREASED STOOL LUCENCIES IN THE COLON.
[2019-09-10 13:41] LABS: INR 1.4 (0.9-1.1)
[2019-09-10 13:43] LABS: ALANINE AMINOTRANSFERASE 60 U/L (12-78); ALBUMIN 2.3 G/DL (3.4-5.0); ALBUMIN/GLOBULIN RATIO 0.5 (1.0-2.7); ALKALINE PHOSPHATASE 234 U/L (46-116); ASPARTATE AMINO TRANSFERASE 110 U/L (15-37); BILIRUBIN,TOTAL 3.3 MG/DL (0.2-1.0); CREATINE KINASE 120 U/L (26-308); PHOSPHORUS 3.6 MG/DL (2.5-4.9)
[2019-09-10] MEDS ORDERED: Cefepime HCl 2 GM in D5W 55 ML IVPB ONE (13:45)
[2019-09-10] MEDS: Sandostatin 500mcg in NS 500ml IV SCH ×2 (13:46→22:58)
[2019-09-10] MEDS ORDERED: Pantoprazole Inj ONE (13:51)
--- NOTE | 2019-09-10 13:55 | Diagnostic Imaging Report ---
Procedure: XRAY Chest 1v Reason for study: Chest pain. Comparison films: None. FINDINGS: A single one view chest is obtained. Vascularity is normal. The lung fleming are clear bilaterally. Cardiac and mediastinal silhouette are within normal limits. CP angles are sharp. The bony thorax appear unremarkable. IMPRESSION: NO ACUTE CARDIOPULMONARY DISEASE.
--- NOTE | 2019-09-10 14:50 | NUR ---
ED Nurse Note: Blood transfusion initiated.
--- NOTE | 2019-09-10 15:04 | Diagnostic Imaging Report ---
EXAM: ULTRASOUND US ABD Complete CLINICAL HISTORY: Reason For Exam: ABD PAIN. COMPARISON: None TECHNIQUE: Ultrasound examination of the abdomen includes grayscale images, and color and spectral doppler analysis. FINDINGS: The liver is heterogeneous with suggestion of nodularity of hepatic contour. This could represent early cirrhosis. Spleen is within normal limits. Gallbladder is slightly contracted. Common bile duct measures 3 mm. Pancreas as well as aorta and cava are not well seen due to bowel gas. Kidneys appear unremarkable. IMPRESSION: APPARENT CIRRHOTIC CHANGES OF THE LIVER. SLIGHTLY CONTRACTED GALLBLADDER. MIDLINE STRUCTURES NOT WELL SEEN DUE TO OVERLYING BOWEL GAS.
--- NOTE | 2019-09-10 15:05 | NUR ---
ED Nurse Note: No transfusion reaction for the first 15mins. Rate increased to 125ml/hr
--- NOTE | 2019-09-10 15:34 | NUR ---
ED Nurse Note: . alonzob collected
--- NOTE | 2019-09-10 16:38 | NUR ---
ED Nurse Note: Report given to Addy
[2019-09-10 16:50] LABS: BILIRUBIN, URINE NEGATIVE (NEGATIVE); COLOR,URINE PALE YELLOW; GLUCOSE, URINE (UA) NEGATIVE (NEGATIVE); KETONES,URINE NEGATIVE (NEGATIVE); LEUKOCYTE ESTERASE ,URINE 3+ (NEGATIVE); NITRITE,URINE NEGATIVE (NEGATIVE); PH,URINE 7 (4.5-8.0); PROTEIN,URINE NEGATIVE (NEGATIVE); UROBILINOGEN,URINE NORMAL MG/DL (0.0-1.0)
--- NOTE | 2019-09-10 17:00 | NUR ---
NURSE NOTES: Received report from GUS Mccarthy. Patient arrived to unit in stable condition. No s/sx of SOB, breathing is even and unlabored on room air. GUS Mccarthy initiated ordered 1 unit of PRBC blood transfusion. VS BP 132/83, HR 78, Temp 97.5F. Denies any presence of pain or discomfort at this time. Patient is alert and oriented x 4. Patient is NPO, asking for food. Kept NPO at this time awaiting further orders from GI consult. Explained to patient and verbalized understanding. Bed is in lowest position, brakes engaged. Call light is kept within easy reach. Will continue to monitor patient.
[2019-09-10 17:25] LABS: APPEARANCE,URINE SLIGHTLY CLOUDY
--- NOTE | 2019-09-10 18:00 | NUR ---
NURSE NOTES: Dr. Esqueda seen and examined patient at bedside.
--- NOTE | 2019-09-10 18:01 | History & Physical ---
History and Physical History & Physicial Dictated for Int Med-DR Vital no. [id number]. Alphonse Esqueda MD September 10, 2019 18:01
--- NOTE | 2019-09-10 18:15 | NUR ---
NURSE NOTES: Per Dr. Esqueda will put in orders himself. Made Dr. Esqueda aware of lactic acid of 2.80. Dr. Esqueda acknowledged and gave no new orders at this time. Will continue to monitor patient.
--- NOTE | 2019-09-10 19:30 | NUR ---
HAND-OFF: Report given to GUS Ariraga.
--- NOTE | 2019-09-10 19:35 | NUR ---
NURSE NOTES: Pt received from GUS Daly alert and oriented x4 with no acute s/s of distress noted. On RA, saturating at 98%. cafeteria monitor - Sinus Rhythm (80s). IV site noted on L fa 20g, running to Octeotride and Protonix drip as ordered. 1 unit of PRBC finished with NS flushing on R fa 20g. Per AM nurse, potential EGD planned for tomorrow pending Quintin's confirmation. weight shifter RN left message with Dr. Ribeiro to confirm, currently awaiting call back. Bed in lowest position, call light and belongings within reach.
[2019-09-10 20:00] VITALS: BP 141/75
--- NOTE | 2019-09-10 21:50 | NUR ---
NURSE NOTES: Pt c/o of upper arm chronic pain, asking for PRN pain med for relief. RN left message with Dr. Vital, pending call back for orders.
--- NOTE | 2019-09-10 22:00 | History and Physical Report ---
DATE OF ADMISSION: 09/10/2019 CHIEF COMPLAINT: Patient is a 64-year-old male, who presents with a chief complaint of vomiting blood. HISTORY OF PRESENT ILLNESS: Patient has a history of alcohol use. Patient was admitted to [facility] in June 2019. Please see history and physical and discharge summary dictated at that time. Patient is homeless. Patient had 3 episodes of vomiting bright red blood starting last evening. Patient states he has been very weak. Patient may have passed out. Patient presented to [facility] emergency room. Patient was noted to have vomited bright red blood. Patient's hemoglobin was found to be 7.5. Patient is admitted with upper GI hemorrhage and anemia due to blood loss. REVIEW OF SYSTEMS: CONSTITUTIONAL: Patient denies weight loss or weight gain. Patient denies fevers or chills. HEENT: Patient denies ear or throat pain. Patient denies headache. CARDIOVASCULAR: Patient denies palpitations or chest pain. CHEST: Patient denies wheeze or shortness of breath. ABDOMINAL: Patient complains of hematemesis as above. Patient denies diarrhea or constipation. Patient complains of nausea with vomiting. NEUROMUSCULAR: Patient denies seizures. Patient complains of generalized weakness. GENITOURINARY: Patient denies dysuria or increased frequency of urination. PAST MEDICAL HISTORY: Significant for: 1. Diabetes type 2. 2. Hypertension. 3. Chronic obstructive pulmonary disease. PAST SURGICAL HISTORY: Patient denies. CURRENT MEDICATIONS: Patient denies. ALLERGIES: No known drug allergies. SOCIAL HISTORY: Patient is homeless. Patient admits to tobacco use of one-half pack per day. Patient admits to alcohol use of 4 cans of beer daily. Patient admits to sporadic cocaine use. PHYSICAL EXAMINATION: VITAL SIGNS: Temperature 98.8, respirations 20, pulse 100, blood pressure 112/69. GENERAL: Patient is well-developed, well-nourished male, in no apparent distress. HEENT: Eyes, pupils are equal and responsive to light and accommodation. Extraocular movements are intact. NECK: Supple without lymphadenopathy. CHEST: Lungs are clear to auscultation bilaterally without wheezes or rales. CARDIOVASCULAR: Tachycardic, regular rhythm. S1, S2 normal without murmurs, rubs, or gallops. ABDOMEN: Soft, nontender, nondistended. Positive bowel sounds. No evidence of hepatosplenomegaly. Currently, no rebound or guarding noted. EXTREMITIES: Negative for clubbing, cyanosis, or edema. RECTAL/GENITAL: Not performed. NEUROLOGIC: Cranial nerves II through XII are grossly intact without focal deficits. Motor strength is 5/5 bilaterally. Deep tendon reflexes are 2+ plantar. LABORATORY STUDIES: WBC 11.8, hemoglobin 7.5, hematocrit 22.7, platelets 201,000. Sodium 144, potassium 3.8, chloride 111, CO2 21, BUN 30, creatinine 1.2, glucose 106. Lactic acid 2.50. Total bilirubin 3.3, direct bilirubin 2.0, AST elevated at 110, alkaline phosphatase elevated at . A CT of the abdomen and pelvis revealed liver cirrhosis. ASSESSMENT: This is a 64-year-old male. 1. Hematemesis. 2. Upper GI hemorrhage. 3. Alcoholic cirrhosis of liver. 4. Anemia of acute blood loss. 5. Diabetes type 2. 6. Hypertension. 7. Chronic obstructive pulmonary disease. 8. Elevated liver function tests. 9. Homelessness. TREATMENT: 1. Hematemesis/upper gastrointestinal hemorrhage. A Gastroenterology consultation has been obtained with Dr. Zander Ribeiro. Patient may require emergent endoscopy during this hospitalization. We will follow recommendations of Gastroenterology. Patient has been started on intravenous Protonix and Sandostatin. 2. Alcoholic cirrhosis of liver. 3. Anemia of acute blood loss. Patient has been typed and crossed for 2 units of packed RBCs. Transfuse when available. Serial CBCs will be performed. Anemia is probably secondary to upper gastrointestinal hemorrhage as above. 4. Diabetes type 2. NovoLog sliding scale has been instituted. 5. Hypertension. Patient is currently hypotensive. 6. Chronic obstructive pulmonary disease. A Pulmonary consultation has been obtained with Dr. Mark Torres. We will follow recommendations of Pulmonary. 7. Elevated liver function tests. 8. Homelessness. Alphonse Esqueda M.D. DR: SUKHDEEP JOB#: [id number] CC:
--- NOTE | 2019-09-10 22:33 | NUR ---
NURSE NOTES: Per Dr. Vital, give Troy 5mg q6h PO PRN for pain. Will carry out orders accordingly.
--- NOTE | 2019-09-10 22:36 | NUR ---
NURSE NOTES: RN endorsed to patient protocol to swab for MRSA, VRE and CRE in homeless patients. Pt agreed to nasal MRSA swab but refused rectal VRE and CRE swab.
[2019-09-10] MEDS: HYDROcodone/Acetamin 5/325 tab ORAL PRN (22:46)
[2019-09-11] VITALS (11 sets, daily range): BP systolic 124–160; BP diastolic 62–95
--- NOTE | 2019-09-11 00:21 | NUR ---
NURSE NOTES: Pt swabbed nasally for MRSA, sent to lab.
[2019-09-11] MEDS: HYDROcodone/Acetamin 5/325 tab ORAL PRN ×2 (05:19→22:07)
--- NOTE | 2019-09-11 07:35 | NUR ---
HAND-OFF: Report given to GUS Kulkarni. Plan of care endorsed.
[2019-09-11 07:51] LABS: ANION GAP 8 mmol/L (5-15); BLOOD UREA NITROGEN 23 mg/dL (7-18); CALCIUM 7.4 MG/DL (8.5-10.1); CARBON DIOXIDE 22 MMOL/L (21-32); CHLORIDE 112 MMOL/L (98-107); CREATININE 1.2 MG/DL (0.55-1.30); POTASSIUM 3.5 MMOL/L (3.5-5.1); SODIUM 142 MMOL/L (136-145)
--- NOTE | 2019-09-11 08:00 | NUR ---
NURSE NOTES: recvd pt. Pt is AOx4, pt is on room air with no sign of sob or resp distress. Pt is appearing SR on monitor and storage bin tender. IV site noted on L fa 20g, running to Octeotride. Bed in lowest position, call light and belongings within reach.
[2019-09-11 08:08] LABS: HEMATOCRIT 22.2 % (42.0-52.0); HEMOGLOBIN 7.6 G/DL (14.2-18.0); MEAN CORPUSCULAR VOLUME 94 FL (80-99); PLATELET COUNT 168 K/UL (150-450); RED BLOOD COUNT 2.37 M/UL (4.70-6.10); RED CELL DISTRIBUTION WIDTH 17.5 % (11.6-14.8); WHITE BLOOD COUNT 9.1 K/UL (4.8-10.8)
--- NOTE | 2019-09-11 08:46 | Pre-Procedure Note/Attestation ---
Pre-Procedure Note/Attestation Complete Prior to Procedure Planned Procedure: not applicable Procedure Narrative: egd Indications for Procedure Pre-Operative Diagnosis: gib Attestation I attest that I discussed the nature of the procedure; its benefits; risks and complications; and alternatives (and the risks and benefits of such alternatives ), prior to the procedure, with the patient (or the patient's legal sales representatives). I attest that, if there was a reasonable possibility of needing a blood transfusion, the patient (or the patient's legal sales representatives) was given the [facility] standardized written summary, pursuant to the [place] Blood Safety Act ([place] Health and Safety Code # 1645, as amended). I attest that I re-evaluated the patient just prior to the surgery and that there has been no change in the patient's H&P, except as documented below: Zander Ribeiro MD September 11, 2019 08:45
--- NOTE | 2019-09-11 09:30 | NUR ---
NURSE NOTES: Pt schedule for EGD, pt has been NPO, consent signed.
--- NOTE | 2019-09-11 09:35 | NUR ---
NURSE NOTES: Dr. De Oliveira notified we called Eitan Schafer [phone] Rebecca Anna Addendum: 09/11/19 at 1038 by Cely Guzman RN above notes 237 wrong entry,discard
[2019-09-11] MEDS ORDERED: Lidocaine 1% MPF 10mg/ml 5ml ONE (10:00)
[2019-09-11] MEDS ORDERED: Phytonadione 1 MG in D5W 55 ML IVPB SCH (10:00)
--- NOTE | 2019-09-11 10:03 | Anethesia Preoperative Eval ---
Anesthesia Pre-op PMH/ROS General Date of Evaluation: September 11, 2019 Time of Evaluation: 10:03 Anesthesiologist: jesus ASA Score: ASA 3 Mallampati Score Class I : Soft palate, uvula, fauces, pillars visible Class II: Soft palate, uvula, fauces visible Class III: Soft palate, base of uvula visible Class IV: Only hard plate visible Mallampati Classification: Class II Surgeon: marian Diagnosis: gi bleed Surgical Procedure: egd w/bx Anesthesia History: none Social History: alcohol use Family History: no anesthesia problems Allergies: Coded Allergies: No Known Allergies (Unverified , 08/20/16) Medications: see eMAR Patient NPO?: Yes Past Medical History Cardiovascular: Reports: HTN Pulmonary: Reports: COPD Gastrointestinal/Genitourinary: Reports: other - hepatitis, gi bleed Endocrine: Reports: DM Anesthesia Pre-op Phys. Exam Physician Exam Last Vital Signs Date Time Temp Pulse Resp B/P (MAP) Pulse Ox O2 Delivery O2 Flow Rate FiO2 09/11/19 04:00 Room Air 09/11/19 04:00 75 09/11/19 04:00 98.0 17 124/74 (91) 98 Constitutional: NAD Neurologic: CN 2-12 intact Cardiovascular: RRR Respiratory: CTA Gastrointestinal: S/NT/ND Airway Exam Mallampati Score: Class II MO: limited Neck: flexible TMD: 2fb ROM: limited Teeth: missing Anesthesia Pre-op A/P Labs Hematology Test 09/10/19 12:37 09/11/19 07:25 White Blood Count 11.8 K/UL (4.8-10.8) H 9.1 K/UL (4.8-10.8) Red Blood Count 2.35 M/UL (4.70-6.10) L 2.37 M/UL (4.70-6.10) L Hemoglobin 7.5 G/DL (14.2-18.0) L 7.6 G/DL (14.2-18.0) L Hematocrit 22.7 % (42.0-52.0) L 22.2 % (42.0-52.0) L Mean Corpuscular Volume 97 FL (80-99) 94 FL (80-99) Mean Corpuscular Hemoglobin 31.8 PG (27.0-31.0) H 31.9 PG (27.0-31.0) H Mean Corpuscular Hemoglobin Concent 32.9 G/DL (32.0-36.0) 34.1 G/DL (32.0-36.0) Red Cell Distribution Width 18.3 % (11.6-14.8) H 17.5 % (11.6-14.8) H Platelet Count 201 K/UL (150-450) 168 K/UL (150-450) Mean Platelet Volume 6.8 FL (6.5-10.1) 6.4 FL (6.5-10.1) L Neutrophils (%) (Auto) % (45.0-75.0) % (45.0-75.0) Lymphocytes (%) (Auto) % (20.0-45.0) % (20.0-45.0) Monocytes (%) (Auto) % (1.0-10.0) % (1.0-10.0) Eosinophils (%) (Auto) % (0.0-3.0) % (0.0-3.0) Basophils (%) (Auto) % (0.0-2.0) % (0.0-2.0) Differential Total Cells Counted 100 100 Neutrophils % (Manual) 76 % (45-75) H 78 % (45-75) H Lymphocytes % (Manual) 17 % (20-45) L 9 % (20-45) L Monocytes % (Manual) 6 % (1-10) 11 % (1-10) H Eosinophils % (Manual) 1 % (0-3) 2 % (0-3) Basophils % (Manual) 0 % (0-2) 0 % (0-2) Band Neutrophils 0 % (0-8) 0 % (0-8) Nucleated Red Blood Cells 3 /100 WBC Platelet Estimate Adequate Adequate Platelet Morphology Normal Normal Hypochromasia 3+ Anisocytosis 2+ 1+ Coagulation Test 09/10/19 12:37 Prothrombin Time 15.2 SEC (9.30-11.50) H Prothromb Time International Ratio 1.4 (0.9-1.1) H Activated Partial Thromboplast Time 25 SEC (23-33) Chemistry Test 09/10/19 12:37 5/28/20 13:45 09/11/19 07:25 Sodium Level 144 MMOL/L (136-145) 142 MMOL/L (136-145) Potassium Level 3.8 MMOL/L (3.5-5.1) 3.5 MMOL/L (3.5-5.1) Chloride Level 111 MMOL/L (98-107) H 112 MMOL/L (98-107) H Carbon Dioxide Level 21 MMOL/L (21-32) 22 MMOL/L (21-32) Anion Gap 12 mmol/L (5-15) 8 mmol/L (5-15) Blood Urea Nitrogen 30 mg/dL (7-18) H 23 mg/dL (7-18) H Creatinine 1.2 MG/DL (0.55-1.30) 1.2 MG/DL (0.55-1.30) Estimat Glomerular Filtration Rate > 60 mL/min (>60) > 60 mL/min (>60) Glucose Level 106 MG/DL (74-106) 85 MG/DL (74-106) Lactic Acid Level 2.50 mmol/L (0.4-2.0) H 2.80 mmol/L (0.66-2.22) H Calcium Level 8.1 MG/DL (8.5-10.1) L 7.4 MG/DL (8.5-10.1) L Phosphorus Level 3.6 MG/DL (2.5-4.9) Magnesium Level 2.0 MG/DL (1.8-2.4) Total Bilirubin 3.3 MG/DL (0.2-1.0) H Direct Bilirubin 2.0 MG/DL (0.0-0.3) H Aspartate Amino Transf (AST/SGOT) 110 U/L (15-37) H Alanine Aminotransferase (ALT/SGPT) 60 U/L (12-78) Alkaline Phosphatase 234 U/L (46-116) H Total Creatine Kinase 120 U/L (26-308) Troponin I 0.007 ng/mL (0.000-0.056) Total Protein 7.0 G/DL (6.4-8.2) Albumin 2.3 G/DL (3.4-5.0) L Globulin 4.7 g/dL Albumin/Globulin Ratio 0.5 (1.0-2.7) L Lipase 222 U/L (73-393) Risk Assessment & Plan Assessment: asa3 Plan: mac Status Change Before Surgery: No Pre-Antibiotics Drug: Shari Guzman MD September 11, 2019 10:03
[2019-09-11] MEDS ORDERED: NS 500ML IVPB ONE (10:15)
[2019-09-11] MEDS ORDERED: DiphenhydrAMINE 50mg/ml Inj IVP PRN (10:15)
[2019-09-11] MEDS ORDERED: Midazolam 2mg/2ml Inj IVP PRN (10:15)
[2019-09-11] MEDS ORDERED: Atropine Inj 1mg/10ml Syr IV PRN (10:15)
[2019-09-11] MEDS ORDERED: fentaNYL 100 mcg/2 mL IV PRN (10:15)
[2019-09-11] MEDS: Sandostatin 500mcg in NS 500ml IV SCH ×4 (10:56→22:55)
--- NOTE | 2019-09-11 10:58 | NUR ---
CASE MANAGEMENT:INITIAL REVIEW 64 YR OLD HOMELESS MALE BIBA TO ED CC;GASTROINTESTINAL BLEED SI;GASTROINTESTINAL BLEED 98.8 100 21 112/69 100% ON RA WBC 11.8 H/H 7.5/22.7 CL 111 BUN 30 CA 8.1 LAC ACID 2.80 T-BILI 3.3 ALK P HOS 234 ALB 2.3 PT 15.2 INR 1.4 UA+ BLOOD, LEUKOCYTE, RBC TOXICOLOGY (+) COCAINE HEAD CT ~ NO ACUTE INTRACRANIAL ABNORMALITY ABD /PELVIS CT W/O CONTRAST~ CIRRHOTIC LIVER. NO SPACE-OCCUPYING LESION NOTED ON THIS NONENHANCED SCAN. MILD INCREASED STOOL LUCENCIES IN THE COLON. CXR ~ NO ACUTE CARDIOPULMONARY DISEASE. ABD US ~ APPARENT CIRRHOTIC CHANGES OF THE LIVER. IS;IVF NS BOLUS PROTONIX IV ONCE OCTREOTIDE IV O NCE THIAMINE IV ONCE CEFEPIME IV ONCE ADMITTED TO MED SURG @ 1641 ON 09/10/19 MED SURG STATUS DCP;PATIENT IS HOMELESS
--- NOTE | 2019-09-11 11:02 | Immediate Post-Op Evaluation ---
Immediate Post-Op Evalulation Immediate Post-Op Evalulation Procedure: egd w/bx Date of Evaluation: September 11, 2019 Time of Evaluation: 10:53 IV Fluids: 150ml 0.9 ns Blood Products: none Estimated Blood Loss: negligible Blood Pressure Systolic: 132 Blood Pressure Diastolic: 82 Pulse Rate: 87 Respiratory Rate: 18 O2 Sat by Pulse Oximetry: 100 Temperature (Fahrenheit): 97.6 Pain Score (1-10): 0 Nausea: No Vomiting: No Complications none Patient Status: awake, reacts, patent Hydration Status: adequate Drug: Shari Guzman MD September 11, 2019 11:02
--- NOTE | 2019-09-11 11:03 | 48 Hour Post Anesthesia Eval ---
Post Anesthesia Evaluation Procedure: egd w/bx Date of Evaluation: September 11, 2019 Time of Evaluation: 10:55 Blood Pressure Systolic: 132 0: 70 Pulse Rate: 80 Respiratory Rate: 18 Temperature (Fahrenheit): 97.6 O2 Sat by Pulse Oximetry: 100 Airway: patent Nausea: No Vomiting: No Pain Intensity: 0 Hydration Status: adequate Cardiopulmonary Status: stable Mental Status/LOC: patient returned to baseline Post-Anesthesia Complications: none Follow-up care needed: N/A Shari Hernandez MD September 11, 2019 11:03
--- NOTE | 2019-09-11 11:27 | NUR ---
*-* INSURANCE *-* ALL CLINICALS AND REVIEWS HAVE BEEN FAXED TO: [employer] P: [phone] F: [phone] Addendum: 09/14/19 at 1159 by MISTY SESAY CM [employer]ION P:[phone] F:[phone] (FAX ALL CLINICALS HERE AND TO [facility] [phone]
--- NOTE | 2019-09-11 12:36 | Consultation ---
History of Present Illness General Date patient seen: September 11, 2019 Chief Complaint: Gastrointestinal Bleed Present Illness HPI 64-year-old male with past medical history of diabetes, COPD, homelessness and alcohol abuse presented to the ER after vomiting blood since night prior to admission He complains of generalized weakness. Patient complains of some upper abdominal pain. Patient denies any diarrhea or constipation. He was recently hospitalized at [facility] for COPD exacerbation. He was then tested negative for Covid. Allergies: Coded Allergies: No Known Allergies (Unverified , 08/20/16) Medication History No Active Prescriptions or Reported Meds Patient History Healthcare decision maker Resuscitation status Advanced Directive on File Past Medical/Surgical History Past Medical/Surgical History: (1) ETOH abuse (2) COPD (chronic obstructive pulmonary disease) (3) Diabetes mellitus (4) Hepatitis C Review of Systems All Other Systems: negative except mentioned in HPI Physical Exam General Appearance: WD/WN, no apparent distress Lines, tubes and drains: peripheral HEENT: normocephalic, atraumatic Neck: non-tender, normal alignment Respiratory/Chest: chest wall non-tender, lungs clear Cardiovascular/Chest: normal peripheral pulses, normal rate Abdomen: normal bowel sounds, non tender Genitourinary/Rectal: normal genital exam, normal rectal exam Extremities: normal range of motion, non-tender Skin Exam: normal pigmentation 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 Last 24 Hour Vital Signs Date Time Temp Pulse Resp B/P (MAP) Pulse Ox O2 Delivery O2 Flow Rate FiO2 09/11/19 12:00 Room Air 09/11/19 12:00 97.1 74 16 133/84 (100) 98 09/11/19 11:32 70 09/11/19 10:50 97.4 80 19 132/70 100 Room Air 09/11/19 10:45 81 20 128/76 98 Room Air 09/11/19 10:41 97.6 87 18 132/82 100 Nasal Cannula 3 09/11/19 08:00 68 09/11/19 08:00 98.1 79 16 127/83 (98) 98 09/11/19 08:00 97.1 78 16 129/91 (104) 97 09/11/19 08:00 Room Air 09/11/19 04:00 Room Air 09/11/19 04:00 75 09/11/19 04:00 98.0 84 17 124/74 (91) 98 09/11/19 00:00 81 09/11/19 00:00 Room Air 09/11/19 00:00 98.2 84 17 133/64 (87) 98 09/10/19 20:00 98.4 84 17 141/75 (97) 97 09/10/19 20:00 Room Air 09/10/19 19:43 Room Air 09/10/19 19:22 90 09/10/19 16:05 97.8 89 17 09/10/19 15:05 98.1 86 21 09/10/19 15:00 98.1 90 20 09/10/19 14:55 97.9 95 21 09/10/19 13:26 90 18 Room Air 09/10/19 13:26 98.8 98 18 112/69 100 Room Air Intake and Output 09/10/19 09/11/19 19:00 07:00 Output Total 800 ml Balance -800 ml Output Urine Total 800 ml # Voids 1 # Bowel Movements 1 Laboratory Tests Test 09/10/19 12:37 09/10/19 13:45 09/10/19 15:25 09/10/19 16:12 White Blood Count 11.8 K/UL (4.8-10.8) H Red Blood Count 2.35 M/UL (4.70-6.10) L Hemoglobin 7.5 G/DL (14.2-18.0) L Hematocrit 22.7 % (42.0-52.0) L Mean Corpuscular Volume 97 FL (80-99) Mean Corpuscular Hemoglobin 31.8 PG (27.0-31.0) H Mean Corpuscular Hemoglobin Concent 32.9 G/DL (32.0-36.0) Red Cell Distribution Width 18.3 % (11.6-14.8) H Platelet Count 201 K/UL (150-450) Mean Platelet Volume 6.8 FL (6.5-10.1) Neutrophils (%) (Auto) % (45.0-75.0) Lymphocytes (%) (Auto) % (20.0-45.0) Monocytes (%) (Auto) % (1.0-10.0) Eosinophils (%) (Auto) % (0.0-3.0) Basophils (%) (Auto) % (0.0-2.0) Differential Total Cells Counted 100 Neutrophils % (Manual) 76 % (45-75) H Lymphocytes % (Manual) 17 % (20-45) L Monocytes % (Manual) 6 % (1-10) Eosinophils % (Manual) 1 % (0-3) Basophils % (Manual) 0 % (0-2) Band Neutrophils 0 % (0-8) Nucleated Red Blood Cells 3 /100 WBC Platelet Estimate Adequate Platelet Morphology Normal Hypochromasia 3+ Anisocytosis 2+ Prothrombin Time 15.2 SEC (9.30-11.50) H Prothromb Time International Ratio 1.4 (0.9-1.1) H Activated Partial Thromboplast Time 25 SEC (23-33) Sodium Level 144 MMOL/L (136-145) Potassium Level 3.8 MMOL/L (3.5-5.1) Chloride Level 111 MMOL/L (98-107) H Carbon Dioxide Level 21 MMOL/L (21-32) Anion Gap 12 mmol/L (5-15) Blood Urea Nitrogen 30 mg/dL (7-18) H Creatinine 1.2 MG/DL (0.55-1.30) Estimat Glomerular Filtration Rate > 60 mL/min (>60) Glucose Level 106 MG/DL (74-106) Lactic Acid Level 2.50 mmol/L (0.4-2.0) H 2.80 mmol/L (0.66-2.22) H Calcium Level 8.1 MG/DL (8.5-10.1) L Phosphorus Level 3.6 MG/DL (2.5-4.9) Magnesium Level 2.0 MG/DL (1.8-2.4) Total Bilirubin 3.3 MG/DL (0.2-1.0) H Direct Bilirubin 2.0 MG/DL (0.0-0.3) H Aspartate Amino Transf (AST/SGOT) 110 U/L (15-37) H Alanine Aminotransferase (ALT/SGPT) 60 U/L (12-78) Alkaline Phosphatase 234 U/L (46-116) H Total Creatine Kinase 120 U/L (26-308) Troponin I 0.007 ng/mL (0.000-0.056) Total Protein 7.0 G/DL (6.4-8.2) Albumin 2.3 G/DL (3.4-5.0) L Globulin 4.7 g/dL Albumin/Globulin Ratio 0.5 (1.0-2.7) L Lipase 222 U/L (73-393) Serum Alcohol < 3 mg/dL Venous Blood pH 7.474 Venous Blood Partial Pressure CO2 25.7 Venous Blood Partial Pressure O2 202.1 Venous Blood HCO3 18.5 Venous Blood Total Carbon Dioxide 25.7 Venous Blood Base Excess -4.7 Venous Blood Carboxyhemoglobin 3.3 % (0.5-1.5) H Methemoglobin 1.3 Urine Color Pale yellow Urine Appearance Slightly cloudy Urine pH 7 (4.5-8.0) Urine Specific [place] 1.010 (1.005-1.035) Urine Protein Negative (NEGATIVE) Urine Glucose (UA) Negative (NEGATIVE) Urine Ketones Negative (NEGATIVE) Urine Blood 2+ (NEGATIVE) H Urine Nitrite Negative (NEGATIVE) Urine Bilirubin Negative (NEGATIVE) Urine Urobilinogen Normal MG/DL (0.0-1.0) Urine Leukocyte Esterase 3+ (NEGATIVE) H Urine RBC 2-4 /HPF (0 - 0) H Urine WBC 2-4 /HPF (0 - 0) Urine Squamous Epithelial Cells None /LPF (NONE/OCC) Urine Bacteria Few /HPF (NONE) Urine Opiates Screen Negative (NEGATIVE) Urine Barbiturates Screen Negative (NEGATIVE) Phencyclidine (PCP) Screen Negative (NEGATIVE) Urine Amphetamines Screen Negative (NEGATIVE) Urine Benzodiazepines Screen Negative (NEGATIVE) Urine Cocaine Screen Positive (NEGATIVE) H Urine Marijuana (THC) Screen Negative (NEGATIVE) Test 09/11/19 07:25 White Blood Count 9.1 K/UL (4.8-10.8) Red Blood Count 2.37 M/UL (4.70-6.10) L Hemoglobin 7.6 G/DL (14.2-18.0) L Hematocrit 22.2 % (42.0-52.0) L Mean Corpuscular Volume 94 FL (80-99) Mean Corpuscular Hemoglobin 31.9 PG (27.0-31.0) H Mean Corpuscular Hemoglobin Concent 34.1 G/DL (32.0-36.0) Red Cell Distribution Width 17.5 % (11.6-14.8) H Platelet Count 168 K/UL (150-450) Mean Platelet Volume 6.4 FL (6.5-10.1) L Neutrophils (%) (Auto) % (45.0-75.0) Lymphocytes (%) (Auto) % (20.0-45.0) Monocytes (%) (Auto) % (1.0-10.0) Eosinophils (%) (Auto) % (0.0-3.0) Basophils (%) (Auto) % (0.0-2.0) Differential Total Cells Counted 100 Neutrophils % (Manual) 78 % (45-75) H Lymphocytes % (Manual) 9 % (20-45) L Monocytes % (Manual) 11 % (1-10) H Eosinophils % (Manual) 2 % (0-3) Basophils % (Manual) 0 % (0-2) Band Neutrophils 0 % (0-8) Platelet Estimate Adequate Platelet Morphology Normal Anisocytosis 1+ Sodium Level 142 MMOL/L (136-145) Potassium Level 3.5 MMOL/L (3.5-5.1) Chloride Level 112 MMOL/L (98-107) H Carbon Dioxide Level 22 MMOL/L (21-32) Anion Gap 8 mmol/L (5-15) Blood Urea Nitrogen 23 mg/dL (7-18) H Creatinine 1.2 MG/DL (0.55-1.30) Estimat Glomerular Filtration Rate > 60 mL/min (>60) Glucose Level 85 MG/DL (74-106) Calcium Level 7.4 MG/DL (8.5-10.1) L Height (Feet): 5 Height (Inches): 5.00 Weight (Pounds): 140 Medications Current Medications Medications (Trade) Dose Ordered Sig/Pop Route PRN Reason Start Time Stop Time Status Last Admin Dose Admin Acetaminophen/ Hydrocodone Bitart ([place] 5/325) 1 tab Q6H PRN ORAL For Pain 09/10/19 22:45 09/17/19 22:44 09/11/19 05:19 Octreotide Acetate 500 mcg/ Sodium Chloride 500 ml @ 50 mls/hr Q10H IV 09/10/19 13:00 10/10/19 12:59 09/11/19 12:18 Pantoprazole (Protonix) 40 mg DAILY ORAL 09/12/19 09:00 10/12/19 08:59 Sodium Chloride 1,000 ml @ 10 mls/hr Q24H ONCE IV 09/10/19 13:44 09/11/19 13:43 09/10/19 14:26 Assessment/Plan Problem List: (1) Gastrointestinal bleeding ICD Codes: K92.2 - Gastrointestinal hemorrhage, unspecified SNOMED: 13220311 (2) COPD (chronic obstructive pulmonary disease) ICD Codes: J44.9 - Chronic obstructive pulmonary disease, unspecified SNOMED: 75515744 (3) Anemia ICD Codes: D64.9 - Anemia, unspecified SNOMED: 344856364 (4) ETOH abuse ICD Codes: F10.10 - Alcohol abuse, uncomplicated SNOMED: 09043907 (5) Diabetes mellitus ICD Codes: E11.9 - Type 2 diabetes mellitus without complications SNOMED: 03554655 (6) Hepatitis C ICD Codes: B19.20 - Unspecified viral hepatitis C without hepatic coma SNOMED: 62632733 Assessment/Plan: NPO iv fluids GI evaluation EGD soon. check electrolytes sliding scale respiratory treatment titrate fio2 to sat of 92% dvt prophylaxis. Mark Torres MD September 11, 2019 12:36
[2019-09-11 13:05] LABS: LACTATE DEHYDROGENASE 220 U/L (81-234)
[2019-09-11 13:52] LABS: % IRON SATURATION 10 % (15-50); IRON 27 ug/dL (50-175); TOTAL IRON BINDING CAPACITY 275 ug/dL (250-450)
--- NOTE | 2019-09-11 14:00 | Consultation ---
DATE OF CONSULTATION: 09/10/2019 CONSULTING PHYSICIAN: Zander Ribeiro MD. CHIEF COMPLAINT: Hematemesis. HISTORY OF PRESENT ILLNESS: The patient is alcoholic. Apparently, he has history of heavy drinking, came to the hospital with vomiting blood, three episodes of it. The patient was recently admitted to the hospital and was discharged at the end of June. PAST MEDICAL HISTORY: 1. History of diabetes, type 2. 2. Hypertension. 3. COPD. ALLERGIES: No known drug allergies. MEDICATIONS: Please see medication reconciliation list. FAMILY HISTORY: Noncontributory. SOCIAL HISTORY: The patient is homeless. He smokes about half pack of cigarettes per day. Also drinks alcohol on daily basis. Denies any IV drug abuse. The patient had prior history of cocaine abuse and sporadically still using cocaine. REVIEW OF SYSTEMS: A 10-point review of systems was performed and pertinent positives in the HPI. PHYSICAL EXAMINATION: VITAL SIGNS: Temperature is 98, pulse 84, respirations 17, blood pressure is . HEENT: Normocephalic, atraumatic. Mild pale conjunctivae. NECK: Supple. No evidence of obvious lymphadenopathy. CARDIOVASCULAR: Regular rate and rhythm. Plus S1 and S2. LUNGS: Decreased breath sounds bilaterally diffusely on the supine exam. ABDOMEN: Soft. Bowel sounds are present. Minimal tenderness to palpation in the epigastric area. No rebound. No guarding. No peritoneal sign. EXTREMITIES: No cyanosis. No clubbing. No edema. LABORATORY DATA: White count is 11.8, hemoglobin 7.5, hematocrit 22.7, platelet count is 201. ASSESSMENT AND PLAN: This is a 64-year-old patient, homeless, alcoholic, tobacco user, cocaine user, came to the hospital with hematemesis with hemoglobin of 7.5. Plan to transfuse 1 unit of blood, given 1 unit of fresh frozen plasma, given INR of 1.4. The patient to be on Protonix. Plan to do an endoscopy tomorrow morning. The patient was seen on September 10, 2019. I want to thank, Dr. Esqueda for this kind referral. Zander Ribeiro M.D. DR: SHERIN JOB#: [id number] CC: Alphonse Esqueda MD.; Fax#: [phone]
--- NOTE | 2019-09-11 15:05 | NUR ---
CFO CONTROLLER NOTE PT is identified as homeless. PT's last admission was 07/12/2019-07/14/2019. Pt presents as A&O 4x, ambulatory w/o DMEs and independent w/ ADLs. Pt reports he drank ETOH prior to admission. Per chart review, pt was p/u under bridge. Pt declined to inform this SW where he is currently staying and his next destination. Pt states "I will find a place to go. Don't worry." PT denies other substance abuse issue. Pt declined counseling/tx intervention on ETOH abuse. Pt denies mental health issues. Pt did not disclose detailed psychosocial information. Pt did not provide any emergency contact at this time. Pt provided his uncle's number (unknown name) [phone] but did not provide verbal consent to contact. Pt wants to be discharged to his preferred location upon DC. If pt is medically cleared and DC to preferred location, bus pass will be provided. Pt did not share any concerns/needs at this time. SW to F/U as needed.
--- NOTE | 2019-09-11 15:35 | NUR ---
NURSE NOTES: Blood transfusion started at 1530, VS: BP 120/50 HR 72 Temp 97.9
--- NOTE | 2019-09-11 17:45 | Procedure Note ---
DATE OF PROCEDURE: 09/11/2019 SURGEON: Zander Ribeiro MD. REFERRING PHYSICIAN: Oleg Vital MD, and Selwyn White MD. PROCEDURE: Upper endoscopy with biopsy and banding of varices. ANESTHESIA: Per Dr. Jaquez. INSTRUMENT: Olympus adult flexible upper endoscope. INDICATION: Upper GI bleeding. The procedure, risks, benefits, and possible consequences, including hemorrhage, aspiration, perforation and infection, and alternative treatments, were explained to the patient/legal guardian by Dr. Zander Ribeiro and the patient/legal guardian understood and accepted these risks. DESCRIPTION OF PROCEDURE: After informed consent was obtained and the patient was adequately sedated, Olympus upper endoscope was advanced from the mouth into second portion of the duodenum and retroflexion was performed in the stomach. There was diffuse gastritis. Random biopsy from antrum was obtained to rule out H. pylori infection. The patient had evidence of two 3 columns of esophageal varices, the biggest one was right at the GE junction. At this time, we removed the scope. Banding device was placed. Total of 3 bands were placed in the distal esophagus. The patient tolerated the procedure very well without any complication. SUMMARY OF FINDINGS: 1. Esophageal varices, status post banding x3. 2. Gastritis, status post biopsy. RECOMMENDATIONS: Follow up biopsy results. Start clear-liquid diet today and advance as tolerated. Monitor hemoglobin and hematocrit, and transfuse as needed. The patient needs to get workup for cirrhosis. I want to thank, Dr. Vital and Dr. White, for this kind referral. Zander Ribeiro M.D. DR: Mateus JOB#: [id number] CC: Oleg Vital M.D.; Fax#: [phone] SELWYN WHITE M.D. ; FAX#: [phone]
--- NOTE | 2019-09-11 18:43 | Internal Med Progress Note ---
Subjective Physician Name Oleg Vital Attending Physician Oleg Vital MD Current Medications Medications (Trade) Dose Ordered Sig/Pop Route PRN Reason Start Time Stop Time Status Last Admin Dose Admin Acetaminophen/ Hydrocodone Bitart ([place] 5/325) 1 tab Q6H PRN ORAL For Pain 09/10/19 22:45 09/17/19 22:44 09/11/19 05:19 Octreotide Acetate 500 mcg/ Sodium Chloride 500 ml @ 50 mls/hr Q10H IV 09/10/19 13:00 10/10/19 12:59 09/11/19 12:18 Pantoprazole (Protonix) 40 mg DAILY ORAL 09/12/19 09:00 10/12/19 08:59 Allergies: Coded Allergies: No Known Allergies (Unverified , 08/20/16) Subjective awake, alert, responsive, No chest pain or SOB, Hgb: 7.6 Objective Last Vital Signs Date Time Temp Pulse Resp B/P (MAP) Pulse Ox O2 Delivery O2 Flow Rate FiO2 09/11/19 17:52 80 18 100 09/11/19 16:00 97.9 138/72 (94) 09/11/19 16:00 Room Air 09/11/19 10:41 3 Laboratory Tests Test 09/11/19 07:25 White Blood Count 9.1 K/UL (4.8-10.8) Red Blood Count 2.37 M/UL (4.70-6.10) L Hemoglobin 7.6 G/DL (14.2-18.0) L Hematocrit 22.2 % (42.0-52.0) L Mean Corpuscular Volume 94 FL (80-99) Mean Corpuscular Hemoglobin 31.9 PG (27.0-31.0) H Mean Corpuscular Hemoglobin Concent 34.1 G/DL (32.0-36.0) Red Cell Distribution Width 17.5 % (11.6-14.8) H Platelet Count 168 K/UL (150-450) Mean Platelet Volume 6.4 FL (6.5-10.1) L Neutrophils (%) (Auto) % (45.0-75.0) Lymphocytes (%) (Auto) % (20.0-45.0) Monocytes (%) (Auto) % (1.0-10.0) Eosinophils (%) (Auto) % (0.0-3.0) Basophils (%) (Auto) % (0.0-2.0) Differential Total Cells Counted 100 Neutrophils % (Manual) 78 % (45-75) H Lymphocytes % (Manual) 9 % (20-45) L Monocytes % (Manual) 11 % (1-10) H Eosinophils % (Manual) 2 % (0-3) Basophils % (Manual) 0 % (0-2) Band Neutrophils 0 % (0-8) Platelet Estimate Adequate Platelet Morphology Normal Anisocytosis 1+ Erythrocyte Sedimentation Rate 50 MM/HR (0-20) H Reticulocyte Count 3.5 % (0.5-2.0) H Sodium Level 142 MMOL/L (136-145) Potassium Level 3.5 MMOL/L (3.5-5.1) Chloride Level 112 MMOL/L (98-107) H Carbon Dioxide Level 22 MMOL/L (21-32) Anion Gap 8 mmol/L (5-15) Blood Urea Nitrogen 23 mg/dL (7-18) H Creatinine 1.2 MG/DL (0.55-1.30) Estimat Glomerular Filtration Rate > 60 mL/min (>60) Glucose Level 85 MG/DL (74-106) Calcium Level 7.4 MG/DL (8.5-10.1) L Iron Level 27 ug/dL (50-175) L Total Iron Binding Capacity 275 ug/dL (250-450) Percent Iron Saturation 10 % (15-50) L Unsaturated Iron Binding 248 ug/dL (112-346) Lactate Dehydrogenase 220 U/L (81-234) Carcinoembryonic Antigen Pending Vitamin B12 Level 572 PG/ML (193-986) Folate 24.7 NG/ML (8.6-58.9) Intake and Output 09/10/19 09/11/19 18:59 06:59 Output Total 800 ml Balance -800 ml Output Urine Total 800 ml # Voids 1 # Bowel Movements 1 Objective General: No acute distress, awake and alert HEENT: NCAT, sclera anicteric, PERRL, EOMI. Neck: Supple, no significant jugular venous distention, Lungs: Good inspiratory effort, decrease air at bases, no Wheeze or Rales. Heart: Regular rate and rhythm, normal S1/S2, no murmurs Abdomen: soft, nontender, + distended, + bowel sounds. / Rectal: Refused and deferred. Extremities: No Cyanosis , clubbing or edema. Neuro: A&O x 3, Able to move all extremities Skin: warm, no rash Assessment/Plan Assessment/Plan ASSESSMENT: This is a 64-year-old male. 1. Hematemesis. 2. Upper GI hemorrhage. 3. Alcoholic cirrhosis of liver. 4. Anemia of acute blood loss. 5. Diabetes type 2. 6. Hypertension. 7. Chronic obstructive pulmonary disease. 8. Elevated liver function tests. 9. Homelessness. TREATMENT: 1. Hematemesis/upper gastrointestinal hemorrhage. A Gastroenterology consultation has been obtained with Dr. Zander Ribeiro. 2. Alcoholic cirrhosis of liver. 3. Anemia of acute blood loss. Patient has been typed and crossed for 2 units of packed RBCs. Transfuse when available. Serial CBCs will be performed. Anemia is probably secondary to upper gastrointestinal hemorrhage as above. 4. Diabetes type 2. NovoLog sliding scale has been instituted. 5. Hypertension. Patient is currently hypotensive. 6. Chronic obstructive pulmonary disease. A Pulmonary consultation has been obtained with Dr. Mark Torres. We will follow recommendations of Pulmonary. 7. Elevated liver function tests. 8. Homelessness. Transfuse PRBC, Monitor labs in AM. EGD (09/11/2019) 1. Esophageal varices, status post banding x3. 2. Gastritis, status post biopsy. RECOMMENDATIONS: Follow up biopsy results. Start clear-liquid diet today and advance as tolerated. Monitor hemoglobin and hematocrit, and transfuse as needed. The patient needs to get workup for cirrhosis. Oleg Vital MD September 11, 2019 18:43
--- NOTE | 2019-09-11 19:02 | Diagnostic Imaging Report ---
Indication: Abdominal pain, abnormal liver function tests and renal function tests Technique: Solorzano-scale and duplex images of the upper abdomen were obtained Comparison: 09/10/2019 Findings: Interim development of trace ascites fluid Gallbladder demonstrates wall thickening, wall measuring up to 4 mm in thickness. No gallstones. No pericholecystic fluid. Sonographic Brower's sign is negative. Common bile duct measures for mm in diameter. No intrahepatic biliary ductal dilatation. Liver demonstrates coarsened echogenicity. It demonstrates surface nodularity Portal vein and hepatic veins are patent. Pancreas is obscured by bowel gas. Spleen is unremarkable. Left kidney measures 9.2 cm in length. Right kidney measures 9.9 cm length. Both kidneys demonstrate normal echogenicity. There is no hydronephrosis. No focal abnormality . Partially obscured. Impression: Evidence of hepatic cirrhosis, also previously described Trace ascites. This is a new finding since ultrasound of the previous day Negative for gallstones. There is mild gallbladder wall thickening. This is probably edema secondary to the hepatic abnormality, but the possibility of acute acalculous cholecystitis should also be considered. Negative for dilated bile ducts Note inability to visualize the pancreas
--- NOTE | 2019-09-11 19:50 | NUR ---
NURSE NOTES: Received pt from GUS Kulkarni. Pt awake, alert, and c/o hunger. Bed in lowest position. Call light within reach. Will continue to monitor.
[2019-09-11 21:19] LABS: INR 1.3 (0.9-1.1)
[2019-09-12 03:22] VITALS: BP 138/76
[2019-09-12] MEDS: HYDROcodone/Acetamin 5/325 tab ORAL PRN ×2 (06:16→14:53)
--- NOTE | 2019-09-12 07:18 | NUR ---
NURSE NOTES: Received report from Xenia WEBER.
--- NOTE | 2019-09-12 07:27 | NUR ---
HAND-OFF: Report given to GUS Vila. Pt stable.
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
[2019-09-12 07:32] LABS: HEMATOCRIT 25.7 % (42.0-52.0); MEAN CORPUSCULAR VOLUME 92 FL (80-99); PLATELET COUNT 176 K/UL (150-450); RED CELL DISTRIBUTION WIDTH 17.3 % (11.6-14.8); WHITE BLOOD COUNT 8.2 K/UL (4.8-10.8)
[2019-09-12 07:47] LABS: ALANINE AMINOTRANSFERASE 63 U/L (12-78); ALBUMIN/GLOBULIN RATIO 0.5 (1.0-2.7); ALKALINE PHOSPHATASE 184 U/L (46-116); ANION GAP 5 mmol/L (5-15); ASPARTATE AMINO TRANSFERASE 123 U/L (15-37); BILIRUBIN,TOTAL 3.1 MG/DL (0.2-1.0); BLOOD UREA NITROGEN 13 mg/dL (7-18); CALCIUM 7.2 MG/DL (8.5-10.1); CARBON DIOXIDE 25 MMOL/L (21-32); CHLORIDE 105 MMOL/L (98-107); POTASSIUM 3.1 MMOL/L (3.5-5.1); SODIUM 135 MMOL/L (136-145)
[2019-09-12 07:48] LABS: BILIRUBIN,DIRECT 2.4 MG/DL (0.0-0.3)
[2019-09-12 07:50] LABS: PHOSPHORUS 2.9 MG/DL (2.5-4.9)
[2019-09-12 07:55] LABS: AMMONIA 74 umol/L (11-32)
[2019-09-12 08:00] VITALS: BP 142/78
[2019-09-12 12:00] VITALS: BP 133/76
--- NOTE | 2019-09-12 12:30 | Internal Med Progress Note ---
Subjective Date of Service: September 12, 2019 Physician Name Alphonse Esqueda Attending Physician Oleg Vital MD Current Medications Medications (Trade) Dose Ordered Sig/Pop Route PRN Reason Start Time Stop Time Status Last Admin Dose Admin Acetaminophen/ Hydrocodone Bitart ([place] 5/325) 1 tab Q6H PRN ORAL For Pain 09/10/19 22:45 09/17/19 22:44 09/12/19 06:16 Pantoprazole (Protonix) 40 mg DAILY ORAL 09/12/19 09:00 10/12/19 08:59 09/12/19 08:45 Allergies: Coded Allergies: No Known Allergies (Unverified , 08/20/16) ROS Limited/Unobtainable: No Constitutional: Reports: no symptoms HEENT: Reports: no symptoms Cardiovascular: Reports: no symptoms Respiratory: Reports: no symptoms Gastrointestinal/Abdominal: Reports: no symptoms Genitourinary: Reports: no symptoms Neurologic/Psychiatric: Reports: no symptoms Subjective 64 YO M admitted with hematemesis. Now esophageal varices. S/P endoscopy with banding 09/11/19. Cover for Int med-Dr Vital. Step down unit Objective Last Vital Signs Date Time Temp Pulse Resp B/P (MAP) Pulse Ox O2 Delivery O2 Flow Rate FiO2 09/12/19 08:00 96.9 70 21 142/78 (99) 97 09/12/19 08:00 Room Air 09/11/19 10:41 3 Laboratory Tests Test 09/11/19 20:50 09/12/19 06:22 Prothrombin Time 14.0 SEC (9.30-11.50) H Prothromb Time International Ratio 1.3 (0.9-1.1) H Activated Partial Thromboplast Time 27 SEC (23-33) White Blood Count 8.2 K/UL (4.8-10.8) Red Blood Count 2.80 M/UL (4.70-6.10) L Hemoglobin 9.0 G/DL (14.2-18.0) L Hematocrit 25.7 % (42.0-52.0) L Mean Corpuscular Volume 92 FL (80-99) Mean Corpuscular Hemoglobin 32.1 PG (27.0-31.0) H Mean Corpuscular Hemoglobin Concent 35.0 G/DL (32.0-36.0) Red Cell Distribution Width 17.3 % (11.6-14.8) H Platelet Count 176 K/UL (150-450) Mean Platelet Volume 6.5 FL (6.5-10.1) Neutrophils (%) (Auto) % (45.0-75.0) Lymphocytes (%) (Auto) % (20.0-45.0) Monocytes (%) (Auto) % (1.0-10.0) Eosinophils (%) (Auto) % (0.0-3.0) Basophils (%) (Auto) % (0.0-2.0) Differential Total Cells Counted 100 Neutrophils % (Manual) 64 % (45-75) Lymphocytes % (Manual) 25 % (20-45) Monocytes % (Manual) 7 % (1-10) Eosinophils % (Manual) 4 % (0-3) H Basophils % (Manual) 0 % (0-2) Band Neutrophils 0 % (0-8) Platelet Estimate Adequate Platelet Morphology Normal Hypochromasia 1+ Anisocytosis 1+ Sodium Level 135 MMOL/L (136-145) L Potassium Level 3.1 MMOL/L (3.5-5.1) L Chloride Level 105 MMOL/L (98-107) Carbon Dioxide Level 25 MMOL/L (21-32) Anion Gap 5 mmol/L (5-15) Blood Urea Nitrogen 13 mg/dL (7-18) Creatinine 1.0 MG/DL (0.55-1.30) Estimat Glomerular Filtration Rate > 60 mL/min (>60) Glucose Level 96 MG/DL (74-106) Calcium Level 7.2 MG/DL (8.5-10.1) L Phosphorus Level 2.9 MG/DL (2.5-4.9) Magnesium Level 1.8 MG/DL (1.8-2.4) Total Bilirubin 3.1 MG/DL (0.2-1.0) H Direct Bilirubin 2.4 MG/DL (0.0-0.3) H Aspartate Amino Transf (AST/SGOT) 123 U/L (15-37) H Alanine Aminotransferase (ALT/SGPT) 63 U/L (12-78) Alkaline Phosphatase 184 U/L (46-116) H Ammonia 74 umol/L (11-32) H Total Protein 6.4 G/DL (6.4-8.2) Albumin 2.0 G/DL (3.4-5.0) L Globulin 4.4 g/dL Albumin/Globulin Ratio 0.5 (1.0-2.7) L Hepatitis A IgM Antibody Pending Hepatitis B Surface Antigen Pending Hepatitis B Core IgM Antibody Pending Hepatitis C Antibody Pending Microbiology Date/Time Source Procedure Growth Status 09/10/19 12:37 Blood Blood Culture - Preliminary NO GROWTH AFTER 24 HOURS Resulted 09/10/19 12:37 Blood Blood Culture - Preliminary NO GROWTH AFTER 24 HOURS Resulted 09/10/19 16:12 Urine,Clean Catch Urine Culture - Final Mixed Urogenital Contaminants Complete Intake and Output 09/11/19 09/12/19 19:00 07:00 Intake Total 1120 ml 350 ml Output Total 1200 ml 500 ml Balance -80 ml -150 ml Intake Oral 950 ml IV Total 170 ml 350 ml Output Urine Total 1200 ml 500 ml Estimated Blood Loss 0 ml Objective PHYSICAL EXAMINATION: GENERAL: Patient is well-developed, well-nourished male, in no apparent distress. HEENT: Eyes, pupils are equal and responsive to light and accommodation. Extraocular movements are intact. NECK: Supple without lymphadenopathy. CHEST: Lungs are clear to auscultation bilaterally without wheezes or rales. CARDIOVASCULAR: Tachycardic, regular rhythm. S1, S2 normal without murmurs, rubs, or gallops. ABDOMEN: Soft, nontender, nondistended. Positive bowel sounds. No evidence of hepatosplenomegaly. Currently, no rebound or guarding noted. EXTREMITIES: Negative for clubbing, cyanosis, or edema. RECTAL/GENITAL: Not performed. NEUROLOGIC: Cranial nerves II through XII are grossly intact without focal deficits. Motor strength is 5/5 bilaterally. Deep tendon reflexes are 2+ plantar. Assessment/Plan Assessment/Plan ASSESSMENT: This is a 64-year-old male. 1. Hematemesis. 2. Upper GI hemorrhage. 3. Alcoholic cirrhosis of liver. 4. Anemia of acute blood loss. 5. Diabetes type 2. 6. Hypertension. 7. Chronic obstructive pulmonary disease. 8. Elevated liver function tests. 9. Homelessness. 10 Esophageal varices. TREATMENT: 1. Hematemesis/upper gastrointestinal hemorrhage. A Gastroenterology consultation has been obtained with Dr. Zander Ribeiro. Continue intravenous Protonix and Sandostatin. 2. Alcoholic cirrhosis of liver. 3. Anemia of acute blood loss. S/P transfusion 2 units of packed RBCs. 4. Diabetes type 2. NovoLog sliding scale has been instituted. 5. Hypertension. Patient is currently hypotensive. 6. Chronic obstructive pulmonary disease. A Pulmonary consultation has been obtained with Dr. Mark Torres. We will follow recommendations of Pulmonary. 7. Elevated liver function tests. 8. Homelessness. 9. S/P endoscopy 09/11/19=esophageal varices, S/P banding Alphonse Esqueda MD September 12, 2019 12:30
--- NOTE | 2019-09-12 14:30 | NUR ---
NURSE NOTES: Called and received T.O from Dr. Torres for Kcl 40 meq. po x 1.
[2019-09-12 16:00] VITALS: BP 138/66
--- NOTE | 2019-09-12 19:16 | NUR ---
HAND-OFF: Report given to Adan WEBER. Pt. remain stable.
--- NOTE | 2019-09-12 19:20 | NUR ---
NURSE NOTES: Report received from GUS Warren. Observed pt lying in the bed, awake, denies any pain at this time. SR on cardiac rehabilitation program director. On room air with no sob. IV on R FA, asymptomatic. No distress noted at this time. Bed in the lowest position. Side rails up x3. Will continue to monitor.
[2019-09-12 20:00] VITALS: BP 121/66
--- NOTE | 2019-09-12 21:00 | NUR ---
HAND-OFF: Report given to GUS Michaels.
--- NOTE | 2019-09-12 21:05 | NUR ---
NURSE NOTES: Received pt from GUS Rocha. Pt awake, alert, and talkative. Bed in lowest position. Call light within reach. Will continue to monitor.
[2019-09-13] VITALS (7 sets, daily range): BP systolic 102–123; BP diastolic 61–75
--- NOTE | 2019-09-13 01:10 | Pulmonology Progress Note ---
Subjective ROS Limited/Unobtainable: No Allergies: Coded Allergies: No Known Allergies (Unverified , 08/20/16) Objective Last 24 Hour Vital Signs Date Time Temp Pulse Resp B/P (MAP) Pulse Ox O2 Delivery O2 Flow Rate FiO2 09/13/19 00:00 97.2 78 20 112/74 (87) 98 09/13/19 00:00 Room Air 09/13/19 00:00 78 09/12/19 20:00 98.2 71 20 121/66 (84) 100 09/12/19 20:00 Room Air 09/12/19 20:00 75 09/12/19 16:00 97.7 68 23 138/66 (90) 100 09/12/19 16:00 59 09/12/19 16:00 Room Air 09/12/19 12:00 Room Air 09/12/19 12:00 96.1 74 20 133/76 (95) 98 09/12/19 11:41 65 09/12/19 08:00 96.9 70 21 142/78 (99) 97 09/12/19 08:00 Room Air 09/12/19 08:00 66 09/12/19 04:00 70 09/12/19 03:27 Room Air 09/12/19 03:22 98.2 79 138/76 (96) 97 Intake and Output 09/12/19 09/13/19 19:00 07:00 Intake Total 650 ml Output Total 900 ml Balance -250 ml Intake Oral 650 ml Output Urine Total 900 ml General Appearance: WD/WN HEENT: normocephalic, atraumatic Respiratory: chest wall non-tender, lungs clear Cardiovascular: normal peripheral pulses, normal rate Abdomen: normal bowel sounds, soft, non tender Genitourinary: normal external genitalia Skin: no rash Microbiology Date/Time Source Procedure Growth Status 09/10/19 12:37 Blood Blood Culture - Preliminary NO GROWTH AFTER 24 HOURS Resulted 09/10/19 12:37 Blood Blood Culture - Preliminary NO GROWTH AFTER 24 HOURS Resulted 09/10/19 16:12 Urine,Clean Catch Urine Culture - Final Mixed Urogenital Contaminants Complete Laboratory Tests 09/12/19 06:22: White Blood Count 8.2, Red Blood Count 2.80L, Hemoglobin 9.0L, Hematocrit 25.7L , Mean Corpuscular Volume 92, Mean Corpuscular Hemoglobin 32.1H, Mean Corpuscular Hemoglobin Concent 35.0, Red Cell Distribution Width 17.3H, Platelet Count 176, Mean Platelet Volume 6.5, Neutrophils (%) (Auto) , Lymphocytes (%) (Auto) , Monocytes (%) (Auto) , Eosinophils (%) (Auto) , Basophils (%) (Auto) , Differential Total Cells Counted 100, Neutrophils % ( Manual) 64, Lymphocytes % (Manual) 25, Monocytes % (Manual) 7, Eosinophils % ( Manual) 4H, Basophils % (Manual) 0, Band Neutrophils 0, Platelet Estimate Adequate, Platelet Morphology Normal, Hypochromasia 1+, Anisocytosis 1+, Sodium Level 135L, Potassium Level 3.1L, Chloride Level 105, Carbon Dioxide Level 25, Anion Gap 5, Blood Urea Nitrogen 13, Creatinine 1.0, Estimat Glomerular Filtration Rate > 60, Glucose Level 96, Calcium Level 7.2L, Phosphorus Level 2.9 , Magnesium Level 1.8, Total Bilirubin 3.1H, Direct Bilirubin 2.4H, Aspartate Amino Transf (AST/SGOT) 123H, Alanine Aminotransferase (ALT/SGPT) 63, Alkaline Phosphatase 184H, Ammonia 74H, Total Protein 6.4, Albumin 2.0L, Globulin 4.4, Albumin/Globulin Ratio 0.5L, Hepatitis A IgM Antibody [Pending], Hepatitis B Surface Antigen [Pending], Hepatitis B Core IgM Antibody [Pending], Hepatitis C Antibody [Pending] Current Medications Medications (Trade) Dose Ordered Sig/Pop Route PRN Reason Start Time Stop Time Status Last Admin Dose Admin Acetaminophen/ Hydrocodone Bitart ([place] 5/325) 1 tab Q6H PRN ORAL For Pain 09/10/19 22:45 09/17/19 22:44 09/12/19 14:53 Cetylpyridinium Chloride (Cepacol) 1 lozg EVERY 2 HOURS PRN CONSTANZA For Cough 09/12/19 16:45 12/11/19 16:44 09/12/19 17:47 Pantoprazole (Protonix) 40 mg DAILY ORAL 09/12/19 09:00 10/12/19 08:59 09/12/19 08:45 Assessment/Plan Problems: (1) Gastrointestinal bleeding (2) COPD (chronic obstructive pulmonary disease) (3) Anemia (4) ETOH abuse (5) Diabetes mellitus (6) Hepatitis C Assessment/Plan doing better no more bleeding prbc prn f/u GI recommendations prbc prn Mark Torres MD September 13, 2019 01:10
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
--- NOTE | 2019-09-13 07:02 | NUR ---
HAND-OFF: Report given to GUS Vila. Pt stable.
[2019-09-13 07:15] LABS: BASOPHILS % (AUTO) 0.5 % (0.0-2.0); EOSINOPHILS % (AUTO) 1.8 % (0.0-3.0); HEMATOCRIT 26.2 % (42.0-52.0); HEMOGLOBIN 9.1 G/DL (14.2-18.0); LYMPHOCYTES % (AUTO) 18.8 % (20.0-45.0); MEAN CORPUSCULAR VOLUME 92 FL (80-99); MONOCYTES % (AUTO) 9.2 % (1.0-10.0); NEUTROPHILS % (AUTO) 69.7 % (45.0-75.0); PLATELET COUNT 193 K/UL (150-450); RED BLOOD COUNT 2.85 M/UL (4.70-6.10); RED CELL DISTRIBUTION WIDTH 17.2 % (11.6-14.8); WHITE BLOOD COUNT 9.9 K/UL (4.8-10.8)
--- NOTE | 2019-09-13 07:17 | Pulmonology Progress Note ---
Subjective ROS Limited/Unobtainable: No Allergies: Coded Allergies: No Known Allergies (Unverified , 08/20/16) Subjective pulse ox stable on RA labs pending for thsi am no signs of bleeding Objective Last 24 Hour Vital Signs Date Time Temp Pulse Resp B/P (MAP) Pulse Ox O2 Delivery O2 Flow Rate FiO2 09/13/19 04:00 99.0 73 20 112/64 (80) 100 09/13/19 04:00 81 09/13/19 04:00 Room Air 09/13/19 00:00 97.2 78 20 112/74 (87) 98 09/13/19 00:00 Room Air 09/13/19 00:00 78 09/12/19 20:00 98.2 71 20 121/66 (84) 100 09/12/19 20:00 Room Air 09/12/19 20:00 75 09/12/19 16:00 97.7 68 23 138/66 (90) 100 09/12/19 16:00 59 09/12/19 16:00 Room Air 09/12/19 12:00 Room Air 09/12/19 12:00 96.1 74 20 133/76 (95) 98 09/12/19 11:41 65 09/12/19 08:00 96.9 70 21 142/78 (99) 97 09/12/19 08:00 Room Air 09/12/19 08:00 66 Intake and Output 09/12/19 09/13/19 19:00 07:00 Intake Total 650 ml Output Total 900 ml Balance -250 ml Intake Oral 650 ml Output Urine Total 900 ml # Voids 3 # Bowel Movements 1 Microbiology Date/Time Source Procedure Growth Status 09/10/19 12:37 Blood Blood Culture - Preliminary NO GROWTH AFTER 48 HOURS Resulted 09/10/19 12:37 Blood Blood Culture - Preliminary NO GROWTH AFTER 48 HOURS Resulted 09/10/19 16:12 Urine,Clean Catch Urine Culture - Final Mixed Urogenital Contaminants Complete Laboratory Tests 09/13/19 06:50: White Blood Count [Pending], Red Blood Count [Pending], Hemoglobin [Pending], Hematocrit [Pending], Mean Corpuscular Volume [Pending], Mean Corpuscular Hemoglobin [Pending], Mean Corpuscular Hemoglobin Concent [Pending], Red Cell Distribution Width [Pending], Platelet Count [Pending], Mean Platelet Volume [ Pending], Neutrophils (%) (Auto) [Pending], Lymphocytes (%) (Auto) [Pending], Monocytes (%) (Auto) [Pending], Eosinophils (%) (Auto) [Pending], Basophils (%) (Auto) [Pending], Sodium Level [Pending], Potassium Level [Pending], Chloride Level [Pending], Carbon Dioxide Level [Pending], Blood Urea Nitrogen [Pending], Creatinine [Pending], Estimat Glomerular Filtration Rate [Pending], Glucose Level [Pending], Calcium Level [Pending], Total Bilirubin [Pending], Aspartate Amino Transf (AST/SGOT) [Pending], Alanine Aminotransferase (ALT/SGPT) [Pending] , Alkaline Phosphatase [Pending], Ammonia [Pending], Total Protein [Pending], Albumin [Pending], Globulin [Pending] Current Medications Medications (Trade) Dose Ordered Sig/Pop Route PRN Reason Start Time Stop Time Status Last Admin Dose Admin Acetaminophen/ Hydrocodone Bitart ([place] 5/325) 1 tab Q6H PRN ORAL For Pain 09/10/19 22:45 09/17/19 22:44 09/12/19 14:53 Cetylpyridinium Chloride (Cepacol) 1 lozg EVERY 2 HOURS PRN CONSTANZA For Cough 09/12/19 16:45 12/11/19 16:44 09/12/19 17:47 Lactulose (Cephulac) 20 gm BID ORAL 09/13/19 09:00 10/13/19 08:59 Pantoprazole (Protonix) 40 mg DAILY ORAL 09/12/19 09:00 10/12/19 08:59 09/12/19 08:45 Propranolol HCl (Inderal) 10 mg Q8HR ORAL 09/13/19 14:00 10/13/19 13:59 Rifaximin (Xifaxan) 550 mg EVERY 12 HOURS ORAL 09/13/19 09:00 09/20/19 08:59 Assessment/Plan Assessment/Plan ASSESSMENT GI bleeding COPD ETOH abuse esophageal varices , s/p banding x 3 gastritis hep C DM anemia of acute blood loss , requiring blood transfusion hypokalemia transaminitis PLAN OF CARE LOPEZ s/p EGD with banding on PPI and propranolol monitor HH with goal to keep Hgb above 7, anemia w/up noted CL diet and advance as per GI recs trend LFT Lactulose and Rifaximin, trend ammonia monitor lytes, replace as needed ( K was prior replaced) O2 prn , keep sat above 90, remains stable on RA HHN prn no signs of COPD exacerbation at this time BS monitoring supportive care pain management case discussed and evaluated by supervising physician Nancy Freitas NP September 13, 2019 07:17
--- NOTE | 2019-09-13 07:21 | NUR ---
NURSE NOTES: Received report from Xenia WEBER.
[2019-09-13 07:54] LABS: ALANINE AMINOTRANSFERASE 108 U/L (12-78); ALBUMIN/GLOBULIN RATIO 0.5 (1.0-2.7); ALKALINE PHOSPHATASE 181 U/L (46-116); ANION GAP 6 mmol/L (5-15); ASPARTATE AMINO TRANSFERASE 187 U/L (15-37); BILIRUBIN,TOTAL 3.2 MG/DL (0.2-1.0); BLOOD UREA NITROGEN 8 mg/dL (7-18); CALCIUM 7.4 MG/DL (8.5-10.1); CARBON DIOXIDE 24 MMOL/L (21-32); CHLORIDE 105 MMOL/L (98-107); POTASSIUM 3.4 MMOL/L (3.5-5.1); SODIUM 135 MMOL/L (136-145)
[2019-09-13 08:02] LABS: AMMONIA 78 umol/L (11-32)
[2019-09-13 08:13] LABS: BILIRUBIN,DIRECT 2.4 MG/DL (0.0-0.3)
--- NOTE | 2019-09-13 08:31 | NUR ---
NURSE NOTES: Pt. in bed, watching T.V. Relaxed. No sign of distress. Denies pain at present. No n/v noted. IV at left FA and right FA both #20g. in placed patent/intact. Bed in low position, locked. Call light within reach. Will cont. to monitor.
--- NOTE | 2019-09-13 08:52 | Pulmonology Progress Note ---
Subjective ROS Limited/Unobtainable: No Allergies: Coded Allergies: No Known Allergies (Unverified , 08/20/16) Subjective pulse ox stable on RA labs pending for thsi am no signs of bleeding Objective Last 24 Hour Vital Signs Date Time Temp Pulse Resp B/P (MAP) Pulse Ox O2 Delivery O2 Flow Rate FiO2 09/13/19 08:00 Room Air 09/13/19 08:00 98.2 80 18 102/61 (75) 98 09/13/19 07:46 73 09/13/19 04:00 99.0 73 20 112/64 (80) 100 09/13/19 04:00 81 09/13/19 04:00 Room Air 09/13/19 00:00 97.2 78 20 112/74 (87) 98 09/13/19 00:00 Room Air 09/13/19 00:00 78 09/12/19 20:00 98.2 71 20 121/66 (84) 100 09/12/19 20:00 Room Air 09/12/19 20:00 75 09/12/19 16:00 97.7 68 23 138/66 (90) 100 09/12/19 16:00 59 09/12/19 16:00 Room Air 09/12/19 12:00 Room Air 09/12/19 12:00 96.1 74 20 133/76 (95) 98 09/12/19 11:41 65 Intake and Output 09/12/19 09/13/19 19:00 07:00 Intake Total 650 ml Output Total 900 ml Balance -250 ml Intake Oral 650 ml Output Urine Total 900 ml # Voids 3 # Bowel Movements 1 General Appearance: no acute distress, cachetic - AA male HEENT: normocephalic, atraumatic, anicteric, mucous membranes moist Respiratory: lungs clear Cardiovascular: normal rate Abdomen: normal bowel sounds, other - distended, mild diffused tenderness Extremities: no edema, pedal pulses normal Neurologic: alert, oriented x 3, responsive Musculoskeletal: normal muscle bulk Microbiology Date/Time Source Procedure Growth Status 09/10/19 12:37 Blood Blood Culture - Preliminary NO GROWTH AFTER 48 HOURS Resulted 09/10/19 12:37 Blood Blood Culture - Preliminary NO GROWTH AFTER 48 HOURS Resulted 09/10/19 16:12 Urine,Clean Catch Urine Culture - Final Mixed Urogenital Contaminants Complete Laboratory Tests 09/13/19 06:50: White Blood Count 9.9, Red Blood Count 2.85L, Hemoglobin 9.1L, Hematocrit 26.2L , Mean Corpuscular Volume 92, Mean Corpuscular Hemoglobin 31.8H, Mean Corpuscular Hemoglobin Concent 34.6, Red Cell Distribution Width 17.2H, Platelet Count 193, Mean Platelet Volume 6.5, Neutrophils (%) (Auto) 69.7, Lymphocytes (%) (Auto) 18.8L, Monocytes (%) (Auto) 9.2, Eosinophils (%) (Auto) 1.8, Basophils (%) (Auto) 0.5, Sodium Level 135L, Potassium Level 3.4L, Chloride Level 105, Carbon Dioxide Level 24, Anion Gap 6, Blood Urea Nitrogen 8 , Creatinine 1.0, Estimat Glomerular Filtration Rate > 60, Glucose Level 101, Calcium Level 7.4L, Total Bilirubin 3.2H, Direct Bilirubin 2.4H, Aspartate Amino Transf (AST/SGOT) 187H, Alanine Aminotransferase (ALT/SGPT) 108H, Alkaline Phosphatase 181H, Ammonia 78H, Total Protein 6.4, Albumin 2.0L, Globulin 4.4, Albumin/Globulin Ratio 0.5L Current Medications Medications (Trade) Dose Ordered Sig/Pop Route PRN Reason Start Time Stop Time Status Last Admin Dose Admin Acetaminophen/ Hydrocodone Bitart ([place] 5/325) 1 tab Q6H PRN ORAL For Pain 09/10/19 22:45 09/17/19 22:44 09/12/19 14:53 Cetylpyridinium Chloride (Cepacol) 1 lozg EVERY 2 HOURS PRN CONSTANZA For Cough 09/12/19 16:45 12/11/19 16:44 09/12/19 17:47 Lactulose (Cephulac) 20 gm BID ORAL 09/13/19 09:00 10/13/19 08:59 Pantoprazole (Protonix) 40 mg DAILY ORAL 09/12/19 09:00 10/12/19 08:59 09/12/19 08:45 Propranolol HCl (Inderal) 10 mg Q8HR ORAL 09/13/19 14:00 10/13/19 13:59 Rifaximin (Xifaxan) 550 mg EVERY 12 HOURS ORAL 09/13/19 09:00 6/7/20 08:59 Assessment/Plan Assessment/Plan ASSESSMENT GI bleeding COPD ETOH abuse esophageal varices , s/p banding x 3 gastritis hep C DM anemia of acute blood loss , requiring blood transfusion hypokalemia transaminitis PLAN OF CARE LOPEZ s/p EGD with banding on PPI and propranolol monitor HH with goal to keep Hgb above 7, remains stable GI recommends repeat ECG in 4 wks anemia w/up noted CL diet and advance as per GI recs trend LFT hep panel pending Lactulose and Rifaximin, trend ammonia CEA -8 monitor lytes, replace as needed ( K was prior replaced) O2 prn , keep sat above 90, remains stable on RA HHN prn no signs of COPD exacerbation at this time BC NGTD UCX mixed urogenital contaminant, initial leukocytosis resolved, likely reactive BS monitoring supportive care pain management dietary eval can be transferred to [facility] floor case discussed and evaluated by supervising physician Nancy Freitas NP September 13, 2019 08:52
[2019-09-13] MEDS ORDERED: Lactulose 20gm/30ml UDC ORAL SCH (09:00)
--- NOTE | 2019-09-13 11:42 | NUR ---
NURSE NOTES: Gave report to Dori WEBER at 3E.
--- NOTE | 2019-09-13 11:50 | NUR ---
NURSE NOTES: Received report from Briana WEBER. Patient transferred from SDU in no apparent distress. Belongings checked. RFA IV removed, LFA IV intact and patent. Patient updated on plan of care. Side rails upx3, bed low and locked, call light within reach, bed alarm armed.
[2019-09-13] MEDS ORDERED: HYDROcodone/Acetamin 5/325 tab ORAL PRN (12:30)
--- NOTE | 2019-09-13 13:59 | Internal Med Progress Note ---
Subjective Date of Service: September 13, 2019 Physician Name YinAlphonse Attending Physician Oleg Vital MD Current Medications Medications (Trade) Dose Ordered Sig/Pop Route PRN Reason Start Time Stop Time Status Last Admin Dose Admin Acetaminophen/ Hydrocodone Bitart ([place] 5/325) 1 tab Q6H PRN ORAL For Pain 09/13/19 12:30 09/17/19 12:29 Cetylpyridinium Chloride (Cepacol) 1 lozg Q2H PRN CONSTANZA For Cough 09/13/19 14:00 12/12/19 13:59 Lactulose (Cephulac) 20 gm BID ORAL 09/13/19 18:00 10/13/19 08:59 Pantoprazole (Protonix) 40 mg DAILY ORAL 09/14/19 09:00 10/12/19 08:59 Propranolol HCl (Inderal) 10 mg Q8HR ORAL 09/13/19 14:00 10/13/19 13:59 Rifaximin (Xifaxan) 550 mg EVERY 12 HOURS ORAL 09/13/19 21:00 09/20/19 08:59 Allergies: Coded Allergies: No Known Allergies (Unverified , 08/20/16) ROS Limited/Unobtainable: No Constitutional: Reports: no symptoms HEENT: Reports: no symptoms Cardiovascular: Reports: no symptoms Respiratory: Reports: no symptoms Gastrointestinal/Abdominal: Reports: no symptoms Genitourinary: Reports: no symptoms Neurologic/Psychiatric: Reports: no symptoms Subjective 64 YO M admitted with hematemesis. Now esophageal varices. S/P endoscopy with banding 09/11/19. Cover for Int med-Dr Vital. Med/surg Objective Last Vital Signs Date Time Temp Pulse Resp B/P (MAP) Pulse Ox O2 Delivery O2 Flow Rate FiO2 09/13/19 13:46 80 109/75 (86) 09/13/19 12:00 98.6 19 99 09/13/19 12:00 Room Air 09/11/19 10:41 3 Laboratory Tests Test 09/13/19 06:50 White Blood Count 9.9 K/UL (4.8-10.8) Red Blood Count 2.85 M/UL (4.70-6.10) L Hemoglobin 9.1 G/DL (14.2-18.0) L Hematocrit 26.2 % (42.0-52.0) L Mean Corpuscular Volume 92 FL (80-99) Mean Corpuscular Hemoglobin 31.8 PG (27.0-31.0) H Mean Corpuscular Hemoglobin Concent 34.6 G/DL (32.0-36.0) Red Cell Distribution Width 17.2 % (11.6-14.8) H Platelet Count 193 K/UL (150-450) Mean Platelet Volume 6.5 FL (6.5-10.1) Neutrophils (%) (Auto) 69.7 % (45.0-75.0) Lymphocytes (%) (Auto) 18.8 % (20.0-45.0) L Monocytes (%) (Auto) 9.2 % (1.0-10.0) Eosinophils (%) (Auto) 1.8 % (0.0-3.0) Basophils (%) (Auto) 0.5 % (0.0-2.0) Sodium Level 135 MMOL/L (136-145) L Potassium Level 3.4 MMOL/L (3.5-5.1) L Chloride Level 105 MMOL/L (98-107) Carbon Dioxide Level 24 MMOL/L (21-32) Anion Gap 6 mmol/L (5-15) Blood Urea Nitrogen 8 mg/dL (7-18) Creatinine 1.0 MG/DL (0.55-1.30) Estimat Glomerular Filtration Rate > 60 mL/min (>60) Glucose Level 101 MG/DL (74-106) Calcium Level 7.4 MG/DL (8.5-10.1) L Total Bilirubin 3.2 MG/DL (0.2-1.0) H Direct Bilirubin 2.4 MG/DL (0.0-0.3) H Aspartate Amino Transf (AST/SGOT) 187 U/L (15-37) H Alanine Aminotransferase (ALT/SGPT) 108 U/L (12-78) H Alkaline Phosphatase 181 U/L (46-116) H Ammonia 78 umol/L (11-32) H Total Protein 6.4 G/DL (6.4-8.2) Albumin 2.0 G/DL (3.4-5.0) L Globulin 4.4 g/dL Albumin/Globulin Ratio 0.5 (1.0-2.7) L Microbiology Date/Time Source Procedure Growth Status 09/10/19 22:00 Nasal Nares MRSA Culture - Final Staphylococcus Aureus - Mrsa Complete 09/10/19 16:12 Urine,Clean Catch Urine Culture - Final Mixed Urogenital Contaminants Complete Intake and Output 09/12/19 09/13/19 19:00 07:00 Intake Total 650 ml Output Total 900 ml Balance -250 ml Intake Oral 650 ml Output Urine Total 900 ml # Voids 3 # Bowel Movements 1 Objective PHYSICAL EXAMINATION: GENERAL: Patient is well-developed, well-nourished male, in no apparent distress. HEENT: Eyes, pupils are equal and responsive to light and accommodation. Extraocular movements are intact. NECK: Supple without lymphadenopathy. CHEST: Lungs are clear to auscultation bilaterally without wheezes or rales. CARDIOVASCULAR: Tachycardic, regular rhythm. S1, S2 normal without murmurs, rubs, or gallops. ABDOMEN: Soft, nontender, nondistended. Positive bowel sounds. No evidence of hepatosplenomegaly. Currently, no rebound or guarding noted. EXTREMITIES: Negative for clubbing, cyanosis, or edema. RECTAL/GENITAL: Not performed. NEUROLOGIC: Cranial nerves II through XII are grossly intact without focal deficits. Motor strength is 5/5 bilaterally. Deep tendon reflexes are 2+ plantar. Assessment/Plan Assessment/Plan ASSESSMENT: This is a 64-year-old male. 1. Hematemesis. 2. Upper GI hemorrhage. 3. Alcoholic cirrhosis of liver. 4. Anemia of acute blood loss. 5. Diabetes type 2. 6. Hypertension. 7. Chronic obstructive pulmonary disease. 8. Elevated liver function tests. 9. Homelessness. 10 Esophageal varices. TREATMENT: 1. Hematemesis/upper gastrointestinal hemorrhage. A Gastroenterology consultation has been obtained with Dr. Zander Ribeiro. Continue intravenous Protonix, lactulose and Xifaxan 2. Alcoholic cirrhosis of liver. 3. Anemia of acute blood loss. S/P transfusion 2 units of packed RBCs. 4. Diabetes type 2. NovoLog sliding scale has been instituted. 5. Hypertension. Patient is currently hypotensive. 6. Chronic obstructive pulmonary disease. A Pulmonary consultation has been obtained with Dr. Mark Torres. We will follow recommendations of Pulmonary. 7. Elevated liver function tests. 8. Homelessness. 9. S/P endoscopy 09/11/19=esophageal varices, S/P banding Alphonse Esqueda MD September 13, 2019 13:59
[2019-09-13] MEDS ORDERED: Propranolol 10mg tab ORAL SCH (14:00)
[2019-09-13] MEDS: Propranolol 10mg tab ORAL SCH ×2 (14:12→21:23)
--- NOTE | 2019-09-13 14:37 | NUR ---
NURSE NOTES: Per Dr. Esqueda, michelle to cancel OB stool order.
[2019-09-13] MEDS: Lactulose 20gm/30ml UDC ORAL SCH (17:14)
--- NOTE | 2019-09-13 19:30 | NUR ---
NURSE NOTES: Report received from [facility]. Patient in stable condition. Cough noted and dyspnea on exertion noted. Otherwise, patient is stable. Side rails upx3. Bed is low and in locked position. Bed alarm zone 1 on. Reminded patient in regards to use of call light for assistance.
--- NOTE | 2019-09-13 19:31 | NUR ---
HAND-OFF: Report given to Elizabeth WEBER. Patient is in stable condition.
[2019-09-14] VITALS: BP 132/78
[2019-09-14 04:00] VITALS: BP 118/64
[2019-09-14] MEDS: Propranolol 10mg tab ORAL SCH ×3 (06:16→21:04)
[2019-09-14 07:15] LABS: BASOPHILS % (AUTO) 0.8 % (0.0-2.0); EOSINOPHILS % (AUTO) 1.7 % (0.0-3.0); HEMATOCRIT 26.5 % (42.0-52.0); LYMPHOCYTES % (AUTO) 23.1 % (20.0-45.0); MEAN CORPUSCULAR VOLUME 94 FL (80-99); MONOCYTES % (AUTO) 12.2 % (1.0-10.0); NEUTROPHILS % (AUTO) 62.3 % (45.0-75.0); PLATELET COUNT 198 K/UL (150-450); RED BLOOD COUNT 2.81 M/UL (4.70-6.10); RED CELL DISTRIBUTION WIDTH 17.4 % (11.6-14.8); WHITE BLOOD COUNT 9.8 K/UL (4.8-10.8)
[2019-09-14 07:23] LABS: ALANINE AMINOTRANSFERASE 110 U/L (12-78); ALBUMIN 1.9 G/DL (3.4-5.0); ALBUMIN/GLOBULIN RATIO 0.4 (1.0-2.7); ALKALINE PHOSPHATASE 207 U/L (46-116); ANION GAP 8 mmol/L (5-15); ASPARTATE AMINO TRANSFERASE 159 U/L (15-37); BILIRUBIN,TOTAL 2.6 MG/DL (0.2-1.0); BLOOD UREA NITROGEN 9 mg/dL (7-18); CALCIUM 7.4 MG/DL (8.5-10.1); CARBON DIOXIDE 23 MMOL/L (21-32); CHLORIDE 106 MMOL/L (98-107); CREATININE 1.1 MG/DL (0.55-1.30); POTASSIUM 3.6 MMOL/L (3.5-5.1); SODIUM 137 MMOL/L (136-145)
[2019-09-14 07:24] LABS: AMMONIA 65 umol/L (11-32)
--- NOTE | 2019-09-14 07:45 | NUR ---
NURSE NOTES: Report received from G[facility]. Pt awake in bed. Pt alert and oriented, able to make needs known. No acute distress noted. Denies any pain at this time. IV intact and patent. Side rails upx3. Bed is low and in locked position. Bed alarm on. Call light within reach. Reminded patient of using call light for assistance. Will continue to monitor.
--- NOTE | 2019-09-14 07:56 | NUR ---
NURSE NOTES: Report given to Amy Tapia RN. Patient in stable condition.
[2019-09-14 08:00] VITALS: BP 107/64
[2019-09-14] MEDS: Lactulose 20gm/30ml UDC ORAL SCH ×2 (08:51→18:00)
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
[2019-09-14] MEDS ORDERED: Tubing IV Secondary IV ONE (10:09)
[2019-09-14] MEDS ORDERED: NS 275ml ONE (10:09)
[2019-09-14 12:00] VITALS: BP 106/61
--- NOTE | 2019-09-14 12:07 | NUR ---
*-* INSURANCE *-* UPDATED CLINICALS HAVE BEEN FAXED TO: [facility] P:[phone] F:[phone] (FAX ALL CLINICALS HERE AND TO [facility] [phone]
--- NOTE | 2019-09-14 12:57 | Pulmonology Progress Note ---
Subjective ROS Limited/Unobtainable: No Constitutional: Reports: no symptoms HEENT: Repors: no symptoms Respiratory: Reports: no symptoms Allergies: Coded Allergies: No Known Allergies (Unverified , 08/20/16) Objective Last 24 Hour Vital Signs Date Time Temp Pulse Resp B/P (MAP) Pulse Ox O2 Delivery O2 Flow Rate FiO2 09/14/19 12:00 98.3 65 20 106/61 (76) 97 09/14/19 09:00 Room Air 09/14/19 08:00 97.3 62 20 107/64 (78) 97 09/14/19 06:16 66 118/64 09/14/19 04:00 98.5 66 18 118/64 (82) 98 09/14/19 00:00 98.8 68 18 132/78 (96) 98 09/13/19 21:23 69 108/72 09/13/19 21:00 Room Air 09/13/19 20:00 98.6 69 18 108/72 (84) 98 09/13/19 16:00 98.6 67 18 121/71 (88) 98 09/13/19 14:12 80 109/75 09/13/19 13:46 80 109/75 (86) Intake and Output 09/13/19 09/14/19 19:00 07:00 Intake Total 1020 ml Output Total 400 ml 350 ml Balance 620 ml -350 ml Intake Oral 420 ml Other 600 ml Output Urine Total 400 ml 350 ml # Voids 3 3 General Appearance: WD/WN HEENT: normocephalic, atraumatic Respiratory: chest wall non-tender, lungs clear Cardiovascular: normal peripheral pulses, normal rate Abdomen: normal bowel sounds, soft, non tender Genitourinary: normal external genitalia Extremities: no edema, pedal pulses normal Skin: no rash Neurologic: alert, oriented x 3, responsive Musculoskeletal: normal muscle bulk Laboratory Tests 09/14/19 06:05: White Blood Count 9.8, Red Blood Count 2.81L, Hemoglobin 9.0L, Hematocrit 26.5L , Mean Corpuscular Volume 94, Mean Corpuscular Hemoglobin 32.1H, Mean Corpuscular Hemoglobin Concent 34.1, Red Cell Distribution Width 17.4H, Platelet Count 198, Mean Platelet Volume 7.0, Neutrophils (%) (Auto) 62.3, Lymphocytes (%) (Auto) 23.1, Monocytes (%) (Auto) 12.2H, Eosinophils (%) (Auto) 1.7, Basophils (%) (Auto) 0.8, Sodium Level 137, Potassium Level 3.6, Chloride Level 106, Carbon Dioxide Level 23, Anion Gap 8, Blood Urea Nitrogen 9, Creatinine 1.1, Estimat Glomerular Filtration Rate > 60, Glucose Level 85, Calcium Level 7.4L, Total Bilirubin 2.6H, Direct Bilirubin 2.0H, Aspartate Amino Transf (AST/SGOT) 159H, Alanine Aminotransferase (ALT/SGPT) 110H, Alkaline Phosphatase 207H, Ammonia 65H, Total Protein 6.2L, Albumin 1.9L, Globulin 4.3, Albumin/Globulin Ratio 0.4L Current Medications Medications (Trade) Dose Ordered Sig/Pop Route PRN Reason Start Time Stop Time Status Last Admin Dose Admin Acetaminophen/ Hydrocodone Bitart ([place] 5/325) 1 tab Q6H PRN ORAL For Pain 09/13/19 12:30 09/17/19 12:29 Cetylpyridinium Chloride (Cepacol) 1 lozg Q2H PRN CONSTANZA For Cough 09/13/19 14:00 12/12/19 13:59 09/14/19 06:16 Lactulose (Cephulac) 20 gm BID ORAL 09/13/19 18:00 10/13/19 08:59 09/14/19 08:51 Pantoprazole (Protonix) 40 mg DAILY ORAL 09/14/19 09:00 10/12/19 08:59 09/14/19 08:51 Propranolol HCl (Inderal) 10 mg Q8HR ORAL 09/13/19 14:00 10/13/19 13:59 09/14/19 06:16 Rifaximin (Xifaxan) 550 mg EVERY 12 HOURS ORAL 09/13/19 21:00 09/20/19 08:59 09/14/19 08:51 Assessment/Plan Problems: (1) Gastrointestinal bleeding (2) COPD (chronic obstructive pulmonary disease) (3) Anemia (4) ETOH abuse (5) Diabetes mellitus (6) Hepatitis C Assessment/Plan d/w Dr Friedmanospat, pt needs Colonoscopy CEA is elevated doing better no more bleeding prbc prn f/u GI recommendations prbc prn Mark Torres MD Sep 14, 2019 12:57
--- NOTE | 2019-09-14 13:35 | NUR ---
Social Work This Sw followed up with patient who is requesting placement. Patient explains he does not have any income for Board and Care placement, while refusing fdc placement. Patient requesting a list of additional homeless options; additional list provided to patient (EMILIA Aguirre had already provided information as well). Clothing also provided (shoes, shirt and shorts). Patient explains he will inform nursing the location/address of choice for transportation/cab voucher. Nursing informed. Pending order for discharge at this time.
[2019-09-14] MEDS ORDERED: Nulytely 4L ORAL SCH (14:00)
[2019-09-14 16:00] VITALS: BP 102/56
--- NOTE | 2019-09-14 16:14 | NUR ---
CASE MANAGEMENT:REVIEW 09/12/19 SI:GASTROINTESTINAL BLEED 98.8 100 21 112/69 100% ON RA H/H 9.0/25.7 NA+ 135 K+ 3.1 CA+7.2 T.ASHTYN/D.ASHTYN 3.1/2.4 AST 123 ALKP 184 AMMONIA 74 HEP C > 11.0 IS:K-DUR PO X1 PROTONIX PO QD \: 3E MED SURG UNIT DCP: PATIENT IS HOMELESS CASE MANAGEMENT:REVIEW 09/13/19 SI:GASTROINTESTINAL BLEED 98.8 100 21 112/69 100% ON RA H/H 9.1/26.2 NA+ 135 K+ 3.4 CA+ 7.4 T.ASHTYN/D.ASHTYN 3.2/2.4 AST/ALT 187/108 ALKP 181 AMMONIA 78 IS:K-DUR PO X1 PROTONIX PO QD \: 3E MED SURG UNIT DCP: PATIENT IS HOMELESS CASE MANAGEMENT:REVIEW 09/14/19 SI:GASTROINTESTINAL BLEED 98.3 65 20 106/61 97% ON RA H/H 9.0/26.5 CA+ 7.4 T.ASHTYN/D.ASHTYN 2.6/2.0 AST/ALT 159/110 ALKP 207 AMMONIA 65 ALB 1.9 IS:LACTULOSE PO BID PROTONIX PO QD \: 3E MED SURG UNIT DCP: PATIENT IS HOMELESS PLAN: COLONOSCOPY IN AM
--- NOTE | 2019-09-14 18:17 | Internal Med Progress Note ---
Subjective Date of Service: Sep 14, 2019 Physician Name Alphonse Esqueda Attending Physician Oleg Vital MD Current Medications Medications (Trade) Dose Ordered Sig/Pop Route PRN Reason Start Time Stop Time Status Last Admin Dose Admin Acetaminophen/ Hydrocodone Bitart ([place] 5/325) 1 tab Q6H PRN ORAL For Pain 09/13/19 12:30 09/17/19 12:29 Cetylpyridinium Chloride (Cepacol) 1 lozg Q2H PRN CONSTANZA For Cough 09/13/19 14:00 12/12/19 13:59 09/14/19 06:16 Lactulose (Cephulac) 20 gm BID ORAL 09/13/19 18:00 10/13/19 08:59 09/14/19 08:51 Pantoprazole (Protonix) 40 mg DAILY ORAL 09/14/19 09:00 10/12/19 08:59 09/14/19 08:51 Polyethylene Glycol/ Electrolytes (Nulytely) 4,000 ml ONCE ORAL 09/14/19 14:00 09/14/19 23:59 09/14/19 14:00 Propranolol HCl (Inderal) 10 mg Q8HR ORAL 09/13/19 14:00 10/13/19 13:59 09/14/19 06:16 Rifaximin (Xifaxan) 550 mg EVERY 12 HOURS ORAL 09/13/19 21:00 09/20/19 08:59 09/14/19 08:51 Allergies: Coded Allergies: No Known Allergies (Unverified , 08/20/16) ROS Limited/Unobtainable: No Constitutional: Reports: no symptoms HEENT: Reports: no symptoms Cardiovascular: Reports: no symptoms Respiratory: Reports: no symptoms Gastrointestinal/Abdominal: Reports: no symptoms Genitourinary: Reports: no symptoms Neurologic/Psychiatric: Reports: no symptoms Subjective 64 YO M admitted with hematemesis. Now esophageal varices. S/P endoscopy with banding 09/11/19. Cover for Int med-Dr Vital. Med/surg. Colonoscopy scheduled for 09/15/19 Objective Last Vital Signs Date Time Temp Pulse Resp B/P (MAP) Pulse Ox O2 Delivery O2 Flow Rate FiO2 09/14/19 16:00 98.1 67 20 102/56 (71) 97 09/14/19 09:00 Room Air 09/11/19 10:41 3 Laboratory Tests Test 09/14/19 06:05 White Blood Count 9.8 K/UL (4.8-10.8) Red Blood Count 2.81 M/UL (4.70-6.10) L Hemoglobin 9.0 G/DL (14.2-18.0) L Hematocrit 26.5 % (42.0-52.0) L Mean Corpuscular Volume 94 FL (80-99) Mean Corpuscular Hemoglobin 32.1 PG (27.0-31.0) H Mean Corpuscular Hemoglobin Concent 34.1 G/DL (32.0-36.0) Red Cell Distribution Width 17.4 % (11.6-14.8) H Platelet Count 198 K/UL (150-450) Mean Platelet Volume 7.0 FL (6.5-10.1) Neutrophils (%) (Auto) 62.3 % (45.0-75.0) Lymphocytes (%) (Auto) 23.1 % (20.0-45.0) Monocytes (%) (Auto) 12.2 % (1.0-10.0) H Eosinophils (%) (Auto) 1.7 % (0.0-3.0) Basophils (%) (Auto) 0.8 % (0.0-2.0) Sodium Level 137 MMOL/L (136-145) Potassium Level 3.6 MMOL/L (3.5-5.1) Chloride Level 106 MMOL/L (98-107) Carbon Dioxide Level 23 MMOL/L (21-32) Anion Gap 8 mmol/L (5-15) Blood Urea Nitrogen 9 mg/dL (7-18) Creatinine 1.1 MG/DL (0.55-1.30) Estimat Glomerular Filtration Rate > 60 mL/min (>60) Glucose Level 85 MG/DL (74-106) Calcium Level 7.4 MG/DL (8.5-10.1) L Total Bilirubin 2.6 MG/DL (0.2-1.0) H Direct Bilirubin 2.0 MG/DL (0.0-0.3) H Aspartate Amino Transf (AST/SGOT) 159 U/L (15-37) H Alanine Aminotransferase (ALT/SGPT) 110 U/L (12-78) H Alkaline Phosphatase 207 U/L (46-116) H Ammonia 65 umol/L (11-32) H Total Protein 6.2 G/DL (6.4-8.2) L Albumin 1.9 G/DL (3.4-5.0) L Globulin 4.3 g/dL Albumin/Globulin Ratio 0.4 (1.0-2.7) L Intake and Output 09/13/19 09/14/19 19:00 07:00 Intake Total 1020 ml Output Total 400 ml 350 ml Balance 620 ml -350 ml Intake Oral 420 ml Other 600 ml Output Urine Total 400 ml 350 ml # Voids 3 3 Objective PHYSICAL EXAMINATION: GENERAL: Patient is well-developed, well-nourished male, in no apparent distress. HEENT: Eyes, pupils are equal and responsive to light and accommodation. Extraocular movements are intact. NECK: Supple without lymphadenopathy. CHEST: Lungs are clear to auscultation bilaterally without wheezes or rales. CARDIOVASCULAR: Tachycardic, regular rhythm. S1, S2 normal without murmurs, rubs, or gallops. ABDOMEN: Soft, nontender, nondistended. Positive bowel sounds. No evidence of hepatosplenomegaly. Currently, no rebound or guarding noted. EXTREMITIES: Negative for clubbing, cyanosis, or edema. RECTAL/GENITAL: Not performed. NEUROLOGIC: Cranial nerves II through XII are grossly intact without focal deficits. Motor strength is 5/5 bilaterally. Deep tendon reflexes are 2+ plantar. Assessment/Plan Assessment/Plan ASSESSMENT: This is a 64-year-old male. 1. Hematemesis. 2. Upper GI hemorrhage. 3. Alcoholic cirrhosis of liver. 4. Anemia of acute blood loss. 5. Diabetes type 2. 6. Hypertension. 7. Chronic obstructive pulmonary disease. 8. Elevated liver function tests. 9. Homelessness. 10 Esophageal varices. TREATMENT: 1. Hematemesis/upper gastrointestinal hemorrhage. A Gastroenterology consultation has been obtained with Dr. Zander Ribeiro. Continue intravenous Protonix, lactulose and Xifaxan 2. Alcoholic cirrhosis of liver. 3. Anemia of acute blood loss. S/P transfusion 2 units of packed RBCs. 4. Diabetes type 2. NovoLog sliding scale has been instituted. 5. Hypertension. Patient is currently hypotensive. 6. Chronic obstructive pulmonary disease. A Pulmonary consultation has been obtained with Dr. Mark Torres. We will follow recommendations of Pulmonary. 7. Elevated liver function tests. 8. Homelessness. 9. S/P endoscopy 09/11/19=esophageal varices, S/P banding 10. Await Colonoscopy 09/15/19 Alphonse Esqueda MD Sep 14, 2019 18:17
--- NOTE | 2019-09-14 19:30 | NUR ---
NURSE NOTES: Report received from GUS Tapia. Pt awake in bed. Pt alert and oriented x 4, able to make needs known. No acute distress noted. Denies any pain at this time. IV intact and patent. Side rails upx3. Bed is low and in locked position. Bed alarm on. Call light within reach. Reminded patient of using call light for assistance. Will continue to monitor.
[2019-09-14 20:00] VITALS: BP 120/74
[2019-09-15] VITALS (9 sets, daily range): BP systolic 93–121; BP diastolic 53–79
[2019-09-15] MEDS: Propranolol 10mg tab ORAL SCH (06:11)
[2019-09-15 07:17] LABS: EOSINOPHILS % (AUTO) 2.8 % (0.0-3.0); HEMATOCRIT 26.8 % (42.0-52.0); HEMOGLOBIN 9.2 G/DL (14.2-18.0); LYMPHOCYTES % (AUTO) 20.7 % (20.0-45.0); MEAN CORPUSCULAR VOLUME 95 FL (80-99); MONOCYTES % (AUTO) 12.9 % (1.0-10.0); NEUTROPHILS % (AUTO) 62.6 % (45.0-75.0); PLATELET COUNT 232 K/UL (150-450); RED BLOOD COUNT 2.84 M/UL (4.70-6.10); WHITE BLOOD COUNT 9.5 K/UL (4.8-10.8)
--- NOTE | 2019-09-15 07:22 | NUR ---
HAND-OFF: Report given to Juliette WEBER. Patient in stable condition.
[2019-09-15 07:24] LABS: ALANINE AMINOTRANSFERASE 109 U/L (12-78); ALBUMIN/GLOBULIN RATIO 0.5 (1.0-2.7); ALKALINE PHOSPHATASE 231 U/L (46-116); ANION GAP 7 mmol/L (5-15); ASPARTATE AMINO TRANSFERASE 145 U/L (15-37); BILIRUBIN,DIRECT 1.9 MG/DL (0.0-0.3); BILIRUBIN,TOTAL 2.9 MG/DL (0.2-1.0); BLOOD UREA NITROGEN 5 mg/dL (7-18); CALCIUM 7.7 MG/DL (8.5-10.1); CARBON DIOXIDE 26 MMOL/L (21-32); CHLORIDE 103 MMOL/L (98-107); POTASSIUM 3.7 MMOL/L (3.5-5.1); SODIUM 136 MMOL/L (136-145)
[2019-09-15 07:38] LABS: PHOSPHORUS 3.4 MG/DL (2.5-4.9)
[2019-09-15] MEDS: Lactulose 20gm/30ml UDC ORAL SCH (08:23)
--- NOTE | 2019-09-15 10:08 | NUR ---
RD ASSESSMENT & RECOMMENDATIONS SEE CARE ACTIVITY FOR COMPLETE ASSESSMENT DAILY ESTIMATED NEEDS: Needs based on Liver dz 63.6kg 25-30 kcals/kg 2938-0996 total kcals 1-1.5 g protein/kg 64-95 g total protein Fluid per Md NUTRITION DIAGNOSIS: Decreased sodium intake related cirrhosis, liver disease as evidenced by elev LFt's, elev ammonia, Hep C antibodies. CURRENT DIET: NPO for GI PO DIET RECOMMENDATIONS: LOW NA/ SOFT DIET ADDITIONAL RECOMMENDATIONS: 1) Obtain a weekly standing weight 2) Add Ensure 1 bottle qdaily
--- NOTE | 2019-09-15 10:59 | NUR ---
*-* INSURANCE *-* UPDATED CLINICALS AND REVIEWS HAVE BEEN FAXED TO: [employer] P:[phone] F:[phone] (FAX ALL CLINICALS HERE AND TO [facility] [phone]
[2019-09-15] MEDS ORDERED: Lidocaine 1% MPF 10mg/ml 5ml ONE (11:00)
--- NOTE | 2019-09-15 11:11 | Anethesia Preoperative Eval ---
Anesthesia Pre-op PMH/ROS General Date of Evaluation: Sep 15, 2019 Time of Evaluation: 11:08 Anesthesiologist: jesus ASA Score: ASA 3 Mallampati Score Class I : Soft palate, uvula, fauces, pillars visible Class II: Soft palate, uvula, fauces visible Class III: Soft palate, base of uvula visible Class IV: Only hard plate visible Mallampati Classification: Class II Surgeon: marian Diagnosis: gi bleed Surgical Procedure: colonoscopy Anesthesia History: none Social History: smoking - unknown status Family History: no anesthesia problems Allergies: Coded Allergies: No Known Allergies (Unverified , 08/20/16) Medications: see eMAR Patient NPO?: Yes Past Medical History Cardiovascular: Reports: HTN, other - syncope Pulmonary: Reports: COPD Gastrointestinal/Genitourinary: Reports: GERD, other - hep c, cirrhosis, esophageal varices Endocrine: Reports: DM Hematology/Immune: Reports: anemia, other - sepsis, mrsa Anesthesia Pre-op Phys. Exam Physician Exam Last Vital Signs Date Time Temp Pulse Resp B/P (MAP) Pulse Ox O2 Delivery O2 Flow Rate FiO2 09/15/19 09:00 Room Air 09/15/19 08:00 98.1 64 18 108/70 (83) 96 09/11/19 10:41 3 Constitutional: NAD Neurologic: CN 2-12 intact Cardiovascular: RRR Respiratory: CTA Gastrointestinal: S/NT/ND Airway Exam Mallampati Score: Class II MO: limited Neck: flexible TMD: 2fb ROM: limited Teeth: missing Anesthesia Pre-op A/P Labs Hematology Test 09/15/19 05:20 White Blood Count 9.5 K/UL (4.8-10.8) Red Blood Count 2.84 M/UL (4.70-6.10) L Hemoglobin 9.2 G/DL (14.2-18.0) L Hematocrit 26.8 % (42.0-52.0) L Mean Corpuscular Volume 95 FL (80-99) Mean Corpuscular Hemoglobin 32.3 PG (27.0-31.0) H Mean Corpuscular Hemoglobin Concent 34.1 G/DL (32.0-36.0) Red Cell Distribution Width 18.0 % (11.6-14.8) H Platelet Count 232 K/UL (150-450) Mean Platelet Volume 6.6 FL (6.5-10.1) Neutrophils (%) (Auto) 62.6 % (45.0-75.0) Lymphocytes (%) (Auto) 20.7 % (20.0-45.0) Monocytes (%) (Auto) 12.9 % (1.0-10.0) H Eosinophils (%) (Auto) 2.8 % (0.0-3.0) Basophils (%) (Auto) 1.0 % (0.0-2.0) Erythrocyte Sedimentation Rate 60 MM/HR (0-20) H Chemistry Test 09/15/19 05:20 Sodium Level 136 MMOL/L (136-145) Potassium Level 3.7 MMOL/L (3.5-5.1) Chloride Level 103 MMOL/L (98-107) Carbon Dioxide Level 26 MMOL/L (21-32) Anion Gap 7 mmol/L (5-15) Blood Urea Nitrogen 5 mg/dL (7-18) L Creatinine 1.0 MG/DL (0.55-1.30) Estimat Glomerular Filtration Rate > 60 mL/min (>60) Glucose Level 94 MG/DL (74-106) Calcium Level 7.7 MG/DL (8.5-10.1) L Phosphorus Level 3.4 MG/DL (2.5-4.9) Magnesium Level 1.7 MG/DL (1.8-2.4) L Total Bilirubin 2.9 MG/DL (0.2-1.0) H Direct Bilirubin 1.9 MG/DL (0.0-0.3) H Aspartate Amino Transf (AST/SGOT) 145 U/L (15-37) H Alanine Aminotransferase (ALT/SGPT) 109 U/L (12-78) H Alkaline Phosphatase 231 U/L (46-116) H C-Reactive Protein, Quantitative < 0.4 mg/dL (0.00-0.90) Total Protein 6.4 G/DL (6.4-8.2) Albumin 2.0 G/DL (3.4-5.0) L Globulin 4.4 g/dL Albumin/Globulin Ratio 0.5 (1.0-2.7) L Risk Assessment & Plan Assessment: asa3 Plan: mac Status Change Before Surgery: No Pre-Antibiotics Drug: Shari Guzman MD Sep 15, 2019 11:11
[2019-09-15] MEDS ORDERED: fentaNYL 100 mcg/2 mL IV PRN (11:15)
[2019-09-15] MEDS ORDERED: Atropine Inj 1mg/10ml Syr IV PRN (11:15)
[2019-09-15] MEDS ORDERED: DiphenhydrAMINE 50mg/ml Inj IVP PRN (11:15)
[2019-09-15] MEDS ORDERED: Midazolam 2mg/2ml Inj IVP PRN (11:15)
[2019-09-15] MEDS ORDERED: NS 500ML IVPB ONE (11:20)
--- NOTE | 2019-09-15 11:37 | Pre-Procedure Note/Attestation ---
Pre-Procedure Note/Attestation Complete Prior to Procedure Planned Procedure: not applicable Procedure Narrative: colonoscopy Indications for Procedure Pre-Operative Diagnosis: gib Attestation I attest that I discussed the nature of the procedure; its benefits; risks and complications; and alternatives (and the risks and benefits of such alternatives ), prior to the procedure, with the patient (or the patient's legal in home sales representative). I attest that, if there was a reasonable possibility of needing a blood transfusion, the patient (or the patient's legal in home sales representative) was given the [facility] standardized written summary, pursuant to the [place] Blood Safety Act ([place] Health and Safety Code # 1645, as amended). I attest that I re-evaluated the patient just prior to the surgery and that there has been no change in the patient's H&P, except as documented below: Zander Ribeiro MD Sep 15, 2019 11:37
--- NOTE | 2019-09-15 11:54 | Endoscopy Procedure Note ---
Endoscopy Procedure Note General Indication for Procedure: elevated CEA Procedures Performed: colonoscopy Operative Findings/Diagnosis: one polyp Specimen: yes Pt Tolerated Procedure Well: Yes Estimated Blood Loss: none Anesthesia Anesthesiologist: tereso Anesthesia: MAC Inserted Devices Implant(s) used?: No Quality Quality of Bowel Preparation: Good Did scope reach the cecum?: Yes Was there any complications?: No GI Core Measures 50 yrs or older w/o bx or poly: Not Applicable 10yrs. F/U recommended: Not Applicable Zander Ribeiro MD Sep 15, 2019 11:53
[2019-09-15] MEDS ORDERED: PROVENTIL HFA6.7 G1 IH (13:01)
--- NOTE | 2019-09-15 13:54 | Immediate Post-Op Evaluation ---
Immediate Post-Op Evalulation Immediate Post-Op Evalulation Procedure: colonoscopy w/ bx Date of Evaluation: Sep 15, 2019 Time of Evaluation: 12:10 IV Fluids: 300ml 0.9ns Blood Products: none Estimated Blood Loss: negligible Blood Pressure Systolic: 98 Blood Pressure Diastolic: 65 Pulse Rate: 60 Respiratory Rate: 18 O2 Sat by Pulse Oximetry: 99 Temperature (Fahrenheit): 97.5 Pain Score (1-10): 0 Nausea: No Vomiting: No Complications none Patient Status: awake, reacts, patent Hydration Status: adequate Drug: Shari Guzman MD Sep 15, 2019 13:54
--- NOTE | 2019-09-15 13:56 | Pulmonology Progress Note ---
Subjective ROS Limited/Unobtainable: No Constitutional: Reports: no symptoms HEENT: Repors: no symptoms Respiratory: Reports: no symptoms Allergies: Coded Allergies: No Known Allergies (Unverified , 08/20/16) Objective Last 24 Hour Vital Signs Date Time Temp Pulse Resp B/P (MAP) Pulse Ox O2 Delivery O2 Flow Rate FiO2 09/15/19 13:54 60 18 99 09/15/19 12:25 97.2 61 17 112/57 100 Room Air 09/15/19 12:15 58 16 99/56 100 Simple Mask 6 09/15/19 12:05 58 16 96/58 100 Simple Mask 6 09/15/19 12:00 57 20 93/53 100 Simple Mask 6 09/15/19 11:58 97.5 62 22 98/65 100 Simple Mask 6 09/15/19 09:00 Room Air 09/15/19 08:00 98.1 64 18 108/70 (83) 96 09/15/19 06:11 71 121/76 09/15/19 04:00 98.1 71 18 121/76 (91) 99 09/15/19 00:00 98.2 64 18 118/79 (92) 99 09/14/19 21:04 70 120/74 09/14/19 21:00 Room Air 09/14/19 20:00 98.0 70 18 120/74 (89) 98 09/14/19 16:00 98.1 67 20 102/56 (71) 97 09/14/19 14:00 65 106/61 Intake and Output 09/14/19 09/15/19 19:00 07:00 Intake Total 960 ml Output Total 400 ml 1100 ml Balance 560 ml -1100 ml Intake Oral 960 ml Output Urine Total 400 ml 1100 ml # Voids 1 3 # Bowel Movements 4 General Appearance: WD/WN HEENT: normocephalic, atraumatic Respiratory: chest wall non-tender, lungs clear Cardiovascular: normal peripheral pulses, normal rate Abdomen: normal bowel sounds, soft, non tender Genitourinary: normal external genitalia Extremities: no edema, pedal pulses normal Skin: no rash Neurologic: alert, oriented x 3, responsive Musculoskeletal: normal muscle bulk Laboratory Tests 09/15/19 05:20: White Blood Count 9.5, Red Blood Count 2.84L, Hemoglobin 9.2L, Hematocrit 26.8L , Mean Corpuscular Volume 95, Mean Corpuscular Hemoglobin 32.3H, Mean Corpuscular Hemoglobin Concent 34.1, Red Cell Distribution Width 18.0H, Platelet Count 232, Mean Platelet Volume 6.6, Neutrophils (%) (Auto) 62.6, Lymphocytes (%) (Auto) 20.7, Monocytes (%) (Auto) 12.9H, Eosinophils (%) (Auto) 2.8, Basophils (%) (Auto) 1.0, Erythrocyte Sedimentation Rate 60H, Sodium Level 136, Potassium Level 3.7, Chloride Level 103, Carbon Dioxide Level 26, Anion Gap 7, Blood Urea Nitrogen 5L, Creatinine 1.0, Estimat Glomerular Filtration Rate > 60, Glucose Level 94, Calcium Level 7.7L, Phosphorus Level 3.4, Magnesium Level 1.7L, Total Bilirubin 2.9H, Direct Bilirubin 1.9H, Aspartate Amino Transf (AST/SGOT) 145H, Alanine Aminotransferase (ALT/SGPT) 109H, Alkaline Phosphatase 231H, C-Reactive Protein, Quantitative < 0.4, Total Protein 6.4, Albumin 2.0L, Globulin 4.4, Albumin/Globulin Ratio 0.5L Current Medications Medications (Trade) Dose Ordered Sig/Pop Route PRN Reason Start Time Stop Time Status Last Admin Dose Admin Acetaminophen (Tylenol) 650 mg Q4H PRN ORAL Mild Pain (Pain Scale 1-3) 09/15/19 11:15 09/15/19 19:00 Acetaminophen/ Hydrocodone Bitart ([place] 5/325) 1 tab Q6H PRN ORAL For Pain 09/13/19 12:30 09/17/19 12:29 Al Hydroxide/Mg Hydroxide (Mylanta) 15 ml Q1H PRN ORAL gi upset 09/15/19 11:15 09/15/19 19:00 Atropine Sulfate (Atropine) 0.5 mg Q5M PRN IV HR less than 45 BPM 09/15/19 11:15 09/15/19 19:00 Cetylpyridinium Chloride (Cepacol) 1 lozg Q2H PRN CONSTANZA For Cough 09/13/19 14:00 12/12/19 13:59 09/15/19 08:23 Diphenhydramine HCl (Benadryl) 25 mg Q15M PRN IVP Itching 09/15/19 11:15 09/15/19 19:00 Fentanyl Citrate (Sublimaze 100 mcg/2 mL) 25 mcg Q10M PRN IV Moderate Pain (Pain Scale 4-6) 09/15/19 11:15 09/15/19 19:00 Hydralazine HCl (Apresoline) 5 mg Q30M PRN IV SBP>160 /DBP>90 09/15/19 11:15 09/15/19 19:00 Lactulose (Cephulac) 20 gm BID ORAL 09/13/19 18:00 10/13/19 08:59 09/15/19 08:23 Midazolam HCl (Versed 2mg/2ml vial) 1 mg Q15M PRN IVP For Anxiety 09/15/19 11:15 09/15/19 19:00 Ondansetron HCl (Zofran) 4 mg Q1H PRN IVP Nausea & Vomiting 09/15/19 11:15 09/15/19 19:00 Pantoprazole (Protonix) 40 mg DAILY ORAL 09/14/19 09:00 10/12/19 08:59 09/15/19 08:24 Propranolol HCl (Inderal) 10 mg Q8HR ORAL 09/13/19 14:00 10/13/19 13:59 09/15/19 06:11 Rifaximin (Xifaxan) 550 mg EVERY 12 HOURS ORAL 09/13/19 21:00 09/20/19 08:59 09/15/19 08:23 Assessment/Plan Problems: (1) Gastrointestinal bleeding (2) COPD (chronic obstructive pulmonary disease) (3) Anemia (4) ETOH abuse (5) Diabetes mellitus (6) Hepatitis C Assessment/Plan d/w Dr Friedmanosogy, pt needs Colonoscopy CEA is elevated doing better no more bleeding prbc prn dc home today, pt has a place to live Mark Torres MD Sep 15, 2019 13:56
--- NOTE | 2019-09-15 13:57 | 48 Hour Post Anesthesia Eval ---
Post Anesthesia Evaluation Procedure: colonoscopy w/ bx Date of Evaluation: Sep 15, 2019 Time of Evaluation: 12:12 Blood Pressure Systolic: 98 0: 56 Pulse Rate: 56 Respiratory Rate: 18 Temperature (Fahrenheit): 97.5 O2 Sat by Pulse Oximetry: 99 Airway: patent Nausea: No Vomiting: No Pain Intensity: 0 Hydration Status: adequate Cardiopulmonary Status: stable Mental Status/LOC: patient returned to baseline Post-Anesthesia Complications: none Follow-up care needed: N/A Shari Hernandez MD Sep 15, 2019 13:57
--- NOTE | 2019-09-15 14:34 | NUR ---
NURSE NOTES: Patient discharged from the unit stable condition no bleeding from colonoscopy site, no pain VS stable, patient have all the resources given by social media project manager, patient is going to stay with a friend and ride given by a friend. patient has albuterol prescription unable to wait till it is delivered he prefer to worm picker the medication in person from [facility], CN called and verified with [facility] ok pt. to worm picker medication. offered food pt. declined. Pt. verbalized he is aware current situation and he will be safe staying with a friend. IV removed. he ate lunch.
--- NOTE | 2019-09-15 15:49 | Internal Med Progress Note ---
Subjective Date of Service: Sep 15, 2019 Physician Name Alphonse Esqueda Attending Physician Oleg Vital MD Current Medications Medications (Trade) Dose Ordered Sig/Pop Route PRN Reason Start Time Stop Time Status Last Admin Dose Admin Acetaminophen (Tylenol) 650 mg Q4H PRN ORAL Mild Pain (Pain Scale 1-3) 09/15/19 11:15 09/15/19 19:00 Acetaminophen/ Hydrocodone Bitart ([place] 5/325) 1 tab Q6H PRN ORAL For Pain 09/13/19 12:30 09/17/19 12:29 Al Hydroxide/Mg Hydroxide (Mylanta) 15 ml Q1H PRN ORAL gi upset 09/15/19 11:15 09/15/19 19:00 Atropine Sulfate (Atropine) 0.5 mg Q5M PRN IV HR less than 45 BPM 09/15/19 11:15 09/15/19 19:00 Cetylpyridinium Chloride (Cepacol) 1 lozg Q2H PRN CONSTANZA For Cough 09/13/19 14:00 12/12/19 13:59 09/15/19 08:23 Diphenhydramine HCl (Benadryl) 25 mg Q15M PRN IVP Itching 09/15/19 11:15 09/15/19 19:00 Fentanyl Citrate (Sublimaze 100 mcg/2 mL) 25 mcg Q10M PRN IV Moderate Pain (Pain Scale 4-6) 09/15/19 11:15 09/15/19 19:00 Hydralazine HCl (Apresoline) 5 mg Q30M PRN IV SBP>160 /DBP>90 09/15/19 11:15 09/15/19 19:00 Lactulose (Cephulac) 20 gm BID ORAL 09/13/19 18:00 10/13/19 08:59 09/15/19 08:23 Midazolam HCl (Versed 2mg/2ml vial) 1 mg Q15M PRN IVP For Anxiety 09/15/19 11:15 09/15/19 19:00 Ondansetron HCl (Zofran) 4 mg Q1H PRN IVP Nausea & Vomiting 09/15/19 11:15 09/15/19 19:00 Pantoprazole (Protonix) 40 mg DAILY ORAL 09/14/19 09:00 10/12/19 08:59 09/15/19 08:24 Propranolol HCl (Inderal) 10 mg Q8HR ORAL 09/13/19 14:00 10/13/19 13:59 09/15/19 06:11 Rifaximin (Xifaxan) 550 mg EVERY 12 HOURS ORAL 09/13/19 21:00 09/20/19 08:59 09/15/19 08:23 Allergies: Coded Allergies: No Known Allergies (Unverified , 08/20/16) ROS Limited/Unobtainable: No Constitutional: Reports: no symptoms HEENT: Reports: no symptoms Cardiovascular: Reports: no symptoms Respiratory: Reports: no symptoms Gastrointestinal/Abdominal: Reports: no symptoms Genitourinary: Reports: no symptoms Subjective 64 YO M admitted with hematemesis. Now esophageal varices. S/P endoscopy with banding 09/11/19. Cover for Int med-Dr Vital. Med/surg. S/P Colonoscopy 09/15/19 Objective Last Vital Signs Date Time Temp Pulse Resp B/P (MAP) Pulse Ox O2 Delivery O2 Flow Rate FiO2 09/15/19 13:57 56 18 99 09/15/19 12:25 97.2 112/57 Room Air 09/15/19 12:15 6 Laboratory Tests Test 09/15/19 05:20 White Blood Count 9.5 K/UL (4.8-10.8) Red Blood Count 2.84 M/UL (4.70-6.10) L Hemoglobin 9.2 G/DL (14.2-18.0) L Hematocrit 26.8 % (42.0-52.0) L Mean Corpuscular Volume 95 FL (80-99) Mean Corpuscular Hemoglobin 32.3 PG (27.0-31.0) H Mean Corpuscular Hemoglobin Concent 34.1 G/DL (32.0-36.0) Red Cell Distribution Width 18.0 % (11.6-14.8) H Platelet Count 232 K/UL (150-450) Mean Platelet Volume 6.6 FL (6.5-10.1) Neutrophils (%) (Auto) 62.6 % (45.0-75.0) Lymphocytes (%) (Auto) 20.7 % (20.0-45.0) Monocytes (%) (Auto) 12.9 % (1.0-10.0) H Eosinophils (%) (Auto) 2.8 % (0.0-3.0) Basophils (%) (Auto) 1.0 % (0.0-2.0) Erythrocyte Sedimentation Rate 60 MM/HR (0-20) H Sodium Level 136 MMOL/L (136-145) Potassium Level 3.7 MMOL/L (3.5-5.1) Chloride Level 103 MMOL/L (98-107) Carbon Dioxide Level 26 MMOL/L (21-32) Anion Gap 7 mmol/L (5-15) Blood Urea Nitrogen 5 mg/dL (7-18) L Creatinine 1.0 MG/DL (0.55-1.30) Estimat Glomerular Filtration Rate > 60 mL/min (>60) Glucose Level 94 MG/DL (74-106) Calcium Level 7.7 MG/DL (8.5-10.1) L Phosphorus Level 3.4 MG/DL (2.5-4.9) Magnesium Level 1.7 MG/DL (1.8-2.4) L Total Bilirubin 2.9 MG/DL (0.2-1.0) H Direct Bilirubin 1.9 MG/DL (0.0-0.3) H Aspartate Amino Transf (AST/SGOT) 145 U/L (15-37) H Alanine Aminotransferase (ALT/SGPT) 109 U/L (12-78) H Alkaline Phosphatase 231 U/L (46-116) H C-Reactive Protein, Quantitative < 0.4 mg/dL (0.00-0.90) Total Protein 6.4 G/DL (6.4-8.2) Albumin 2.0 G/DL (3.4-5.0) L Globulin 4.4 g/dL Albumin/Globulin Ratio 0.5 (1.0-2.7) L Intake and Output 09/14/19 09/15/19 19:00 07:00 Intake Total 960 ml Output Total 400 ml 1100 ml Balance 560 ml -1100 ml Intake Oral 960 ml Output Urine Total 400 ml 1100 ml # Voids 1 3 # Bowel Movements 4 Objective PHYSICAL EXAMINATION: GENERAL: Patient is well-developed, well-nourished male, in no apparent distress. HEENT: Eyes, pupils are equal and responsive to light and accommodation. Extraocular movements are intact. NECK: Supple without lymphadenopathy. CHEST: Lungs are clear to auscultation bilaterally without wheezes or rales. CARDIOVASCULAR: Tachycardic, regular rhythm. S1, S2 normal without murmurs, rubs, or gallops. ABDOMEN: Soft, nontender, nondistended. Positive bowel sounds. No evidence of hepatosplenomegaly. Currently, no rebound or guarding noted. EXTREMITIES: Negative for clubbing, cyanosis, or edema. RECTAL/GENITAL: Not performed. NEUROLOGIC: Cranial nerves II through XII are grossly intact without focal deficits. Motor strength is 5/5 bilaterally. Deep tendon reflexes are 2+ plantar. Assessment/Plan Assessment/Plan ASSESSMENT: This is a 64-year-old male. 1. Hematemesis. 2. Upper GI hemorrhage. 3. Alcoholic cirrhosis of liver. 4. Anemia of acute blood loss. 5. Diabetes type 2. 6. Hypertension. 7. Chronic obstructive pulmonary disease. 8. Elevated liver function tests. 9. Homelessness. 10 Esophageal varices. TREATMENT: 1. Hematemesis/upper gastrointestinal hemorrhage. A Gastroenterology consultation has been obtained with Dr. Zander Ribeiro. Continue intravenous Protonix, lactulose and Xifaxan 2. Alcoholic cirrhosis of liver. 3. Anemia of acute blood loss. S/P transfusion 2 units of packed RBCs. 4. Diabetes type 2. NovoLog sliding scale has been instituted. 5. Hypertension. Patient is currently hypotensive. 6. Chronic obstructive pulmonary disease. A Pulmonary consultation has been obtained with Dr. Mark Torres. We will follow recommendations of Pulmonary. 7. Elevated liver function tests. 8. Homelessness. 9. S/P endoscopy 09/11/19=esophageal varices, S/P banding 10. S/P Colonoscopy 09/15/19 11. Discharge home today; F/U Dr Ribeiro for repeat EGD in 4 weeks Alphonse Esqueda MD Sep 15, 2019 15:49
--- NOTE | 2019-09-15 20:00 | Procedure Note ---
DATE OF PROCEDURE: 09/15/2019 SURGEON: Zander Ribeiro MD. REFERRING PHYSICIAN: Oleg Vital MD. PROCEDURE: Colonoscopy with biopsy. ANESTHESIA: Per Dr. Jaquez. INSTRUMENT: Olympus adult flexible colonoscope. INDICATION: Elevated CEA, anemia. The procedure, risks, benefits, and possible consequences, including hemorrhage, aspiration, perforation and infection, and alternative treatments, were explained to the patient/legal guardian by Dr. Zander Ribeiro and the patient/legal guardian understood and accepted these risks. DESCRIPTION OF PROCEDURE: After informed consent was obtained and the patient was adequately sedated, first rectal exam was performed, which was positive for internal hemorrhoids. Then, the scope was advanced from the rectum to the cecum documented by the appendix orifice, ileocecal valve, and right upper quadrant palpation. Quality of prep overall was good. The patient had one polyp in the transverse colon 1 cm, this polyp was removed with cold biopsy forceps technique. The rest of the examination grossly looked within normal limit. Retroflexion of rectum showed evidence of medium-sized internal hemorrhoids. SUMMARY OF FINDINGS: 1. One colonic polyp removed. See above for details. 2. Internal hemorrhoids. RECOMMENDATIONS: Follow up biopsy results and treat accordingly. We recommend repeat colonoscopy in 5 years. I want to thank, Dr. Vital, for this kind referral. Zander Ribeiro M.D. DR: Mateus JOB#: [id number] CC: Oleg Vital M.D.; Fax#: [phone]
--- NOTE | 2019-09-16 12:55 | NUR ---
*-* INSURANCE *-* UPDATED CLINICALS AND DISCHARGE INSTRUCTIONS FAXED NO DISCHARGE SUMMARY IN THE SYSTEM: CORDELIA CHAMPION P:[phone] F:[phone] (FAX ALL CLINICALS HERE AND TO [facility] [phone]
--- NOTE | 2019-09-16 13:20 | CDS Physician Query ---
PLEASE COMPLETE DOCUMENT BEFORE SIGNING Dear Dr. Alphonse Esqueda M.D. Date: 09/16/2019 [employer]/CDS Name: Tommy Chambers [employer]/CDS Phone No.: [phone] CLINICAL DOCUMENTATION STATES: "64-year-old male with history of alcohol use. Patient is homeless. Patient had 3 episodes of vomiting bright red blood starting last evening. Patient presented to [place] emergency room. Patient was noted to have vomited bright red blood. " ASSESSMENT: Hematemesis.Upper GI hemorrhage.Alcoholic cirrhosis of liver. Anemia of acute blood loss.Diabetes type 2. Hypertension.Chronic obstructive pulmonary disease.Elevated liver function tests. Homelessness. CLINICAL FINDINGS SHOW: BMI 23.3 kg/m2, Calcium level (09/09) - 8.1 mg/dl, Albumin (09/09) - 2.3 g/dl Please select the most appropriate option: [] Mild [] Moderate [X] Protein/Calorie Malnutrition [] Protein Malnutrition [] Other [] Unable to determine [] Not Applicable Condition Present on Admission: [] Yes [] No [ ] Unable to determine Please also document in your Progress Notes and/or Discharge Summary and indicate if the condition was present on admission. Physician signature Date MTDD
--- NOTE | 2019-09-17 09:57 | Discharge Summary ---
Discharge Summary Discharge Summary _ DATE OF ADMISSION: 09/10/2019 DATE OF DISCHARGE: 09/15/2019 DISCHARGED BY: Dr. Vital REASON FOR ADMISSION: 64 years old male, homeless, with past medical history of diabetes mellitus, alcohol abuse, presented to emergency department after vomiting blood. Patient reported vomiting blood the night prior to presentation. Patient also complained of generalized weakness. Patient reported that he might have passed out. He denied any chest pain or shortness of breath. He reported upper abdominal pain. No diarrhea or constipation. Upon evaluation vital signs were stable. Laboratory work-up revealed mild leukocytosis WBC 11.8, hemoglobin 7.5, hematocrit 22.7, platelet count 201. Stable electrolytes and renal parameters. Lactic acid 2.5. Total bilirubin 3.3, direct bilirubin 2.0. AST 110, ALT 60. Troponin negative. Albumin 2.3. Urine toxicology screen was positive for cocaine. Serum alcohol level was negative . CT of the head revealed age-related senescent changes, no acute intracranial abnormality. CT of the abdomen and pelvis revealed cirrhotic liver. No space-occupying lesion noted. Mild increased lucency in the colon. Chest x-ray demonstrated no acute cardiopulmonary pathology. Patient admitted for GI hemorrhage, anemia, sepsis, transaminitis. Patient pancultured , patient started on Protonix and octreotide drips. Patient was typed and crossed. Patient started on empiric antibiotics and IV fluids with banana bag, and subsequently admitted for further management. CONSULTANTS: pulmonary/critical care Dr. Torres GI specialist Dr. Ribeiro [facility] COURSE: Patient admitted to medical surgical floor and continued on Protonix and octreotide drip along with IV fluids with banana bag. Patient started on empiric antibiotics. GI specialist seen and evaluated patient. Patient undergone EGD with finding of esophageal banding, status post banding x3. Patient started on propranolol . Biopsy of gastric antrum revealed active chronic gastritis in the background of portal hypertensive gastropathy. No H. pylori was identified. Biopsy of transverse colon polyp revealed tubular adenoma. No evidence of high- grade dysplasia or malignancy. Protonix drip changed to IV Protonix . Patient undergone transfusion of 2 units of packed red blood cells. Patient slowly started on clear liquid diet as tolerated. Hepatitis panel revealed evidence of hepatitis C. GI specialist recommended outpatient follow up for hepatitis C treatment. Diet was advanced as tolerated. LFT were closely monitored. Ammonia was elevated, and patient was started on lactulose and rifaximin. CEA within normal limits-8. Electrolytes corrected as needed /i.e.potassium was replaced. Supplemental oxygen was on board as needed to keep sat above 90%. Pulse oximetry remained stable on room air. Nebulizing treatment provided as needed. No signs of COPD exacerbation. Blood cultures were negative. Urine culture revealed mixed urogenital contaminants. Initial leukocytosis resolved, likely was reactive. Blood sugar was closely monitored and remained stable. Supportive care provided. Pain management was addressed. Per nutritional consult, patient was at risk for malnutrition protein . Dietary recommendation implemented in plan of care. Patient subsequently undergone colonoscopy with biopsy , status post removal of one colonic polyp. Internal hemorrhoids noted. GI specialist recommended follow-up with the biopsy results and treat accordingly, repeat colonoscopy in 5 years. Diet was advanced as tolerated. Patient was able to tolerate diet. Bowel regimen instituted. Patient clinically stabilized and was ready for discharge. Patient will stay with his friend. The treating physician and consultants assessed and agreed that patient was medically stable for discharge to an outpatient disposition. All medications were filled inin the pharmacy prior to discharge. FINAL DIAGNOSES: Upper GI hemorrhage Alcoholic cirrhosis of the liver Anemia of acute blood loss, requiring blood transfusion ETOH abuse Status post endoscopy with finding of esophageal varices, status post banding x3 Status post colonoscopy 09/14 with finding of colonic polypx1, status post biopsy ; internal hemorrhoids Gastritis Hepatitis C Diabetes mellitus COPD Hypokalemia Transaminitis DISCHARGE MEDICATIONS: See Medication Reconciliation list. DISCHARGE INSTRUCTIONS: Patient was discharged to outpatient disposition. Patient to follow-up with his primary care provider in 1 to 2 weeks. Patient was advised to go to the nearest emergency room if the bleeding recurs. Patient was recommended to repeat EGD in 4 weeks. Nancy Freitas NP Sep 17, 2019 09:57
== END 2019-09-15 15:25 | disposition home or self-care (01) | DRG 242 ==
LOC: EDBD 12:07 → EMR 12:22 → 2W 14:08 → EDBEDREQ 15:39 → 3E 09-13 12:10
PROC: 0DB78ZX Excision of Stomach, Pylorus, Via Natural or Artificial Opening Endoscopic, Diagnostic (ICD-10-PCS; principal; 2019-09-11 10:23)
PROC: 06L38CZ Occlusion of Esophageal Vein with Extraluminal Device, Via Natural or Artificial Opening Endoscopic (ICD-10-PCS; 2019-09-11 10:23)
PROC: 0DBL8ZZ Excision of Transverse Colon, Via Natural or Artificial Opening Endoscopic (ICD-10-PCS; 2019-09-15)
DX: I85.01 Esophageal varices with bleeding (principal); D62 Acute posthemorrhagic anemia; K70.30 Alcoholic cirrhosis of liver without ascites; I10 Essential (primary) hypertension; J44.9 Chronic obstructive pulmonary disease, unspecified; E11.9 Type 2 diabetes mellitus without complications; F10.10 Alcohol abuse, uncomplicated; Z59.0 Homelessness; B19.20 Unspecified viral hepatitis C without hepatic coma; F17.200 Nicotine dependence, unspecified, uncomplicated; K29.70 Gastritis, unspecified, without bleeding; K63.5 Polyp of colon; K64.8 Other hemorrhoids; R97.0 Elevated carcinoembryonic antigen [CEA]; E87.6 Hypokalemia; R74.0 Nonspecific elevation of levels of transaminase and lactic acid dehydrogenase [LDH]; D63.8 Anemia in other chronic diseases classified elsewhere
CPT/HCPCS: 36415; 70450; 71045; 74176; 76700; 80048; 80053; 80307; 81003; 82140; 82248; 82378; 82550; 82607; 82746; 82803; 83540; 83550; 83605; 83615; 83690; 83735; 84100; 84484; 85007; 85025; 85044; 85060; 85610; 85651; 85730; 86140; 86705; 86709; 86803; 86850; 86900; 86901; 86920; 87040; 87081; 87086; 87340; 93005; 94003; 94150; 96365; 96366; 96368; 96375; 99291; G0480; J3430; J7030; J8499

== ENCOUNTER 2019-10-12 01:32 | Emergency (ER) | payer MEDICARE, OTHER ==
[~2019-10-12] VITALS: Ht 170.2 cm; Wt 63.5 kg
[~2019-10-12 01:32] MED LIST changes: +PROVENTIL HFA6.7 G1 IH
--- NOTE | 2019-10-12 01:36 | NUR ---
ED Nurse Note: Pt brought to ED from streets by RA 68. Pt c/o generalized body pain. Pt has hx of DM, non-compliant with medications, hasn't checked his BS in weeks or taken medication. Pt states the pain is all over. BS 256 in field. VSS, pt placed on vehicle monitor technician
[2019-10-12 01:40] VITALS: BP 169/81
--- NOTE | 2019-10-12 02:01 | Emergency Room Report ---
History of Present Illness General Chief Complaint: Pain Present Illness HPI This a 64-year-old male with a history of diabetes and high blood pressure. He also is an alcoholic and drug abuser. He presents with chief complaint of weakness. Onset today. He said he felt weak especially try to get up and walk. Is a recurrent issue for him. He was just admitted here recently and had a GI bleed. He had endoscopy which show bleeding ulcer and had banding done. He was just recently discharged 3 weeks ago. Denies any fever chills but denies any chest pain. Denies any trauma. Has generalized body pain. Pain is 8 out of 10. Allergies: Coded Allergies: No Known Allergies (Unverified , 08/20/16) COVID-19 Screening Contact w/high risk pt: No Recent Travel to affected area: No Experienced COVID-19 symptoms?: No COVID-19 symptoms experienced: Fever (T>100.4F or >38C), Shortness of Breath, Cough COVID-19 Testing performed TRANSFER WORKER: No Patient History Past Medical History: see triage record, old chart reviewed, DM, HTN Past Surgical History: other Pertinent Family History: none Social History: Reports: smoking, alcohol use, drug use Immunizations: other Reviewed Nursing Documentation: PMH: Agreed; PSxH: Agreed Nursing Documentation-PMH Hx Cardiac Problems: Yes - htn Hx Hypertension: Yes Hx Asthma: Yes Hx COPD: Yes Hx Diabetes: Yes Hx Neurological Problems: No Review of Systems Constitutional: Reports: weakness Eye: Denies: eye pain, blurred vision ENT: Denies: ear pain, nose congestion, throat swelling Respiratory: Denies: cough, shortness of breath Cardiovascular: Denies: chest pain, palpitations Gastrointestinal: Denies: abdominal pain, diarrhea, nausea, vomiting Musculoskeletal: Denies: back pain, joint pain Skin: Denies: rash Neurological: Denies: headache, numbness Endocrine: Denies: increased thirst, increased urine Hematologic/Lymphatic: Denies: easy bruising All Other Systems: negative except mentioned in HPI Physical Exam Vital Signs Date Time Temp Pulse Resp B/P (MAP) Pulse Ox O2 Delivery O2 Flow Rate FiO2 10/12/19 01:34 97.9 100 16 169/81 (110) 95 Room Air Vitals with high blood pressure Sp02 EP Interpretation: reviewed, normal General Appearance: well appearing, no apparent distress, alert Head: normocephalic, atraumatic Eyes: bilateral eye PERRL, bilateral eye EOMI ENT: hearing grossly normal, normal pharynx Neck: full range of motion, supple, no meningismus Respiratory: chest non-tender, lungs clear, normal breath sounds Cardiovascular #1: regular rate, rhythm, no murmur Gastrointestinal: normal bowel sounds, non tender, no mass, no organomegaly, no bruit, non-distended Musculoskeletal: back normal, normal range of motion, gait/station normal Psychiatric: mood/affect normal Procedures Critical Care Time Critical Care Time Critical care is mandated in this patient who presented with severe anemia requiring blood transfusion. Patient require my urgent intervention to attenuate the risks of metabolic collapse which may lead to cardiovascular collapse and . Critical care time is 35 minutes excluding any reportable procedure. Critical care time included evaluation, multiple reevaluation, looking at old charts, interpreting laboratory and diagnostic data, discussing case with patient and family and consultants, and charting. Medical Decision Making Diagnostic Impression: Primary Impression: Anemia Qualified Codes: D64.9 - Anemia, unspecified Additional Impressions: Alcohol abuse Cocaine abuse ER Course Patient presents with generalized weakness and pain. His hemoglobin is very low. He was admitted here last month for upper GI bleed secondary to esophageal varices requiring banding. Probably secondary to his alcohol abuse. He denies any active bleeding at this moment but hemoglobin is low. Vital signs are stable. 2 units of blood ordered. Patient will be transferred to [facility]. I discussed the case with Dr. Cantu who accepted the patient for transfer. EKG Diagnostic Results Rate: normal Rhythm: NSR ST Segments: no acute changes Rhythm Strip Diag. Results EP Interpretation: yes Rate: 88 Rhythm: NSR, no PVC's, no ectopy Last Vital Signs Date Time Temp Pulse Resp B/P (MAP) Pulse Ox O2 Delivery O2 Flow Rate FiO2 10/12/19 01:34 97.9 100 16 169/81 (110) 95 Room Air Status: improved Disposition: SHORT-TERM HOSP Condition: Stable Referrals: CORDELIA CHAMPION,REFERRING (PCP) Ronnie Easley MD Oct 12, 2019 02:01
[2019-10-12 02:29] LABS: ANION GAP 9 mmol/L (5-15); BLOOD UREA NITROGEN 17 mg/dL (7-18); CALCIUM 8.2 MG/DL (8.5-10.1); CARBON DIOXIDE 23 MMOL/L (21-32); CHLORIDE 105 MMOL/L (98-107); CREATININE 1.4 MG/DL (0.55-1.30); SODIUM 137 MMOL/L (136-145)
--- NOTE | 2019-10-12 02:30 | NUR ---
ED Nurse Note: IV lines started at left forearm and medial Ac, 20G. Type and screen drawn.
[2019-10-12 02:40] LABS: ALANINE AMINOTRANSFERASE 47 U/L (12-78); ALBUMIN 2.3 G/DL (3.4-5.0); ALBUMIN/GLOBULIN RATIO 0.4 (1.0-2.7); ALKALINE PHOSPHATASE 323 U/L (46-116); ASPARTATE AMINO TRANSFERASE 111 U/L (15-37); BILIRUBIN,TOTAL 2.2 MG/DL (0.2-1.0)
[2019-10-12 02:46] LABS: HEMATOCRIT 21.2 % (42.0-52.0); MEAN CORPUSCULAR VOLUME 104 FL (80-99); PLATELET COUNT 209 K/UL (150-450); RED BLOOD COUNT 2.03 M/UL (4.70-6.10); WHITE BLOOD COUNT 15.1 K/UL (4.8-10.8)
[2019-10-12 02:48] LABS: HEMOGLOBIN 6.4 G/DL (14.2-18.0)
[2019-10-12 02:57] LABS: BILIRUBIN,DIRECT 1.6 MG/DL (0.0-0.3)
[2019-10-12] MEDS ORDERED: Pantoprazole Inj IVP ONE (03:00)
[2019-10-12] MEDS ORDERED: Pantoprazole Inj ONE (03:34)
--- NOTE | 2019-10-12 03:35 | NUR ---
ED Nurse Note: Patient resting comfortably with no s/s of acute distress. Consulted ERMD for order to transfuse. Will continue to monitor for blood bank readiness.
[2019-10-12 03:36] LABS: APPEARANCE,URINE CLEAR; BILIRUBIN, URINE NEGATIVE (NEGATIVE); GLUCOSE, URINE (UA) 2+ (NEGATIVE); KETONES,URINE 1+ (NEGATIVE); LEUKOCYTE ESTERASE ,URINE 1+ (NEGATIVE); NITRITE,URINE NEGATIVE (NEGATIVE); PH,URINE 5 (4.5-8.0); PROTEIN,URINE 1+ (NEGATIVE); UROBILINOGEN,URINE 8 MG/DL (0.0-1.0)
[2019-10-12 03:43] LABS: COLOR,URINE YELLOW
[2019-10-12 03:47] VITALS: BP 134/67
--- NOTE | 2019-10-12 04:45 | NUR ---
ED Nurse Note: Blood infusion started, current vitals:L T: 99.1, RR: 17, BP: 127/67, KS: 99. Will continue to monitor closely for the next 15 minutes.
--- NOTE | 2019-10-12 05:00 | NUR ---
ED Nurse Note: PAtient tolerating blood transfusion well, current vital signs: T: 97.6, RR: 18, TX: 93, O2Sat: 100, RA, BP: 127/52. Jhonatan increase rate from 100/ml/hr to 150 ml/hr and continue to monitor.
--- NOTE | 2019-10-12 06:00 | NUR ---
ED Nurse Note: Patient sleeping soundly with no s/s of acute distress. Will continue to monitor infusion.
--- NOTE | 2019-10-12 06:50 | NUR ---
ED Nurse Note: Second bag started in lieu of transport arrival. Vital signs within normal range.
--- NOTE | 2019-10-12 07:10 | NUR ---
ED Nurse Note: Armida exhibited no adverse raeciton to second bag. RAte increased from 150/ml/hr to 200/ml/hr in lieu of transport to [facility].
--- NOTE | 2019-10-12 07:10 | NUR ---
ED Nurse Note: Received report from GUS Romero. Observed patient in bed, awake, aox4, verbally responsive. Second bag of blood transfusion started by PM nurse infusing at 200ml/hr, no adverse reaction noted at this time; will continue to assess and monitor. Patient is afebrile, temp 97.9 orally, BP 105/68, HR 98, patient is saturating 98% on room air, no respiratory distress noted. Breathing even and unlabored. Safety measures in place, bed is locked and side rails up x2. All needs attended to. Instructed to call for assistance, verbalized understanding. Will continue to monitor.
--- NOTE | 2019-10-12 07:15 | NUR ---
ED Nurse Note: Received patient with PIV on left wrist 20g, and PIV on left AC 20g. Both are intact and patent.
--- NOTE | 2019-10-12 07:18 | NUR ---
ED Nurse Note: Called and rendered report to Mirna WEBER at [place]. Patient will be assign to Dr. Meredith, bed 664-1. to be picked up by [facility] soon.
--- NOTE | 2019-10-12 07:30 | NUR ---
ED Nurse Note: BLS arrived at bedside, unable to send patient at this time d/t blood transfusion ongoing. Charge nurse aware and rescheduled knot picker cloth after blood transfusion. Will continue to monitor patient.
[2019-10-12 07:41] VITALS: BP 105/68
--- NOTE | 2019-10-12 07:42 | NUR ---
ED Nurse Note: Blood sugar checked, 133mg/dL. Reported to GUS Bradley from [facility]. Informed and made aware that patient will be picked up by ambulance after second bag of blood.
[2019-10-12 08:45] VITALS: BP 119/70
--- NOTE | 2019-10-12 08:55 | NUR ---
ED Nurse Note: Blood transfusion completed; no s/s of adverse reaction. BP 126/73 HR 76 Temp 99 orally RR 16 SpO2 100% on room air. Awaiting for ambulance at this time.
--- NOTE | 2019-10-12 09:00 | NUR ---
ER DISCHARGE NOTE: Patient is cleared to be discharged to [facility] per ERMD, pt is aox4, on room air, with stable vitals signs. Patient was picked up by [facility] ambulance. Discharge packet given to ambulance personnel.
[2019-10-12 09:04] VITALS: BP 126/73
== END 2019-10-12 09:00 | disposition short-term general hospital (02) ==
LOC: EDBD 01:32 → EDUNIT# 01:32 → EMR 01:48 → EDBEDREQSVC 05:44 → EMR 09:00
DX: D64.9 Anemia, unspecified (principal); F10.10 Alcohol abuse, uncomplicated; F14.10 Cocaine abuse, uncomplicated; E11.9 Type 2 diabetes mellitus without complications; F17.200 Nicotine dependence, unspecified, uncomplicated; I10 Essential (primary) hypertension; J44.9 Chronic obstructive pulmonary disease, unspecified
CPT/HCPCS: 36415; 36430; 80053; 81001; 82248; 84484; 85007; 85025; 86850; 86900; 86901; 86920; 93005; 96374; 99291; C9113; P9016

== ENCOUNTER 2019-12-23 08:31 | Emergency (ER) | payer MEDICARE, MEDICAID ==
[~2019-12-23] VITALS: Ht 170.2 cm; Wt 70.3 kg
[2019-12-23 08:40] VITALS: BP 138/84
[2019-12-23] MEDS ORDERED: Solu-MEDROL 125mg Inj IVP ONE (08:45)
--- NOTE | 2019-12-23 08:52 | Emergency Room Report ---
History of Present Illness General Chief Complaint: Abdominal Pain Source: Patient Present Illness HPI Disclaimer: Please note that this report is being documented using [employer] technology. This can lead to erroneous entry secondary to incorrect interpretation by the dictating instrument. HPI: 54-year-old male reported history of hypertension, diabetes, hepatitis C, smoker presented for cough. He reports a cough for the past few days. Mildly productive. Associated with abdominal pain with coughing and posttussive emesis. Patient reportedly seen here recently for the same, apparently had a negative COVID however I cannot find his old record. Presented by EMS. 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 COVID-19 Screening: Negative COVID-19 COVID-19 Testing Source: NASOPHARYNGEAL Patient History Reviewed Nursing Documentation: PMH: Agreed; PSxH: Agreed Nursing Documentation-PMH Past Medical History: No History, Except For Hx Hypertension: Yes Hx Diabetes: Yes Review of Systems All Other Systems: negative except mentioned in HPI Physical Exam Vital Signs Date Time Temp Pulse Resp B/P (MAP) Pulse Ox O2 Delivery O2 Flow Rate FiO2 12/23/19 08:25 97.9 93 19 146/81 (102) 99 Room Air Sp02 EP Interpretation: reviewed, normal General Appearance: well appearing, mild distress - Actively coughing Head: normocephalic, atraumatic Eyes: bilateral eye PERRL, bilateral eye EOMI ENT: hearing grossly normal, moist mucus membranes Neck: full range of motion, supple Respiratory: no rhonchi, no respiratory distress, no retraction, wheezing - Expiratory wheeze noted Cardiovascular #1: normal peripheral pulses, regular rate, rhythm, no murmur Gastrointestinal: non tender, soft, non-distended, no guarding Neurologic: alert, oriented x3, no focal defects Skin: normal color, warm/dry Medical Decision Making Diagnostic Impression: Primary Impression: Bronchospasm with bronchitis, acute ER Course MDM: Differential included pneumonia, COVID-19, reactive airway disease Clinical course-IV, chest x-ray, cardiac monitoring, Solu-Medrol magnesium, IV fluids given COVID-19 testing was negative. Chest x-ray did not demonstrate any acute infiltrate. Laboratory studies showed no leukocytosis. LFTs mildly elevated T bili elevated. Initially patient was registered under a different name however we were able to find his appropriate name and his previous record. He was here 3 days ago. Admitted or actually transferred to outside facility for anemia requiring blood transfusion. He states he was discharged about 2 days ago. He denied any melena or hematochezia or hematemesis. He denies any recent drinking. He does have a history of cirrhosis. I did do an ultrasound in the ER which did not demonstrate any acute gallbladder disease. Low suspicion for cholecystitis at this time. Again he had mild bronchospasm. He denied any history of asthma or COPD to me. After magnesium Solu-Medrol and breathing treatment patient improved. Resting comfortably. Cough improved. No active vomiting. Charged home with albuterol and a short course of steroids I do think he would benefit from steroids due to his wheezing. Patient was advised to abstain from smoking as well. Stable for discharge. Labs - Laboratory Tests Test 12/23/19 09:00 12/23/19 11:20 White Blood Count 10.0 K/UL (4.8-10.8) Red Blood Count 3.12 M/UL (4.70-6.10) L Hemoglobin 8.5 G/DL (14.2-18.0) L Hematocrit 25.8 % (42.0-52.0) L Mean Corpuscular Volume 83 FL (80-99) Mean Corpuscular Hemoglobin 27.1 PG (27.0-31.0) Mean Corpuscular Hemoglobin Concent 32.8 G/DL (32.0-36.0) Red Cell Distribution Width 17.2 % (11.6-14.8) H Platelet Count 301 K/UL (150-450) Mean Platelet Volume 7.1 FL (6.5-10.1) Neutrophils (%) (Auto) 66.0 % (45.0-75.0) Lymphocytes (%) (Auto) 16.9 % (20.0-45.0) L Monocytes (%) (Auto) 13.8 % (1.0-10.0) H Eosinophils (%) (Auto) 1.6 % (0.0-3.0) Basophils (%) (Auto) 1.6 % (0.0-2.0) Sodium Level 141 MMOL/L (136-145) Potassium Level 3.2 MMOL/L (3.5-5.1) L Chloride Level 110 MMOL/L (98-107) H Carbon Dioxide Level 25 MMOL/L (21-32) Anion Gap 6 mmol/L (5-15) Blood Urea Nitrogen 8 mg/dL (7-18) Creatinine 1.0 MG/DL (0.55-1.30) Estimated Glomerular Filtration Rate > 60 mL/min (>60) Glucose Level 78 MG/DL (74-106) Lactic Acid Level 1.20 mmol/L (0.4-2.0) Calcium Level 7.7 MG/DL (8.5-10.1) L Magnesium Level 1.8 MG/DL (1.8-2.4) Total Bilirubin 2.6 MG/DL (0.2-1.0) H Direct Bilirubin 2.2 MG/DL (0.0-0.3) H Aspartate Amino Transferase (AST) 112 U/L (15-37) H Alanine Aminotransferase (ALT) 77 U/L (12-78) Alkaline Phosphatase 299 U/L (46-116) H Troponin I 0.026 ng/mL (0.000-0.056) Pro-B-Type Natriuretic Peptide 129 pg/mL (0-125) H Total Protein 7.5 G/DL (6.4-8.2) Albumin 2.0 G/DL (3.4-5.0) L Globulin 5.5 g/dL Albumin/Globulin Ratio 0.4 (1.0-2.7) L Urine Color Brown Urine Appearance Clear Urine pH 6 (4.5-8.0) Urine Specific Comstock 1.020 (1.005-1.035) Urine Protein Negative (NEGATIVE) Urine Glucose (UA) Negative (NEGATIVE) Urine Ketones Negative (NEGATIVE) Urine Blood Negative (NEGATIVE) Urine Nitrite Negative (NEGATIVE) Urine Bilirubin 2+ (NEGATIVE) H Urine Ictotest Negative (NEGATIVE) Urine Urobilinogen 12 MG/DL (0.0-1.0) H Urine Leukocyte Esterase 1+ (NEGATIVE) H Urine RBC 0-2 /HPF (0 - 0) H Urine WBC 0-2 /HPF (0 - 0) Urine Squamous Epithelial Cells Few /LPF (NONE/OCC) Urine Bacteria Occasional /HPF (NONE) Microbiology Date/Time Source Procedure Growth Status 12/23/19 09:00 Nasopharynx SARS-CoV-2 RdRp Gene Assay - Final Complete EKG Diagnostic Results EKG Time: 08:59 Rate: normal Rhythm: NSR Other Impression PVCs Chest X-Ray Diagnostic Results Chest X-Ray Diagnostic Results : Chest X-Ray Ordered: Yes # of Views/Limited/Complete: 1 View Indication: Shortness of Breath EP Interpretation: Yes Interpretation: no consolidation, no effusion, no pneumothorax Impression: No acute disease Electronically Signed by: Francisco Chapa MD Last Vital Signs Date Time Temp Pulse Resp B/P (MAP) Pulse Ox O2 Delivery O2 Flow Rate FiO2 12/23/19 08:25 97.9 93 19 146/81 (102) 99 Room Air Status: improved Disposition: HOME, SELF-CARE Scripts Prednisone* (PREDNISONE*) 20 Mg Tablet 40 MG ORAL DAILY, #8 TAB Prov: Francisco Chapa M.D. 12/23/19 Albuterol Sulfate* (Albuterol Sulfate Hfa*) 8.5 Gm Hfa.aer.ad 2 PUFF INH Q6H, #1 INH Prov: Francisco Chapa M.D. 12/23/19 Francisco Chapa M.D. Dec 23, 2019 08:52
[2019-12-23 09:19] LABS: BASOPHILS % (AUTO) 1.6 % (0.0-2.0); EOSINOPHILS % (AUTO) 1.6 % (0.0-3.0); HEMATOCRIT 25.8 % (42.0-52.0); HEMOGLOBIN 8.5 G/DL (14.2-18.0); LYMPHOCYTES % (AUTO) 16.9 % (20.0-45.0); MEAN CORPUSCULAR VOLUME 83 FL (80-99); MONOCYTES % (AUTO) 13.8 % (1.0-10.0); PLATELET COUNT 301 K/UL (150-450); RED BLOOD COUNT 3.12 M/UL (4.70-6.10); RED CELL DISTRIBUTION WIDTH 17.2 % (11.6-14.8)
[2019-12-23 09:30] LABS: ANION GAP 6 mmol/L (5-15); BLOOD UREA NITROGEN 8 mg/dL (7-18); CALCIUM 7.7 MG/DL (8.5-10.1); CARBON DIOXIDE 25 MMOL/L (21-32); CHLORIDE 110 MMOL/L (98-107); POTASSIUM 3.2 MMOL/L (3.5-5.1); SODIUM 141 MMOL/L (136-145)
[2019-12-23 09:45] LABS: ALANINE AMINOTRANSFERASE 77 U/L (12-78); ALBUMIN/GLOBULIN RATIO 0.4 (1.0-2.7); ALKALINE PHOSPHATASE 299 U/L (46-116); ASPARTATE AMINO TRANSFERASE 112 U/L (15-37); BILIRUBIN,TOTAL 2.6 MG/DL (0.2-1.0)
[2019-12-23 09:47] LABS: BILIRUBIN,DIRECT 2.2 MG/DL (0.0-0.3)
[2019-12-23 10:30] VITALS: BP 148/88
[2019-12-23] MEDS ORDERED: Albuterol ud Inhalation HHN ONE (10:45)
[2019-12-23] MEDS ORDERED: PREDNISONE20 MG ORAL (11:15)
[2019-12-23] MEDS ORDERED: ALBUTEROL SULF8.5 G1 INH (11:15)
--- NOTE | 2019-12-23 11:31 | Diagnostic Imaging Report ---
Indication: Abdominal pain, abnormal liver function tests, distention Technique: Solorzano-scale and duplex images of the upper abdomen were obtained Comparison: none Findings: Gallbladder demonstrates wall thickening. No definite stones. Sonographic Brower's sign is negative. Common bile duct measures 4 mm in diameter. No intrahepatic biliary ductal dilatation. Liver demonstrates enlargement, coarsened echogenicity and surface nodularity. No focal abnormality Portal vein and hepatic veins are patent. Pancreas is obscured by bowel gas. Spleen is unremarkable. Left kidney measures and 0.6 cm in length. Right kidney measures 9.9 cm length. Both kidneys demonstrate normal echogenicity. There is no hydronephrosis. No focal abnormality . Abdominal aorta is partially obscured by bowel gas, visualized portions are non-aneurysmal . There is ascites fluid Impression: Evidence of hepatic cirrhosis, with coarse in echogenicity and surface nodularity Ascites Negative for gallstones. Gallbladder wall thickening, likely related to the above, although possibility of acute acalculous cholecystitis should also be considered Note nonvisualization of the pancreas and portions of the abdominal aorta
[2019-12-23 11:43] LABS: APPEARANCE,URINE CLEAR; BILIRUBIN, URINE 2+ (NEGATIVE); COLOR,URINE BROWN; GLUCOSE, URINE (UA) NEGATIVE (NEGATIVE); KETONES,URINE NEGATIVE (NEGATIVE); LEUKOCYTE ESTERASE ,URINE 1+ (NEGATIVE); NITRITE,URINE NEGATIVE (NEGATIVE); PH,URINE 6 (4.5-8.0); PROTEIN,URINE NEGATIVE (NEGATIVE); UROBILINOGEN,URINE 12 MG/DL (0.0-1.0)
[2019-12-23 12:00] VITALS: BP 139/78
--- NOTE | 2019-12-23 15:01 | Diagnostic Imaging Report ---
Indication: Shortness of breath Technique: One view of the chest Comparison: 09/10/2019 Findings: Was optimal inspiration currently. No definite acute infiltrates, effusions, or congestion. There is mild central bronchial wall thickening. Mild interstitial prominence likely reflects COPD changes demonstrated on previous CT scans. The heart size is upper limits normal. Impression: No acute process Likely COPD changes
== END 2019-12-23 12:00 | disposition home or self-care (01) ==
LOC: EDBD 08:31 → EMR 08:45 → MERGE 08:45 → EMR 12:00
DX: J20.9 Acute bronchitis, unspecified (principal); E11.9 Type 2 diabetes mellitus without complications; I10 Essential (primary) hypertension; Z86.19 Personal history of other infectious and parasitic diseases; R10.9 Unspecified abdominal pain
CPT/HCPCS: 36415; 71045; 76700; 80053; 81003; 82248; 83605; 83735; 83880; 84484; 85025; 87040; 93005; 94640; 96365; 96375; 99284; J2930; J7030; U0002

== ENCOUNTER 2020-02-28 17:48 | Emergency (ER) | payer MEDICARE, MEDICAID ==
[~2020-02-28] VITALS: Ht 165.1 cm; Wt 65.8 kg
[~2020-02-28 17:48] MED LIST changes: +ALBUTEROL SULF8.5 G1 INH; +PREDNISONE20 MG ORAL
[2020-02-28 18:05] VITALS: BP 133/87
--- NOTE | 2020-02-28 18:07 | Emergency Room Report ---
History of Present Illness General Chief Complaint: Abdominal Pain Source: Patient, Significant Other Present Illness HPI Disclaimer: Please note that this report is being documented using DRAGON technology. This can lead to erroneous entry secondary to incorrect interpretation by the dictating instrument. HPI: 65-year-old male history of hepatitis C, hypertension, diabetes, peptic ulcer disease status post banding presents for evaluation abdominal pain. Patient reports 1 week worsening abdominal distention and pain as well as protr uding umbilicus. Denies prior history of surgery. He reports prior GI bleeds. Reports intermittent vomiting but no hematemesis or melena or hematochezia. Reports history of hepatitis. Feels hot and fatigued. COVID-19 tested negative 2 weeks ago. 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 EOMI. Cardiovascular: Tachycardic. S1 and S2 normal. No murmur appreciated Resp: Normal work of breathing. Audible wheezing and cough Abdomen: Abdomen is firm and distended. Diffusely tender to palpation and warm to the touch. Protruding umbilicus without overlying skin changes. Skin: Intact. No abrasions, laceration or rash over the exposed skin MSK: Normal tone and bulk. Moving all extremities. No obvious deformity. Neuro: Awake and alert. Mentating appropriately. Procedures Critical Care Time Critical Care Time Total critical care time: Approximately 45 minutes Due to a high probability of clinically significant, life threatening deterioration, the patient required the highest level of preparedness to intervene emergently and I personally spent this critical care time directly and personally managing the patient. This critical care time included obtaining a history, examining the patient, pulse oximetry, ordering and reviewing studies, ordering treatments, evaluating response to treatment and updating management plan as needed, frequent reassessment and discussion with other providers as well as arranging for ultimate disposition. This critical to care time was performed to assess and manage the high probability of life-threatening deterioration that could result in multiorgan failure. This critical care time is separate from the separately billable procedures and treating other patients. Medical Decision Making Diagnostic Impression: Primary Impression: Peritonitis Additional Impressions: Pancreatitis UTI (urinary tract infection) ER Course Is a 65-year-old male history of hepatitis, GI bleed presents for evaluation of abdominal pain. Concern for incarcerated hernia, strangulated hernia, peritonitis, ascites, pancreatitis, cholecystitis, GI bleed, mesenteric ischemia among others. Ordered stat labs and abdominal CT. Chest x-ray does not show infiltrate. COVID-19 rapid swab is negative. Elevated lactate at 2.5 patient receiving 30 cc/kg IV fluid bolus. Received empiric antibiotics for peritonitis with Flagyl and ceftriaxone. Labs show elevated LFTs consistent with his history of hepatitis. Bilirubin also elevated. Lipase elevated higher than its been on previous visits. CT consistent with large volume ascites and enteritis as well as findings consistent with hepatitis and esophageal varices which are in the patient's history. UTI concerning for acute urinary tract infection. Patient is already received ceftriaxone. Patient will be admitted and required transfer to [facility]. Going to [facility]. Dr. Sanchez is the accepting physician. Will arrange transport. Sepsis reevaluation: I, Dr. Robbie Vera, reevaluated the patient Capillary refill: Less than 2 seconds MAP: 87 Heart rate: 104 Respiratory rate: 25 Initial Lactate: 2.5 Repeat Lactate: Pending Pressors: Not indicated No signs of fluid overload Laboratory Tests Test 02/28/20 18:20 White Blood Count 9.5 K/UL (4.8-10.8) Red Blood Count 2.87 M/UL (4.70-6.10) L Hemoglobin 8.4 G/DL (14.2-18.0) L Hematocrit 27.8 % (42.0-52.0) L Mean Corpuscular Volume 97 FL (80-99) Mean Corpuscular Hemoglobin 29.2 PG (27.0-31.0) Mean Corpuscular Hemoglobin Concent 30.1 G/DL (32.0-36.0) L Red Cell Distribution Width 21.5 % (11.6-14.8) H Platelet Count 140 K/UL (150-450) L Mean Platelet Volume 8.3 FL (6.5-10.1) Neutrophils (%) (Auto) 68.5 % (45.0-75.0) Lymphocytes (%) (Auto) 17.3 % (20.0-45.0) L Monocytes (%) (Auto) 12.9 % (1.0-10.0) H Eosinophils (%) (Auto) 0.4 % (0.0-3.0) Basophils (%) (Auto) 0.9 % (0.0-2.0) Prothrombin Time 16.1 SEC (9.30-11.50) H Prothrombin Time INR 1.5 (0.9-1.1) H Activated Partial Thromboplast Time 24 SEC (23-33) Sodium Level 136 MMOL/L (136-145) Potassium Level 3.9 MMOL/L (3.5-5.1) Chloride Level 104 MMOL/L (98-107) Carbon Dioxide Level 25 MMOL/L (21-32) Anion Gap 8 mmol/L (5-15) Blood Urea Nitrogen 9 mg/dL (7-18) Creatinine 1.2 MG/DL (0.55-1.30) Estimated Glomerular Filtration Rate > 60 mL/min (>60) Glucose Level 96 MG/DL (74-106) Lactic Acid Level 2.50 mmol/L (0.4-2.0) H Calcium Level 7.7 MG/DL (8.5-10.1) L Total Bilirubin 3.7 MG/DL (0.2-1.0) H Direct Bilirubin 2.4 MG/DL (0.0-0.3) H Aspartate Amino Transferase (AST) 89 U/L (15-37) H Alanine Aminotransferase (ALT) 37 U/L (12-78) Alkaline Phosphatase 368 U/L (46-116) H Total Protein 8.2 G/DL (6.4-8.2) Albumin 1.8 G/DL (3.4-5.0) L Globulin 6.4 g/dL Albumin/Globulin Ratio 0.3 (1.0-2.7) L Lipase 779 U/L (73-393) H Microbiology Date/Time Source Procedure Growth Status 02/28/20 18:30 Nasopharynx SARS-CoV-2 RdRp Gene Assay - Final Complete EKG Diagnostic Results Troponin ordered: Yes When was troponin ordered?: Feb 28, 2020 EKG Time: 18:13 Rate: normal Rhythm: NSR ST Segments: no acute changes Other Impression Sinus rhythm, left axis, normal intervals, no ST segment changes Rhythm Strip Diag. Results Rhythm Strip Time: 18:13 EP Interpretation: yes Rate: 97 Rhythm: NSR, no PVC's, no ectopy Chest X-Ray Diagnostic Results Chest X-Ray Diagnostic Results : Chest X-Ray Ordered: Yes # of Views/Limited/Complete: 1 View Indication: Shortness of Breath EP Interpretation: Yes Interpretation: no consolidation, no effusion, no pneumothorax Impression: No acute disease Electronically Signed by: Electronically signed by Dr. Robbie Vera MD CT/MRI/US Diagnostic Results CT/MRI/US Diagnostic Results : Impression Final Report EXAM: CT Abdomen and Pelvis With Intravenous Contrast CLINICAL HISTORY: ABD PAIN TECHNIQUE: Axial computed tomographyimages of the abdomen and pelviswith intravenous contrast. CTDI is 11.20 mGyand DLP is 428.60 mGy-cm. One or more of the following dose reduction techniqueswere used: automated exposure control, adjustment of the mAand/or kVaccording to patient size, use of iterative reconstruction technique. COMPARISON: CT abdomen and pelvis dated 09/02/2019 FINDINGS: Lung bases:Bibasilar atelectasis. ABDOMEN: Liver:Cirrhotic appearing liver. Gallbladder and bile ducts:Unremarkable. Pancreas:Unremarkable. Spleen:Unremarkable. Adrenals:Unremarkable. Kidneys and ureters:Unremarkable. Stomach and bowel: Moderate wall thickening of the small bowel loopswhich mayrepresent nonspecific enteritis/hepatic enteropathy. PELVIS: Appendix:Appendix is not visualized. Bladder:Unremarkable. Reproductive: Suspected hydroceleswithin the scrotum. ABDOMEN and PELVIS: Intraperitoneal space: Large volume of ascites. Bones/joints:No acute fracture. No dislocation. Soft tissues:Anasarca. Vasculature: Portosystemic collaterals to include esophageal varices. Lymph nodes:Unremarkable. IMPRESSION: 1. Cirrhotic appearing liver. 2. Large volume of ascites. 3. Portosystemic collaterals to include esophageal varices. 4. Moderate wall thickening of the small bowel loopswhich mayrepresent nonspecific enteritis/hepatic enteropathy. Radiologist: Imer Martino MD Electronically Signed: 02/28/20 20:19 Last Vital Signs Date Time Temp Pulse Resp B/P (MAP) Pulse Ox O2 Delivery O2 Flow Rate FiO2 02/28/20 17:55 99.0 100 16 128/82 (97) 100 Room Air Disposition: SHORT-TERM HOSP Condition: Stable Robbie Vera MD Feb 28, 2020 18:07
[2020-02-28] MEDS ORDERED: Omnipaque-300 100ml vial INJ PRN (18:15)
[2020-02-28 18:55] LABS: INR 1.5 (0.9-1.1)
[2020-02-28 18:56] LABS: ANION GAP 8 mmol/L (5-15); BLOOD UREA NITROGEN 9 mg/dL (7-18); CALCIUM 7.7 MG/DL (8.5-10.1); CARBON DIOXIDE 25 MMOL/L (21-32); CHLORIDE 104 MMOL/L (98-107); CREATININE 1.2 MG/DL (0.55-1.30); POTASSIUM 3.9 MMOL/L (3.5-5.1); SODIUM 136 MMOL/L (136-145)
[2020-02-28 19:01] VITALS: BP 158/83
[2020-02-28 19:08] LABS: BASOPHILS % (AUTO) 0.9 % (0.0-2.0); EOSINOPHILS % (AUTO) 0.4 % (0.0-3.0); HEMATOCRIT 27.8 % (42.0-52.0); HEMOGLOBIN 8.4 G/DL (14.2-18.0); LYMPHOCYTES % (AUTO) 17.3 % (20.0-45.0); MEAN CORPUSCULAR VOLUME 97 FL (80-99); MONOCYTES % (AUTO) 12.9 % (1.0-10.0); NEUTROPHILS % (AUTO) 68.5 % (45.0-75.0); PLATELET COUNT 140 K/UL (150-450); RED BLOOD COUNT 2.87 M/UL (4.70-6.10); RED CELL DISTRIBUTION WIDTH 21.5 % (11.6-14.8); WHITE BLOOD COUNT 9.5 K/UL (4.8-10.8)
[2020-02-28 19:11] LABS: ALANINE AMINOTRANSFERASE 37 U/L (12-78); ALBUMIN 1.8 G/DL (3.4-5.0); ALBUMIN/GLOBULIN RATIO 0.3 (1.0-2.7); ALKALINE PHOSPHATASE 368 U/L (46-116); ASPARTATE AMINO TRANSFERASE 89 U/L (15-37); BILIRUBIN,TOTAL 3.7 MG/DL (0.2-1.0)
[2020-02-28 19:17] LABS: BILIRUBIN,DIRECT 2.4 MG/DL (0.0-0.3)
[2020-02-28] MEDS ORDERED: cefTRIAXone 1 GM in NS 55 ML IVPB ONE (19:30)
--- NOTE | 2020-02-28 19:30 | Diagnostic Imaging Report ---
EXAM: XR Chest, 1 View CLINICAL HISTORY: COUGH TECHNIQUE: Frontal view of the chest. COMPARISON: Chest x-ray dated 12/23/2019 FINDINGS: Lungs: Limited evaluation of the right lower lung secondary to overlying soft tissue densities. Pleural space: Unremarkable. Heart: Unremarkable. Mediastinum: Unremarkable. Bones/joints: Unremarkable. IMPRESSION: Limited evaluation of the right lower lung secondary to overlying soft tissue densities. Otherwise the lungs are unremarkable.
[2020-02-28 20:00] VITALS: BP 148/96
--- NOTE | 2020-02-28 20:20 | Diagnostic Imaging Report ---
EXAM: CT Abdomen and Pelvis With Intravenous Contrast CLINICAL HISTORY: ABD PAIN TECHNIQUE: Axial computed tomography images of the abdomen and pelvis with intravenous contrast. CTDI is 11.20 mGy and DLP is 428.60 mGy-cm. One or more of the following dose reduction techniques were used: automated exposure control, adjustment of the mA and/or kV according to patient size, use of iterative reconstruction technique. COMPARISON: CT abdomen and pelvis dated 09/02/2019 FINDINGS: Lung bases: Bibasilar atelectasis. ABDOMEN: Liver: Cirrhotic appearing liver. Gallbladder and bile ducts: Unremarkable. Pancreas: Unremarkable. Spleen: Unremarkable. Adrenals: Unremarkable. Kidneys and ureters: Unremarkable. Stomach and bowel: Moderate wall thickening of the small bowel loops which may represent nonspecific enteritis/hepatic enteropathy. PELVIS: Appendix: Appendix is not visualized. Bladder: Unremarkable. Reproductive: Suspected hydroceles within the scrotum. ABDOMEN and PELVIS: Intraperitoneal space: Large volume of ascites. Bones/joints: No acute fracture. No dislocation. Soft tissues: Anasarca. Vasculature: Portosystemic collaterals to include esophageal varices. Lymph nodes: Unremarkable. IMPRESSION: 1. Cirrhotic appearing liver. 2. Large volume of ascites. 3. Portosystemic collaterals to include esophageal varices. 4. Moderate wall thickening of the small bowel loops which may represent nonspecific enteritis/hepatic enteropathy.
[2020-02-28 21:34] LABS: APPEARANCE,URINE SLIGHTLY CLOUDY; BILIRUBIN, URINE 2+ (NEGATIVE); COLOR,URINE BROWN; GLUCOSE, URINE (UA) NEGATIVE (NEGATIVE); KETONES,URINE 1+ (NEGATIVE); LEUKOCYTE ESTERASE ,URINE 2+ (NEGATIVE); NITRITE,URINE POSITIVE (NEGATIVE); PH,URINE 5 (4.5-8.0); PROTEIN,URINE 2+ (NEGATIVE); UROBILINOGEN,URINE 12 MG/DL (0.0-1.0)
[2020-02-28 21:58] VITALS: BP 159/83
[2020-02-28 22:28] VITALS: BP 146/90
[2020-02-28] MEDS ORDERED: Acetaminophen 500mg (ES) tab ORAL ONE (23:15)
[2020-02-28 23:23] VITALS: BP 142/80
--- NOTE | 2020-02-29 00:22 | Diagnostic Imaging Report ---
EXAM: XR Chest, 1 View CLINICAL HISTORY: SOB TECHNIQUE: Frontal view of the chest. COMPARISON: Chest x-ray dated 02/28/2020 FINDINGS: Lungs: Unremarkable. Pleural space: Unremarkable. Heart: Unremarkable. Mediastinum: Unremarkable. Bones/joints: Unremarkable. IMPRESSION: Normal chest x-ray.
[2020-02-29 01:20] VITALS: BP 154/96
== END 2020-02-29 01:20 | disposition short-term general hospital (02) ==
LOC: EMR 18:10
DX: K65.9 Peritonitis, unspecified (principal); K85.90 Acute pancreatitis without necrosis or infection, unspecified; N39.0 Urinary tract infection, site not specified; Z20.828 Contact with and (suspected) exposure to other viral communicable diseases; R50.9 Fever, unspecified; R06.02 Shortness of breath; R05 Cough; I10 Essential (primary) hypertension; J44.9 Chronic obstructive pulmonary disease, unspecified; E11.9 Type 2 diabetes mellitus without complications
CPT/HCPCS: 36415; 71045; 74177; 80053; 81003; 82248; 83605; 83690; 85025; 85610; 85730; 86850; 86900; 86901; 87040; 87086; 87181; 93005; 96365; 96368; 96375; 99291; J2405; J7030; U0002

== ENCOUNTER 2020-03-22 07:42 | Emergency (ER) | payer MEDICARE, MEDICAID ==
[~2020-03-22] VITALS: Ht 167.6 cm; Wt 68.9 kg
[2020-03-22 07:46] VITALS: BP 137/92
--- NOTE | 2020-03-22 07:48 | Emergency Room Report ---
History of Present Illness General Chief Complaint: Abdominal Pain Source: Patient, EMS Present Illness HPI Disclaimer: Please note that this report is being documented using DRAGON technology. This can lead to erroneous entry secondary to incorrect interpretation by the dictating instrument. HPI: 65-year-old male history of hepatitis C, chronic cirrhosis requiring recurrent paracentesis, hypertension, diabetes, peptic ulcer, varices status post banding presents for evaluation abdominal pain. Reports abdominal distention and pressure for the past 3 days. Last paracentesis was 1 week ago. Denies fever, chills, nausea, vomiting or diarrhea. Denies dysuria hematuria. Denies cough, congestion or chest pain. Tested negative for COVID-19 on 02/27. Reports wheezing and states he was not given an albuterol inhaler when he left the hospital last week. 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 EOMI. Cardiovascular: RRR. S1 and S2 normal. No murmur appreciated Resp: Normal work of breathing. Bilateral wheezes. No cough. Abdomen: Abdomen is distended, tympanic. Nontender. Skin: Intact. No abrasions, laceration or rash over the exposed skin MSK: Normal tone and bulk. Moving all extremities. No obvious deformity. Neuro: Awake and alert. Mentating appropriately. Procedures Critical Care Time Critical Care Time Total critical care time: Approximately 45 minutes Due to a high probability of clinically significant, life threatening deterioration, the patient required the highest level of preparedness to intervene emergently and I personally spent this critical care time directly and personally managing the patient. This critical care time included obtaining a history, examining the patient, pulse oximetry, ordering and reviewing studies, ordering treatments, evaluating response to treatment and updating management plan as needed, frequent reassessment and discussion with other providers as well as arranging for ultimate disposition. This critical to care time was performed to assess and manage the high probability of life-threatening deterioration that could result in multiorgan failure. This critical care time is separate from the separately billable procedures and treating other patients. Additional Procedure Procedure Narrative Paracentesis procedure note. military technician assisted me during this procedure. Identified large pocket of free intra-abdominal fluid without overlying bowel in the left lower quadrant. Area was sterilized with chlorhexidine prep and sterile dressings applied. Pocket was redemonstrated and marked. Local anesthetic with 1% lidocaine approximately 8 cc. Able to insert the catheter and advanced. Extracted 50 cc of straw-colored intra-abdominal fluid and sent for analysis. Evacuated additional 3.4 L. Sterile bandage applied. Patient tolerated this procedure well. No blood loss. No complications. Medical Decision Making Diagnostic Impression: Primary Impression: Pancreatitis Additional Impressions: Cirrhosis Abdominal ascites COPD exacerbation ER Course 55-year-old male history of hepatitis C and recurrent ascites presents for abdominal distention. Differential includes was not limited to recurrent ascites, pancreatitis, gastritis, gastroenteritis, cholecystitis among others. Bedside ultrasound consistent with large volume ascites. Paracentesis performed by me at bedside under ultrasound guidance with extraction of approximately 3.4 L straw-colored fluid. Tolerated procedure well without complications. Fluid sent for analysis does not appear infectious. Little concern for SBP at this time. Patient feels somewhat better though still complaining of abdominal pain his abdomen is still is distended. May require further paracentesis. Breathing somewhat improved though wheezing remains. He is saturating 99%. Lipase continues to elevate based on previous labs. Bilirubin, LFTs, alkaline phosphatase are unchanged. His white count is mildly elevated as well. May be reactionary as he is afebrile with no other signs of infection. Discussed with Dr. Donovan at [facility] with the patient's insurance capitated for transfer. Pending a Covid test he will be transferred. Laboratory Tests Test 03/22/20 08:05 03/22/20 09:30 White Blood Count 14.4 K/UL (4.8-10.8) H Red Blood Count 2.75 M/UL (4.70-6.10) L Hemoglobin 8.1 G/DL (14.2-18.0) L Hematocrit 25.3 % (42.0-52.0) L Mean Corpuscular Volume 92 FL (80-99) Mean Corpuscular Hemoglobin 29.3 PG (27.0-31.0) Mean Corpuscular Hemoglobin Concent 31.8 G/DL (32.0-36.0) L Red Cell Distribution Width 21.0 % (11.6-14.8) H Platelet Count 273 K/UL (150-450) Mean Platelet Volume 7.6 FL (6.5-10.1) Neutrophils (%) (Auto) 78.5 % (45.0-75.0) H Lymphocytes (%) (Auto) 9.1 % (20.0-45.0) L Monocytes (%) (Auto) 10.9 % (1.0-10.0) H Eosinophils (%) (Auto) 0.2 % (0.0-3.0) Basophils (%) (Auto) 1.3 % (0.0-2.0) Prothrombin Time 17.9 SEC (9.30-11.50) H Prothrombin Time INR 1.7 (0.9-1.1) H Activated Partial Thromboplast Time 29 SEC (23-33) Sodium Level 138 MMOL/L (136-145) Potassium Level 4.1 MMOL/L (3.5-5.1) Chloride Level 108 MMOL/L (98-107) H Carbon Dioxide Level 16 MMOL/L (21-32) L Anion Gap 14 mmol/L (5-15) Blood Urea Nitrogen 26 mg/dL (7-18) H Creatinine 1.6 MG/DL (0.55-1.30) H Estimated Glomerular Filtration Rate 52.7 mL/min (>60) Glucose Level 89 MG/DL (74-106) Calcium Level 8.3 MG/DL (8.5-10.1) L Total Bilirubin 3.8 MG/DL (0.2-1.0) H Direct Bilirubin 3.3 MG/DL (0.0-0.3) H Aspartate Amino Transferase (AST) 98 U/L (15-37) H Alanine Aminotransferase (ALT) 53 U/L (12-78) Alkaline Phosphatase 378 U/L (46-116) H Total Protein 8.0 G/DL (6.4-8.2) Albumin 1.8 G/DL (3.4-5.0) L Globulin 6.2 g/dL Albumin/Globulin Ratio 0.3 (1.0-2.7) L Lipase 1070 U/L (73-393) H Body Fluid Source Paracentesis Body Fluid Volume 24 mL Body Fluid Appearance Slightly cloudy (Clear) Body Fluid RBC 739 /CUMM Body Fluid Total Nucleated Cells 54 /CUMM Body Fluid Polynuclear WBCs (%) 45 % Body Fluid Mononuclear WBCs (%) 47 % Body Fluid Mesothelial Cells (%) 8 % Body Fluid Glucose Pending Body Fluid Total Protein Pending Body Fluid Albumin Pending Body Fluid Comment Diagnostic POCUS Bedside Ultrasound Diagnostics: Bedside US Exam performed: Abd Limited Indication: Abdominal Pain Number of Views: Limited Interpreted by Emergency Physi: Yes Abdomen Limited interpretation: No sonograph Brower sign, Other - Large volume ascites. Impression: Other - Large volume abdominal ascites Electronically Signed by: Electronically signed by Dr. Robbie Vera MD Last Vital Signs Date Time Temp Pulse Resp B/P (MAP) Pulse Ox O2 Delivery O2 Flow Rate FiO2 03/22/20 07:36 98.2 81 18 151/74 (99) 100 Room Air Disposition: SHORT-TERM HOSP Condition: Stable Robbie Vera MD Mar 22, 2020 07:48
[2020-03-22 08:41] LABS: BASOPHILS % (AUTO) 1.3 % (0.0-2.0); EOSINOPHILS % (AUTO) 0.2 % (0.0-3.0); HEMATOCRIT 25.3 % (42.0-52.0); HEMOGLOBIN 8.1 G/DL (14.2-18.0); LYMPHOCYTES % (AUTO) 9.1 % (20.0-45.0); MEAN CORPUSCULAR VOLUME 92 FL (80-99); MONOCYTES % (AUTO) 10.9 % (1.0-10.0); NEUTROPHILS % (AUTO) 78.5 % (45.0-75.0); PLATELET COUNT 273 K/UL (150-450); RED BLOOD COUNT 2.75 M/UL (4.70-6.10); WHITE BLOOD COUNT 14.4 K/UL (4.8-10.8)
[2020-03-22 08:50] LABS: CALCIUM 8.3 MG/DL (8.5-10.1); CREATININE 1.6 MG/DL (0.55-1.30); POTASSIUM 4.1 MMOL/L (3.5-5.1)
[2020-03-22 08:56] LABS: INR 1.7 (0.9-1.1)
[2020-03-22 09:01] LABS: ALBUMIN 1.8 G/DL (3.4-5.0); ALBUMIN/GLOBULIN RATIO 0.3 (1.0-2.7); BILIRUBIN,DIRECT 3.3 MG/DL (0.0-0.3); BILIRUBIN,TOTAL 3.8 MG/DL (0.2-1.0)
[2020-03-22 10:00] VITALS: BP 116/76
[2020-03-22] MEDS: Albuterol/Ipratropium 3ml neb HHN SCH ×3 (10:15→11:06)
[2020-03-22] MEDS ORDERED: Solu-MEDROL 125mg Inj IVP ONE (12:15)
[2020-03-22 14:51] VITALS: BP 118/80
[2020-03-22 16:22] VITALS: BP 120/71
[2020-03-22 18:11] VITALS: BP 122/72
== END 2020-03-22 18:11 | disposition left against medical advice (07) ==
LOC: EDBD 07:42 → EMR 08:06 → EDBEDREQ 12:16 → EMR 18:11
DX: K85.90 Acute pancreatitis without necrosis or infection, unspecified (principal); K74.60 Unspecified cirrhosis of liver; R18.8 Other ascites; Z20.828 Contact with and (suspected) exposure to other viral communicable diseases; J44.1 Chronic obstructive pulmonary disease with (acute) exacerbation; I10 Essential (primary) hypertension; E11.9 Type 2 diabetes mellitus without complications; J44.9 Chronic obstructive pulmonary disease, unspecified
CPT/HCPCS: 49083; 80053; 82248; 82945; 83050; 83690; 84157; 85025; 85610; 85730; 87070; 87205; 89051; 94640; 96374; 99291; J2930; U0002; J7620

== ENCOUNTER 2020-03-22 20:24 | Emergency (ER) | payer MEDICARE, MEDICAID ==
[~2020-03-22] VITALS: Ht 167.6 cm; Wt 69.4 kg
[2020-03-22 20:50] VITALS: BP 125/85
--- NOTE | 2020-03-23 02:13 | Emergency Room Report ---
Physical Exam Vital Signs Date Time Temp Pulse Resp B/P (MAP) Pulse Ox O2 Delivery O2 Flow Rate FiO2 03/22/20 20:39 98.2 74 14 120/71 (87) 99 Room Air Medical Decision Making ER Course I spoke with Dr. Ordonez who is from [place]. Patient's insurance is capitated to that facility. Patient is stable for transfer. Last Vital Signs Date Time Temp Pulse Resp B/P (MAP) Pulse Ox O2 Delivery O2 Flow Rate FiO2 03/22/20 20:50 70 16 Room Air 03/22/20 20:50 125/85 99 03/22/20 20:39 98.2 Referrals: CORDELIA CHAMPION,REFERRING (PCP) Shena Benz M.D. Mar 23, 2020 02:13
[2020-03-23] MEDS ORDERED: Morphine Sulfate 2mg/ml Inj(IV/IM USE ONLY) IVP ONE (02:15)
[2020-03-23 03:00] VITALS: BP 122/83
--- NOTE | 2020-03-26 23:01 | Emergency Room Report ---
History of Present Illness General Chief Complaint: Abdominal Pain Source: Patient, EMS Present Illness HPI 65-year-old male presents for evaluation. Patient is stating that he wants to be admitted to the hospital. Was seen earlier today for abdominal distention and paracentesis. Upon transfer ambulance here to take patient to [facility] facility patient became rude and aggressive and stated he did not want to leave. Patient left AMA. Patient returns stating he wants to be admitted. Apologizes states that he needs to stay in the hospital. Denies any abdominal pain. Denies any nausea or vomiting. No other aggravating relieving factors. 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 COVID-19 Screening: Negative COVID-19 COVID-19 Testing Source: t-1 Patient History Past Medical History: DM, HTN, asthma, COPD, other - paracentesis Immunizations: UTD Reviewed Nursing Documentation: PMH: Agreed; PSxH: Agreed Nursing Documentation-PMH Past Medical History: No History, Except For Hx Hypertension: Yes Hx Asthma: Yes Hx COPD: Yes Hx Diabetes: Yes Hx Gastrointestinal Problems: Yes - paracentesis Hx Neurological Problems: No Review of Systems All Other Systems: negative except mentioned in HPI Physical Exam Vital Signs Date Time Temp Pulse Resp B/P (MAP) Pulse Ox O2 Delivery O2 Flow Rate FiO2 03/22/20 20:39 98.2 74 14 120/71 (87) 99 Room Air Sp02 EP Interpretation: reviewed, normal General Appearance: no apparent distress, alert, GCS 15, non-toxic Head: normocephalic, atraumatic Eyes: bilateral eye normal inspection, bilateral eye PERRL ENT: hearing grossly normal, normal pharynx, no angioedema, normal voice Neck: full range of motion, supple/symm/no masses Respiratory: chest non-tender, lungs clear, normal breath sounds, speaking full sentences Cardiovascular #1: regular rate, rhythm, no edema Cardiovascular #2: 2+ carotid (R), 2+ carotid (L), 2+ radial (R), 2+ radial (L), 2+ dorsalis pedis (R), 2+ dorsalis pedis (L) Gastrointestinal: normal bowel sounds, soft, no guarding, no rebound, distended Rectal: deferred Genitourinary: normal inspection, no CVA tenderness Musculoskeletal: back normal, normal range of motion, gait/station normal, non- tender Neurologic: alert, motor strength/tone normal, oriented x3, sensory intact, responsive, speech normal Psychiatric: judgement/insight normal, memory normal, mood/affect normal, no suicidal/homicidal ideation Reflexes: 3+ bicep (R), 3+ bicep (L), 3+ tricep (R), 3+ tricep (L), 3+ knee (R), 3+ knee (L) Skin: other - see nursing notes Lymphatic: no adenopathy Medical Decision Making Diagnostic Impression: Primary Impression: Abdominal ascites Qualified Codes: R18.8 - Other ascites ER Course 65-year-old male states he has abdominal distention. History of ascites DifferentialSBP, cirrhosis, ascites Patient placed on stretcher. After initial history and physical I reviewed EMR. patient seen earlier today. labs drawn. paracentesis performed by ED physician but patient continues to have pain. patient agrees to admission at this time pending endorsement to accepting facility Last Vital Signs Date Time Temp Pulse Resp B/P (MAP) Pulse Ox O2 Delivery O2 Flow Rate FiO2 03/23/20 03:00 98.0 78 18 122/83 100 Room Air Status: improved Disposition: SHORT-TERM HOSP Condition: Stable Referrals: CORDELIA CHAMPION,REFERRING (PCP) Fran Fonseca MD Mar 26, 2020 23:01
== END 2020-03-23 03:00 | disposition short-term general hospital (02) ==
LOC: EMR 21:00 → EDBEDREQ 03-23 00:58 → EMR 03-23 03:00
DX: R18.8 Other ascites (principal); I10 Essential (primary) hypertension; J44.9 Chronic obstructive pulmonary disease, unspecified; E11.9 Type 2 diabetes mellitus without complications; Z98.890 Other specified postprocedural states
CPT/HCPCS: 96374; 99284